=== PATIENT | female | born 1940 | race African-American/Black ===

== ENCOUNTER 2017-07-12 14:25 | Inpatient (IN) | payer OTHER ==
--- NOTE | 2017-07-12 15:59 | PDOC ---
History of Present Illness - General Chief Complaint: Wound Stated Complaint: Wound Infection Time Seen by Provider: 07/12/17 15:48 History Source: Patient Exam Limitations: No Limitations - History of Present Illness Initial Comments: CHIEF COMPLAINT: 76 y/o afebrile female with PMH HTN, PAD sent in by Dennis Gold for admission for gangrenous toe. HISTORY OF PRESENT ILLNESS: The patient states 2 months ago the toes on her right foot got run over by a wheelchair. She has been having pain ever since. She has been seeing Dr. Gold who noticed gangrene today and sent her here for amputation. Vital signs on arrival are within normal limits. REVIEW OF SYSTEMS: GENERAL/CONSTITUTIONAL: Subjective fever/chills. No weakness. No weight change. MUSCULOSKELETAL: No joint or muscle swelling or pain. No neck or back pain. SKIN: No rash or easy bruising. NEUROLOGIC: No headache, vertigo, loss of consciousness, or loss of sensation. PHYSICAL EXAM: VITAL_SIGNS: within normal limits GENERAL_APPEARANCE: alert, cooperative, no obvious discomfort. MENTAL_STATUS: speech clear, oriented X 3, responds appropriately to questions. NEURO: motor intact and sensory intact in injured extremity. EXTREMITIES: decreased dorsalis pedis pulse right foot. Distal half of right foot is cool. 3rd toe with open wound with active purulent, foul smelling discharge that is TTP. SKIN: warm, dry, good color. Past History - Past Medical History Allergies/Adverse Reactions: Allergies Allergy/AdvReac Type Severity Reaction Status Date / Time No Known Allergies Allergy Verified 07/12/17 15:03 Home Medications: Ambulatory Orders Furosemide 20 mg PO DAILY 07/12/17 Losartan/Hydrochlorothiazide [Losartan-Hctz 100-12.5 mg Tab] 1 tab PO DAILY Meloxicam 15 mg PO DAILY PRN 07/12/17 Metoprolol Succinate 50 mg PO DAILY 07/12/17 Terbinafine HCl 250 mg PO DAILY 07/12/17 Tramadol HCl 50 mg PO DAILY PRN 07/12/17 COPD: No DVT: No HTN: Yes Other medical history: PVD - Immunization History Immunization Up to Date: Yes - Suicide/Smoking/Psychosocial Hx Smoking History: Never smoked Have you smoked in the past 12 months: No Information on smoking cessation initiated: No Hx Alcohol Use: No Drug/Substance Use Hx: No Substance Use Type: None *Physical Exam - Vital Signs Last Vital Signs Temp Pulse Resp BP Pulse Ox 98.3 F 87 16 159/85 99 07/12/17 15:04 07/12/17 15:04 07/12/17 15:04 07/12/17 15:04 07/12/17 15:04 ED Treatment Course - LABORATORY CBC & Chemistry Diagram: 07/12/17 16:20 07/12/17 16:20 Medical Decision Making - Medical Decision Making A/P: 76 y/o female sent by Dr. Gold for admission for gangrenous toe. Plan is to draw labs and admit to hospitalist. *DC/Admit/Observation/Transfer Diagnosis at time of Disposition: Gangrenous toe - Discharge Dispostion Condition at time of disposition: Stable Admit: Yes - Referrals Referrals: Hal Gold [Primary Care Provider] - - Patient Instructions - Post Discharge Activity
[2017-07-12 16:50] LABS: BASO % 0.6 % (0-2.0); EOS % 6.1 % (0-4.5); HEMATOCRIT 32.1 % (32.4-45.2); HEMOGLOBIN 10.6 GM/dL (10.7-15.3); MEAN CELL VOLUME 87.7 fl (80-96); MEAN PLT VOLUME 8.5 fl (7.5-11.1); MONO % 9.5 % (3.8-10.2); NEUT % 63.8 % (42.8-82.8); PLATELET COUNT 325 K/MM3 (134-434); RBC 3.66 M/mm3 (3.60-5.2); RDW 12.8 % (11.6-15.6); WHITE BLOOD COUNT 6.8 K/mm3 (4.0-10.0)
[2017-07-12 17:05] LABS: INR 1.12 (0.82-1.09); PROTHROMBIN TIME (PATIENT) 12.7 SEC (9.98-11.88)
[2017-07-12] MEDS ORDERED: morphine CARPU-JECT 2 MG/1 ML DISP.SYRIN IVPUSH ONE (17:25)
[2017-07-12] MEDS ORDERED: MORPHINE SULFATE 10 MG/1 ML *VIAL ONE (17:28)
[2017-07-12 18:53] LABS: ALBUMIN 4.1 g/dl (3.4-5.0); ALK PHOS 95 U/L (45-117); ANION GAP 7 (8-16); BILIRUBIN,TOTAL 0.3 mg/dL (0.2-1.0); BLOOD UREA NITROGEN 46 mg/dL (7-18); CALCIUM 9.9 mg/dL (8.5-10.1); CHLORIDE 103 mmol/L (98-107); CO2 30 mmol/L (21-32); CREATININE 1.8 mg/dL (0.55-1.02); GLUCOSE,RANDOM 101 mg/dL (74-106); POTASSIUM 4.2 mmol/L (3.5-5.1); SGOT/AST 12 U/L (15-37); SGPT/ALT 16 U/L (12-78); SODIUM 140 mmol/L (136-145); TOT PROT 8.1 g/dl (6.4-8.2)
--- NOTE | 2017-07-12 18:55 | PN ---
Progress Note (short form) - Note Progress Note: [facility] Pt seen in wound care clinic today. Pt has right toe gangrene after trauma from wheelchair two months ago. Now here for workup. Pt will need CTA if Cr is normal. Pt will need angiogram to open circulation. Outpt US showed sfa disease. Will make pt npo past midnight. Dennis Gold DO
[2017-07-12] MEDS ORDERED: MORPHINE SULFATE 10 MG/1 ML *VIAL IVPUSH PRN (20:35)
--- NOTE | 2017-07-12 21:30 | HP ---
CHIEF COMPLAINT: right toe gangrene PCP: In [facility], vascular surgeon: Asif HISTORY OF PRESENT ILLNESS: This is a 76 year old female with a past medical history significant for PAD who presented to the ED from wound clinic for possible gangrene of right toe. Pt states that her toe was run over by a wheelchair a couple months ago and her doctor has been giving her pain medication without relief. She was also treated with a course of antibiotics and was started on terbinafine a couple weeks ago. ER course was notable for: (1) WBC 6.8 (2) BUN 46, Cr 1.8 Recent Travel: pt denies PAST MEDICAL HISTORY: HTN, PAD, OA knees PAST SURGICAL HISTORY: pt denies Social History: Smoking: pt denies Alcohol: pt denies Drugs: pt denies Family History: mother and father both in their 80s, h/o CVA 5 brothers all with HTN Allergies No Known Allergies Allergy (Verified 07/12/17 15:03) HOME MEDICATIONS: 3 Medication Instructions Recorded Furosemide 20 mg PO DAILY 07/12/17 Losartan/Hydrochlorothiazide 1 tab PO DAILY 07/12/17 [Losartan-Hctz 100-12.5 mg Tab] Meloxicam 15 mg PO DAILY PRN 07/12/17 Metoprolol Succinate 50 mg PO DAILY 07/12/17 Terbinafine HCl 250 mg PO DAILY 07/12/17 Tramadol HCl 50 mg PO DAILY PRN 07/12/17 REVIEW OF SYSTEMS CONSTITUTIONAL: Absent: fever, chills, diaphoresis, generalized weakness, malaise, loss of appetite, weight change HEENT: Absent: rhinorrhea, nasal congestion, throat pain, throat swelling, difficulty swallowing, mouth swelling, ear pain, eye pain, visual changes CARDIOVASCULAR: Absent: chest pain, syncope, palpitations, irregular heart rate, lightheadedness , peripheral edema RESPIRATORY: Absent: cough, shortness of breath, dyspnea with exertion, orthopnea, wheezing, stridor, hemoptysis GASTROINTESTINAL: Absent: abdominal pain, abdominal distension, nausea, vomiting, diarrhea, constipation, melena, hematochezia GENITOURINARY: Absent: dysuria, frequency, urgency, hesitancy, hematuria, flank pain, genital pain MUSCULOSKELETAL: Present: right 3 toe pain and swelling Absent: myalgia, arthralgia, joint swelling, back pain, neck pain SKIN: Absent: rash, itching, pallor HEMATOLOGIC/IMMUNOLOGIC: Absent: easy bleeding, easy bruising, lymphadenopathy, frequent infections ENDOCRINE: Absent: unexplained weight gain, unexplained weight loss, heat intolerance, cold intolerance NEUROLOGIC: Absent: headache, focal weakness or paresthesias, dizziness, unsteady gait, seizure, mental status changes, bladder or bowel incontinence PSYCHIATRIC: Absent: anxiety, depression, suicidal or homicidal ideation, hallucinations. PHYSICAL EXAMINATION Vital Signs - 24 hr 3 07/12/17 07/12/17 15:04 20:54 Temperature 98.3 F 98.8 F Pulse Rate 87 Pulse Rate [ 70 Apical] Respiratory 16 18 Rate Blood Pressure 159/85 Blood Pressure 159/69 [Right Arm] O2 Sat by Pulse 99 100 Oximetry (%) GENERAL: Awake, alert, and fully oriented, in no acute distress. HEAD: Normal with no signs of trauma. EYES: Pupils equal, round and reactive to light, extraocular movements intact, sclera anicteric, conjunctiva clear. No lid lag. EARS, NOSE, THROAT: Ears normal, nares patent, oropharynx clear without exudates. Moist mucous membranes. NECK: Normal range of motion, supple without lymphadenopathy, JVD, or masses. LUNGS: Breath sounds equal, clear to auscultation bilaterally. No wheezes, and no crackles. No accessory muscle use. HEART: Regular rate and rhythm, normal S1 and S2 without murmur, rub or gallop. ABDOMEN: Soft, nontender, not distended, normoactive bowel sounds, no guarding, no rebound, no masses. No hepatomegaly or splenomegaly. MUSCULOSKELETAL: Normal range of motion at all joints. No bony deformities or tenderness. No CVA tenderness. UPPER EXTREMITIES: 2+ pulses, warm, well-perfused. No cyanosis. No clubbing. No peripheral edema. LOWER EXTREMITIES: 2+ pulses, warm, well-perfused. No calf tenderness. 1+ peripheral edema B/L. NEUROLOGICAL: Cranial nerves II-XII intact. Normal speech. Normal gait. PSYCHIATRIC: Cooperative. Good eye contact. Appropriate mood and affect. SKIN: Warm, dry, normal turgor, no rashes or lesions noted, normal capillary refill. erythema to right foot with soft tissue swelling, 3rd toe with darkened discoloration, moist wound with slough, macerated skin, no active discharge, dried serosanguinous dc noted between toes Laboratory Results - last 24 hr 3 07/12/17 07/12/17 07/12/17 16:20 16:20 16:20 WBC 6.8 RBC 3.66 Hgb 10.6 L Hct 32.1 L MCV 87.7 MCH 29.0 MCHC 33.0 RDW 12.8 Plt Count 325 MPV 8.5 Neutrophils % 63.8 Lymphocytes % 20.0 Monocytes % 9.5 Eosinophils % 6.1 H Basophils % 0.6 PT with INR 12.70 H INR 1.12 Sodium Cancelled Potassium Cancelled Chloride Cancelled Carbon Dioxide Cancelled Anion Gap Cancelled BUN Cancelled Creatinine Cancelled Creat Clearance w eGFR Cancelled Random Glucose Cancelled Calcium Cancelled Total Bilirubin Cancelled AST Cancelled ALT Cancelled Alkaline Phosphatase Cancelled Total Protein Cancelled Albumin Cancelled Anti-A Titer Blood Type Antibody Screen 3 07/12/17 07/12/17 07/12/17 16:20 18:17 18:17 WBC RBC Hgb Hct MCV MCH MCHC RDW Plt Count MPV Neutrophils % Lymphocytes % Monocytes % Eosinophils % Basophils % PT with INR INR Sodium 140 Potassium 4.2 Chloride 103 Carbon Dioxide 30 Anion Gap 7 L BUN 46 H Creatinine 1.8 H Creat Clearance w eGFR 27.28 Random Glucose 101 Calcium 9.9 Total Bilirubin 0.3 AST 12 L ALT 16 Alkaline Phosphatase 95 Total Protein 8.1 Albumin 4.1 Anti-A Titer Cancelled Blood Type Cancelled O POSITIVE Antibody Screen Cancelled Negative ECG NSR vent rate94, QTC [address]/T wave changes ASSESSMENT/PLAN: 76yF with PMH HTN, PAD, R knee OA presented with R 3rd toe gangrene from wound clinic. Toe wound with gangrene - xray toe ordered - start unasyn 3g q6h - vascular consult appreciated, podiatry consult ordered by same - lasix IV for edema - ultram for pain MYA - hold meloxicam, losartan and HCTZ - repeat labs in am, renal consult if not improving HTN - cont metoprolol DVT PPX - heparin 5000 units SC ordered, start at 2pm in case of procedure tomorrow. FEN - hold IVF - bmp in am - NPO after midnight Dispo: Pt currently requires inpatient management of her emergent condition. Visit type - Emergency Visit Emergency Visit: Yes ED Registration Date: 07/12/17 Care time: The patient presented to the Emergency Department on the above date and was hospitalized for further evaluation of their emergent condition. - New Patient This patient is new to me today: Yes Date on this admission: 07/12/17 - Critical Care Critical Care patient: No
[2017-07-12] MEDS ORDERED: FUROSEMIDE 40 MG/4 ML INJECTABLE VIAL IVPUSH ONE (21:45)
[2017-07-12] MEDS: traMADol HCL 50 MG TABLET PO PRN (22:48)
[2017-07-12 23:08] VITALS: BMI 25.5
[2017-07-12] MEDS: AMPICILLIN NA/SULBACTAM NA 3 GM in SODIUM CHLORIDE 100 ML IVPB SCH (23:50)
[2017-07-13] MEDS ORDERED: MORPHINE SULFATE 10 MG/1 ML *VIAL IVPUSH ONE (02:02)
[2017-07-13] MEDS: AMPICILLIN NA/SULBACTAM NA 3 GM in SODIUM CHLORIDE 100 ML IVPB SCH ×2 (04:15→09:37)
[2017-07-13] MEDS ORDERED: HEPARIN NA (PORCINE) 5,000 UNITS/ML 1ML VIAL SQ SCH (06:00)
--- NOTE | 2017-07-13 07:59 | CONSULT ---
Consult - text type - Consultation Consultation Note: Patient seen yesterday in wound care clinic and admitted. Patient is a poor historian as to when her problem began. States foot was run over by wheelchair. Somewhere in the last six months. 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 decreased nvs, +gangarene 3rd toe right, xray negative for om, +dry, -drainage, -mal odor, om? gangarene 3rd toe pvd read and appreciated vascular note. MRI today. CRP, ESR, Hgba1c today. Betadine dressing change to 3rd toe right. will follow. Post op shoe to bedside.
--- NOTE | 2017-07-13 08:11 | EKG ---
Test Reason : Blood Pressure : / mmHG Vent. Rate : 094 BPM Atrial Rate : 094 BPM P-R Int : 212 ms QRS Dur : 082 ms QT Int : 352 ms P-R-T Axes : 060 015 029 degrees QTc Int : 440 ms SINUS RHYTHM WITH 1ST DEGREE A-V BLOCK ANTERIOR INFARCT , AGE UNDETERMINED ABNORMAL ECG NO PREVIOUS ECGS AVAILABLE Confirmed by DOMINIC MURILLO MD ([id number]) on 07/13/2017 8:11:10 AM Referred By: Confirmed By:DOMINIC MURILLO MD
[2017-07-13 08:30] LABS: BASO % 0.5 % (0-2.0); EOS % 8.7 % (0-4.5); HEMATOCRIT 32.2 % (32.4-45.2); HEMOGLOBIN 10.4 GM/dL (10.7-15.3); LYMPH % 26.2 % (8-40); MCH 28.2 pg (25.7-33.7); MCHC 32.1 g/dl (32.0-36.0); MEAN CELL VOLUME 87.9 fl (80-96); MEAN PLT VOLUME 7.6 fl (7.5-11.1); MONO % 10.5 % (3.8-10.2); NEUT % 54.1 % (42.8-82.8); PLATELET COUNT 330 K/MM3 (134-434); RBC 3.67 M/mm3 (3.60-5.2); RDW 12.5 % (11.6-15.6); WHITE BLOOD COUNT 6.7 K/mm3 (4.0-10.0)
--- NOTE | 2017-07-13 09:11 | PN ---
Progress Note (short form) - Note Progress Note: Vascular surgery Will hold off angiogram today Pt's Cr is 1.8. Will need hydration. Will rebook once Cr comes down to below 1.3 Podiatry on case for wound care of third toe. Dennis guevara DO
[2017-07-13] MEDS ORDERED: PT OWN MED DRAWER 7, Y5N ONE ×2 (09:21→14:39)
[2017-07-13 09:30] LABS: ANION GAP 8 (8-16); BLOOD UREA NITROGEN 43 mg/dL (7-18); CALCIUM 9.5 mg/dL (8.5-10.1); CHLORIDE 100 mmol/L (98-107); CO2 31 mmol/L (21-32); CREATININE 1.6 mg/dL (0.55-1.02); GLUCOSE,RANDOM 93 mg/dL (74-106); MAGNESIUM 2.3 mg/dL (1.8-2.4); PHOSPHOROUS 4.4 mg/dL (2.5-4.9); POTASSIUM 4.6 mmol/L (3.5-5.1); SODIUM 139 mmol/L (136-145)
[2017-07-13] MEDS: traMADol HCL 50 MG TABLET PO PRN ×3 (09:32→23:16)
[2017-07-13] MEDS ORDERED: FUROSEMIDE 40 MG/4 ML INJECTABLE VIAL IVPUSH SCH (10:00)
[2017-07-13] MEDS ORDERED: FUROSEMIDE 20 MG TABLET (FP) PO SCH (10:00)
--- NOTE | 2017-07-13 11:50 | PN ---
Physical Exam: SUBJECTIVE: Patient seen and examined. She denies fever, chills, denies ever being told she is a diabetic. OBJECTIVE: Vital Signs Period Temp Pulse Resp BP Sys/Mcgill Pulse Ox Last 24 Hr 97.4 F-98.8 F 70-87 16-20 121-159/50-85 99-100 PE Neuro: alert, awake, cn 2-12intact Pulm: CTAB CV: s1 s2 rrr Abd: s nt nd +bs Ext: R foot +1 pedal edema, third toe foul smelling, tender, discolored, moist Laboratory Results - last 24 hr 07/13/17 07/13/17 07:30 07:30 WBC 6.7 RBC 3.67 Hgb 10.4 L Hct 32.2 L MCV 87.9 MCH 28.2 MCHC 32.1 RDW 12.5 Plt Count 330 MPV 7.6 D Neutrophils % 54.1 Lymphocytes % 26.2 D Monocytes % 10.5 H Eosinophils % 8.7 H Basophils % 0.5 PT with INR INR Sodium 139 Potassium 4.6 Chloride 100 Carbon Dioxide 31 Anion Gap 8 BUN 43 H Creatinine 1.6 H Creat Clearance w eGFR Random Glucose 93 Calcium 9.5 Phosphorus 4.4 Magnesium 2.3 Total Bilirubin AST ALT Alkaline Phosphatase Total Protein Albumin Anti-A Titer Blood Type Antibody Screen Active Medications Generic Name Dose Route Start Last Admin Trade Name Freq PRN Reason Stop Dose Admin Collagenase 1 applic 07/13/17 10:00 Santyl - TP DAILY [facility] Furosemide 40 mg 07/13/17 10:00 Lasix Injection - IVPUSH DAILY [facility] Heparin Sodium (Porcine) 5,000 unit 07/13/17 14:00 Heparin - SQ TID [facility] Ampicillin Sodium/Sulbactam 100 mls @ 200 mls/hr 07/12/17 21:45 07/13/17 09: 37 Sodium 3 gm/ Sodium Chloride IVPB 200 mls/hr Q6H-IV [facility] Administration Metoprolol Succinate 50 mg 07/13/17 10:00 07/13/17 09:30 Toprol Xl - PO 50 mg DAILY [facility] Administration Tramadol HCl 50 mg 07/12/17 21:34 07/13/17 09:32 Ultram - PO 50 mg Q6H PRN Administration PAIN Assessments: 76 year old female with a past medical history significant for PAD admitted from wound clinic for possible gangrene of right toe. Plan: 1. Toe wound with gangrene - Angiogram on hold today pending renal function - Plan for 9am tomorrow, goal cr 1.3 - Stop unysan - Start vanco/zosyn per ID - Daily dressing changes - Podiatry input noted - D/w Vascular 2. MYA - Cr improved - Obtain UA - Hold Meloxicam, losartan, HCTZ, lasix - Stop lasix - Start fluids NS 83cc/hr 3. HTN - Cont metoprolol - Hold ARB/diuretics for now, if needed can start norvasc 4. PPX - Heparin held in AM for procedure - NPO after midnight Visit type - Emergency Visit Emergency Visit: Yes ED Registration Date: 07/12/17 Care time: The patient presented to the Emergency Department on the above date and was hospitalized for further evaluation of their emergent condition. - New Patient This patient is new to me today: Yes Date on this admission: 07/13/17 - Critical Care Critical Care patient: No
[2017-07-13] MEDS ORDERED: SODIUM CHLORIDE 1,000 ML IV SCH ×2 (12:45→13:30)
[2017-07-13] MEDS ORDERED: VANCOMYCIN 1,000 MG in DEXTROSE 5%-WATER - 250 ML IVPB ONE (13:05)
--- NOTE | 2017-07-13 13:07 | PN ---
Progress Note (short form) - Note Progress Note: ID Consult dictated Gangrene 3rd toe Await c/s Surgical evaluation Empiric zosyn/ vancomycin
[2017-07-13] MEDS: COLLAGENASE CLOSTRIDIUM HIST. 30 GRAMS TUBE TP SCH (13:41)
--- NOTE | 2017-07-13 14:03 | PN ---
Progress Note (short form) - Note Progress Note: Vascular Surgery Pt booked for angiogram for 9am sanjeev. Provided that Cr is within normal limits. Pt is being hydrated. NPO past midnight. Dennis guevara DO
[2017-07-13] MEDS: HEPARIN NA (PORCINE) 5,000 UNITS/ML 1ML VIAL SQ SCH ×2 (14:35→21:26)
[2017-07-13] MEDS: PIPERACILLIN/TAZOB 3.375 GM 3.375 GM in DEXTROSE 5%-WATER - 100 ML IVPB SCH ×2 (15:12→17:34)
[2017-07-13 18:54] LABS: URINE APPEARANCE CLEAR; URINE BILIRUBIN NEGATIVE (NEGATIVE); URINE BLOOD NEGATIVE (NEGATIVE); URINE COLOR STRAW; URINE GLUCOSE (UA) NEGATIVE (NEGATIVE); URINE KETONE NEGATIVE (NEGATIVE); URINE LEUK ESTERASE TRACE (NEGATIVE); URINE NITRITE NEGATIVE (NEGATIVE); URINE PROTEIN NEGATIVE (NEGATIVE); URINE UROBILINOGEN NEGATIVE mg/dL (0.2-1.0)
[2017-07-13 18:59] LABS: EPI CELLS RARE /HPF (FEW)
--- NOTE | 2017-07-13 19:05 | CONS ---
DATE OF CONSULTATION: DATE OF DICTATION: 07/13/2017 The patient is a 76-year-old female with history of peripheral vascular disease, evaluated for a necrotic foot ulcer. The patient reports that approximately 2 months ago, she had sustained trauma to her right foot after her toe was run over by a wheelchair. She subsequently developed an ulceration, which became necrotic. According to the patient, she had been treated with a course of oral antibiotic, without significant improvement. She was seen in the wound center and was referred admission for possible gangrene of the right 2nd toe. She complains of pain in the toe. She denies any purulent drainage. No associated fever or chills. She denies history of diabetes mellitus or prior history of serious foot infections. According to the note, she has a history of peripheral vascular disease. Past medical history positive for hypertension, peripheral vascular disease, osteoarthritis. No known allergies. Medications include Lasix, losartan, hydrochlorothiazide, metoprolol, tramadol. SOCIAL HISTORY: Lives at home. Nonsmoker. SYSTEMS REVIEW: Neurologic: No loss of consciousness, seizure activity, or focal weakness. Cardiac: Negative chest pain or palpitations. Respiratory: Negative cough or sputum production. Gastrointestinal: Negative vomiting or diarrhea. Genitourinary: Negative for urinary tract infection. LABORATORY DATA: White count 6.7, hematocrit 32.2, platelet count 330. BUN 43, creatinine 1.6. Blood cultures pending. PHYSICAL EXAMINATION: General: She is awake and alert, she is not acutely toxic appearing. Vital Signs: Temperature 97.4. Blood pressure 146/68. Pulse 80, regular. Respirations 20 per minute. Eyes: Sclerae anicteric. Heart Sounds: S1, S2. Lungs: Clear. Abdomen: Soft. No tenderness elicited. No mass, rebound or rigidity. Extremities: On examination of the right foot, there is an ulceration present over the dorsal aspect of the 3rd toe with what appeared to be necrotic tissue. There is erythema involving the toe and the dorsum of the right foot with soft tissue swelling. No purulent drainage or foul odor is noted. IMPRESSION: 1. Necrotic ulcer, possible gangrene, right 3rd toe. 2. Peripheral vascular disease. Surgical evaluation for wound care. Await culture results. Empiric antibiotic coverage with Zosyn and stat dose vancomycin. Will follow. Thank you for the kind referral. JOSE CARLOS DIAS M.D. [place]/[id number]
[2017-07-14] MEDS: PIPERACILLIN/TAZOB 3.375 GM 3.375 GM in DEXTROSE 5%-WATER - 100 ML IVPB SCH ×3 (01:50→17:35)
[2017-07-14] MEDS: traMADol HCL 50 MG TABLET PO PRN ×2 (06:50→17:55)
[2017-07-14] MEDS ORDERED: HEPARIN NA (PORCINE) 5,000 UNITS/ML 1ML VIAL ONE (08:38)
[2017-07-14] MEDS ORDERED: LIDOCAINE HCL 1%, 10 MG/ML (20ML VIAL) ONE (08:38)
[2017-07-14] MEDS ORDERED: POVIDONE-IODINE OINTMENT 10% - 28.4 GM TUBE ONE (08:39)
[2017-07-14 09:36] LABS: ANION GAP 6 (8-16); BLOOD UREA NITROGEN 33 mg/dL (7-18); CALCIUM 8.7 mg/dL (8.5-10.1); CHLORIDE 100 mmol/L (98-107); CO2 30 mmol/L (21-32); CREATININE 1.3 mg/dL (0.55-1.02); GLUCOSE,RANDOM 104 mg/dL (74-106); SGOT/AST 14 U/L (15-37); SGPT/ALT 15 U/L (12-78); SODIUM 136 mmol/L (136-145)
[2017-07-14 09:38] LABS: ALK PHOS 91 U/L (45-117); BILIRUBIN,TOTAL 0.4 mg/dL (0.2-1.0); TOT PROT 7.5 g/dl (6.4-8.2)
[2017-07-14] MEDS: COLLAGENASE CLOSTRIDIUM HIST. 30 GRAMS TUBE TP SCH (10:00)
[2017-07-14 10:43] LABS: BASO % 0.5 % (0-2.0); EOS % 10.4 % (0-4.5); HEMATOCRIT 32.1 % (32.4-45.2); HEMOGLOBIN 10.4 GM/dL (10.7-15.3); LYMPH % 20.5 % (8-40); MCH 28.2 pg (25.7-33.7); MCHC 32.3 g/dl (32.0-36.0); MEAN CELL VOLUME 87.2 fl (80-96); MEAN PLT VOLUME 8.3 fl (7.5-11.1); MONO % 10.2 % (3.8-10.2); NEUT % 58.4 % (42.8-82.8); PLATELET COUNT 331 K/MM3 (134-434); RBC 3.68 M/mm3 (3.60-5.2); RDW 12.6 % (11.6-15.6); WHITE BLOOD COUNT 6.2 K/mm3 (4.0-10.0)
[2017-07-14] MEDS ORDERED: MIDAZOLAM HCL 2 MG/2 ML SINGLE DOSE VIAL ONE (11:20)
[2017-07-14] MEDS ORDERED: ceFAZolin SODIUM 1 GM VIAL IVPB ONE (11:29)
[2017-07-14] MEDS ORDERED: ceFAZolin SODIUM 1 GM VIAL ONE (11:29)
[2017-07-14] MEDS ORDERED: LIDOCAINE HCL 1%, 10 MG/ML (50 mL VIAL) IJ ONE (11:32)
--- NOTE | 2017-07-14 12:36 | OP ---
Operative Note - Note: Operative Date: 07/14/17 Pre-Operative Diagnosis: right toe gangrene Operation: aortogram, RLE angiogram, SFA, atherectomy with DCB angioplasty Findings: 95% stenosis of right sfa in two areas. Pt only has peroneal artery runoff. collateral circulation in foot. Pt should get HBO, local wound care. Will not heal a amputation. Post-Operative Diagnosis: Same as Pre-op Surgeon: Dennis Gold Anesthesia: Fractional Estimated Blood Loss (mls): 50 Operative Report Dictated: Yes
--- NOTE | 2017-07-14 12:41 | PN ---
Progress Note (short form) - Note Progress Note: Vascular Surgery S/P atherectomy of sfa with drug coated balloon angioplasty . Pt has good dopplerable dp and pt pulses. Main runoff into foot is peroneal artery with collaterals. Started pt on plavix. Due to pt not having direct inline flow to the forefoot, pt would probably not do well with toe amputation. Recc local wound care and HBO to help heal the toe. If toe gets infected then pt will have no choice but to have toe amputation. start bacitracin to toe daily. Dennis Gold DO
[2017-07-14] MEDS ORDERED: ONDANSETRON 4 MG/2 ML VIAL IVPUSH PRN (12:54)
[2017-07-14] MEDS ORDERED: LACTATED RINGERS SOLUTION 1,000 ML IV SCH (13:00)
[2017-07-14] MEDS ORDERED: CLOPIDOGREL BISULFATE 75 MG TABLET (FP) ONE (13:26)
[2017-07-14] MEDS: CLOPIDOGREL BISULFATE 75 MG TABLET (FP) PO SCH (13:29)
--- NOTE | 2017-07-14 14:40 | PN ---
Progress Note, Physician History of Present Illness: Reports less R foot pain No fever/ chills Tolerating antibiotics WBC WNL Wound c/s pending - Current Medication List Current Medications: Active Medications Bacitracin (Bacitracin -) 1 applic TP DAILY [facility] Clopidogrel Bisulfate (Plavix -) 75 mg PO DAILY [facility] Last Admin: 07/14/17 13:29 Dose: 75 mg Collagenase (Santyl -) 1 applic TP DAILY [facility] Fentanyl (Sublimaze Injection -) 50 mcg IVPUSH [id number] PRN PRN Reason: PAIN-PACU ORDER X 4 DOSES ONLY Heparin Sodium (Porcine) (Heparin -) 5,000 unit SQ TID [facility] Lactated Ringer's (Lactated Ringers Solution) 1,000 mls @ 75 mls/hr IV ASDIR [facility] Piperacillin Sod/Tazobactam (Sod 3.375 gm/ Dextrose) 100 mls @ 200 mls/hr IVPB Q8H-IV [facility] PRN Reason: Protocol Metoprolol Succinate (Toprol Xl -) 50 mg PO DAILY [facility] Ondansetron HCl (Zofran Injection) 4 mg IVPUSH Q6H PRN PRN Reason: NAUSEA AND/OR VOMITING Stop: 07/15/17 02:00 Tramadol HCl (Ultram -) 50 mg PO Q6H PRN PRN Reason: PAIN - Objective Vital Signs: Vital Signs Temperature 98.2 F 07/14/17 13:30 Pulse Rate 83 07/14/17 13:30 Respiratory Rate 16 07/14/17 13:30 Blood Pressure 144/60 07/14/17 13:30 O2 Sat by Pulse Oximetry (%) 97 07/14/17 13:15 Constitutional: Yes: No Distress Eyes: Yes: Conjunctiva Clear Cardiovascular: Yes: Regular Rate and Rhythm, S1, S2 Respiratory: Yes: CTA Bilaterally Gastrointestinal: Yes: Normal Bowel Sounds, Soft. No: Tenderness Extremities: Yes: Other (R 3rd toe with necrotic ulcer, dorsal aspect. Malodorous drainage) Labs: CBC, BMP 07/14/17 07:20 07/14/17 08:50 INR, PTT INR 1.12 (0.82-1.09) 07/12/17 16:20 Assessment/Plan Infected necrotic R 3rd toe ulcer PVD Continue empiric zosyn Local wound care
--- NOTE | 2017-07-14 15:56 | PN ---
Progress Note (short form) - Note Progress Note: Subjective: The patient was seen and examined at the bedside, she is s/p aortogram, RLE angiogram, SFA, atherectomy with DCB angioplasty today Current Medications Generic Name Dose Route Start Last Admin Trade Name Freq PRN Reason Stop Dose Admin Bacitracin 1 applic 07/14/17 12:45 Bacitracin - TP DAILY [facility] Clopidogrel Bisulfate 75 mg 07/14/17 12:45 07/14/17 13:29 Plavix - PO 75 mg DAILY [facility] Administration Collagenase 1 applic 07/15/17 10:00 Santyl - TP DAILY [facility] Fentanyl 50 mcg 07/14/17 12:54 Sublimaze Injection - IVPUSH [id number] PRN PAIN-PACU ORDER X 4 DOSES ONLY Heparin Sodium (Porcine) 5,000 unit 07/14/17 14:00 Heparin - SQ TID [facility] Lactated Ringer's 1,000 mls @ 75 mls/hr 07/14/17 13:00 Lactated Ringers Solution IV ASDIR [facility] Piperacillin Sod/Tazobactam 100 mls @ 200 mls/hr 07/14/17 18:00 Sod 3.375 gm/ Dextrose IVPB Q8H-IV [facility] Protocol Metoprolol Succinate 50 mg 07/15/17 10:00 Toprol Xl - PO DAILY [facility] Ondansetron HCl 4 mg 07/14/17 12:54 Zofran Injection IVPUSH 07/15/17 02:00 Q6H PRN NAUSEA AND/OR VOMITING Tramadol HCl 50 mg 07/14/17 13:09 Ultram - PO Q6H PRN PAIN Objective: Vital Signs Period Temp Pulse Resp BP Sys/Mcgill Pulse Ox Last 24 Hr 97.5 F-98.4 F 73-89 12-20 119-183/54-90 95-100 Physical Exam: General: NAD, A&Ox3 Refused remainder of exam CBCD WBC 6.2 K/mm3 (4.0-10.0) 07/14/17 07:20 RBC 3.68 M/mm3 (3.60-5.2) 07/14/17 07:20 Hgb 10.4 GM/dL (10.7-15.3) L 07/14/17 07:20 Hct 32.1 % (32.4-45.2) L 07/14/17 07:20 MCV 87.2 fl (80-96) 07/14/17 07:20 MCHC 32.3 g/dl (32.0-36.0) 07/14/17 07:20 RDW 12.6 % (11.6-15.6) 07/14/17 07:20 Plt Count 331 K/MM3 (134-434) 07/14/17 07:20 MPV 8.3 fl (7.5-11.1) 07/14/17 07:20 CMP Sodium 136 mmol/L (136-145) 07/14/17 08:50 Potassium 4.0 mmol/L (3.5-5.1) 07/14/17 08:50 Chloride 100 mmol/L (98-107) 07/14/17 08:50 Carbon Dioxide 30 mmol/L (21-32) 07/14/17 08:50 Anion Gap 6 (8-16) L 07/14/17 08:50 BUN 33 mg/dL (7-18) H 07/14/17 08:50 Creatinine 1.3 mg/dL (0.55-1.02) H 07/14/17 08:50 Creat Clearance w eGFR 39.72 (>60) 07/14/17 08:50 Random Glucose 104 mg/dL (74-106) 07/14/17 08:50 Calcium 8.7 mg/dL (8.5-10.1) 07/14/17 08:50 Total Bilirubin 0.4 mg/dL (0.2-1.0) D 07/14/17 08:50 AST 14 U/L (15-37) L 07/14/17 08:50 ALT 15 U/L (12-78) 07/14/17 08:50 Alkaline Phosphatase 91 U/L (45-117) 07/14/17 08:50 Total Protein 7.5 g/dl (6.4-8.2) 07/14/17 08:50 Albumin 4.0 g/dl (3.4-5.0) 07/14/17 08:50 Microbiology 07/12/17 16:05 Blood - Peripheral Venous Blood Culture - Preliminary NO GROWTH OBTAINED AFTER 24 HOURS, INCUBATION TO CONTINUE FOR 4 DAYS. 07/12/17 16:20 Blood - Peripheral Venous Blood Culture - Preliminary NO GROWTH OBTAINED AFTER 24 HOURS, INCUBATION TO CONTINUE FOR 4 DAYS. Assessment: This is a 76 year old female with PMHx of PAD who presented to the ED with possible gangrene of the right toe Plan: 1) Infected necrotic right 3rd toe ulcer - Continue Zosyn - S/p right angiogram 07/14 - Start Plavix - Will need hyperbaric oxygen - Bacitracin to toe daily - Appreciate ID consult - Appreciate vascular surgery consult 2) MYA - Improving - Continue to hold Maloxicam, losartan, Hctz, lasix - Continue lactated ringers 3) HTN - Continue Toprol XL 4) F/E/N: - Diabetic/sodium controlled diet - Monitor electrolytes 5) Prophylaxis: - Heparin 5,000u sq tid 6) Dispo: - Requires continued inpatient care CODE STATUS: FULL CODE Visit type - Emergency Visit Emergency Visit: Yes ED Registration Date: 07/12/17 Care time: The patient presented to the Emergency Department on the above date and was hospitalized for further evaluation of their emergent condition. - New Patient This patient is new to me today: Yes Date on this admission: 07/14/17 - Critical Care Critical Care patient: No
[2017-07-14] MEDS: BACITRACIN 15 GM TUBE TOPICAL OINTMENT TP SCH (16:08)
[2017-07-14] MEDS: HEPARIN NA (PORCINE) 5,000 UNITS/ML 1ML VIAL SQ SCH ×2 (16:09→21:49)
[2017-07-14] MEDS ORDERED: PT OWN MED DRAWER 7, Y5N ONE (16:18)
[2017-07-14] MEDS ORDERED: VANCOMYCIN 1,000 MG in DEXTROSE 5%-WATER - 250 ML IVPB ONE (17:00)
[2017-07-15] MEDS: traMADol HCL 50 MG TABLET PO PRN ×3 (00:41→18:30)
[2017-07-15] MEDS ORDERED: MORPHINE SULFATE 10 MG/1 ML *VIAL IVPUSH ONE (02:30)
[2017-07-15] MEDS: PIPERACILLIN/TAZOB 3.375 GM 3.375 GM in DEXTROSE 5%-WATER - 100 ML IVPB SCH ×3 (02:38→18:18)
[2017-07-15] MEDS: HEPARIN NA (PORCINE) 5,000 UNITS/ML 1ML VIAL SQ SCH ×3 (06:28→21:33)
[2017-07-15 07:19] LABS: MCH 28.3 pg (25.7-33.7); MCHC 32.2 g/dl (32.0-36.0); MEAN CELL VOLUME 87.8 fl (80-96); MEAN PLT VOLUME 7.8 fl (7.5-11.1); PLATELET COUNT 245 K/MM3 (134-434); RBC 3.19 M/mm3 (3.60-5.2); RDW 12.6 % (11.6-15.6)
[2017-07-15 08:14] LABS: ALBUMIN 3.3 g/dl (3.4-5.0); ANION GAP 6 (8-16); BLOOD UREA NITROGEN 21 mg/dL (7-18); CALCIUM 8.4 mg/dL (8.5-10.1); CHLORIDE 103 mmol/L (98-107); CO2 29 mmol/L (21-32); GLUCOSE,RANDOM 97 mg/dL (74-106); POTASSIUM 4.4 mmol/L (3.5-5.1); SODIUM 138 mmol/L (136-145)
[2017-07-15 08:18] LABS: ALK PHOS 77 U/L (45-117); BILIRUBIN,TOTAL 0.6 mg/dL (0.2-1.0); CREATININE 1.2 mg/dL (0.55-1.02); SGOT/AST 14 U/L (15-37); SGPT/ALT 14 U/L (12-78); TOT PROT 6.5 g/dl (6.4-8.2)
--- NOTE | 2017-07-15 08:59 | PN ---
Progress Note (short form) - Note Progress Note: Anesthesia postop note 76 y/o F s/p MAC for angiogram, angioplasty POD#1, vss, no complaints, aaox3 No anesthesia complications.
[2017-07-15] MEDS ORDERED: PT OWN MED DRAWER 7, Y5N ONE ×3 (09:03→18:29)
[2017-07-15] MEDS: CLOPIDOGREL BISULFATE 75 MG TABLET (FP) PO SCH (09:12)
[2017-07-15] MEDS ORDERED: COLLAGENASE CLOSTRIDIUM HIST. 30 GRAMS TUBE TP SCH (10:00)
[2017-07-15] MEDS: MORPHINE SULFATE 10 MG/1 ML *VIAL IVPUSH PRN (11:30)
--- NOTE | 2017-07-15 14:34 | PN ---
Progress Note, Physician History of Present Illness: Reports less R foot pain No fever/ chills Tolerating antibiotics WBC WNL Wound c/s pending BC + ? micrococcus probable contaminant - Current Medication List Current Medications: Active Medications Bacitracin (Bacitracin -) 1 applic TP DAILY [facility] Last Admin: 07/14/17 16:08 Dose: 1 applic Clopidogrel Bisulfate (Plavix -) 75 mg PO DAILY [facility] Last Admin: 07/15/17 09:12 Dose: 75 mg Fentanyl (Sublimaze Injection -) 50 mcg IVPUSH [id number] PRN PRN Reason: PAIN-PACU ORDER X 4 DOSES ONLY Heparin Sodium (Porcine) (Heparin -) 5,000 unit SQ TID [facility] Last Admin: 07/15/17 06:28 Dose: 5,000 unit Piperacillin Sod/Tazobactam (Sod 3.375 gm/ Dextrose) 100 mls @ 200 mls/hr IVPB Q8H-IV [facility] PRN Reason: Protocol Last Admin: 07/15/17 09:15 Dose: 200 mls/hr Metoprolol Succinate (Toprol Xl -) 50 mg PO DAILY [facility] Last Admin: 07/15/17 09:12 Dose: 50 mg Morphine Sulfate (Morphine Injection -) 2 mg IVPUSH Q6H PRN PRN Reason: PAIN LEVEL 6-10 Last Admin: 07/15/17 11:30 Dose: 2 mg Tramadol HCl (Ultram -) 50 mg PO Q6H PRN PRN Reason: PAIN Last Admin: 07/15/17 09:12 Dose: 50 mg - Objective Vital Signs: Vital Signs Temperature 97.5 F L 07/15/17 09:10 Pulse Rate 94 H 07/15/17 09:10 Respiratory Rate 20 07/15/17 09:10 Blood Pressure 143/79 07/15/17 09:10 O2 Sat by Pulse Oximetry (%) 100 07/15/17 10:05 Constitutional: Yes: No Distress Eyes: Yes: Conjunctiva Clear Cardiovascular: Yes: Regular Rate and Rhythm, S1, S2 Respiratory: Yes: CTA Bilaterally Gastrointestinal: Yes: Normal Bowel Sounds, Soft. No: Tenderness Extremities: Yes: Other (R 3rd toe with necrotic ulcer, + malodorous drainage) Labs: CBC, BMP 07/15/17 06:50 07/15/17 06:50 INR, PTT INR 1.12 (0.82-1.09) 07/12/17 16:20 Assessment/Plan Infected necrotic R 3rd toe ulcer PVD + BC, likely contaminant Continue empiric zosyn Await final c/s Local wound care
--- NOTE | 2017-07-15 14:40 | PN ---
Progress Note (short form) - Note Progress Note: Vascular Surgery S/P angiogram. Spoke to family about [facility]. Bacitracin to toe daily. Please follow up in office on tuesday. make appt -- [phone]
[2017-07-15] MEDS: BACITRACIN 15 GM TUBE TOPICAL OINTMENT TP SCH (14:54)
--- NOTE | 2017-07-15 17:38 | PN ---
Progress Note (short form) - Note Progress Note: Subjective: The patient was seen and examined at the bedside, she has complaints of mild rash to abdomen, itching Current Medications Generic Name Dose Route Start Last Admin Trade Name Jerq PRN Reason Stop Dose Admin Bacitracin 1 applic 07/14/17 12:45 07/15/17 14:54 Bacitracin - TP 1 applic DAILY [facility] Administration Clopidogrel Bisulfate 75 mg 07/14/17 12:45 07/15/17 09:12 Plavix - PO 75 mg DAILY [facility] Administration Fentanyl 50 mcg 07/14/17 12:54 Sublimaze Injection - IVPUSH [id number] PRN PAIN-PACU ORDER X 4 DOSES ONLY Heparin Sodium (Porcine) 5,000 unit 07/14/17 14:00 07/15/17 14:53 Heparin - SQ 5,000 unit TID [facility] Administration Piperacillin Sod/Tazobactam 100 mls @ 200 mls/hr 07/14/17 18:00 07/15/17 09: 15 Sod 3.375 gm/ Dextrose IVPB 200 mls/hr Q8H-IV [facility] Administration Protocol Metoprolol Succinate 50 mg 07/15/17 10:00 07/15/17 09:12 Toprol Xl - PO 50 mg DAILY [facility] Administration Morphine Sulfate 2 mg 07/15/17 10:57 07/15/17 11:30 Morphine Injection - IVPUSH 2 mg Q6H PRN Administration PAIN LEVEL 6-10 Tramadol HCl 50 mg 07/14/17 13:09 07/15/17 09:12 Ultram - PO 50 mg Q6H PRN Administration PAIN Zinc Acetate/Diphenhydramine 1 applic 07/15/17 17:45 Benadryl 2% Cream TP DAILY [facility] Objective: Vital Signs Period Temp Pulse Resp BP Sys/Mcgill Pulse Ox Last 24 Hr 97.5 F-98.7 F 78-94 18-20 123-143/50-82 99-100 Physical Exam: General: NAD, A&Ox3 CBCD WBC 6.0 K/mm3 (4.0-10.0) 07/15/17 06:50 RBC 3.19 M/mm3 (3.60-5.2) L 07/15/17 06:50 Hgb 9.0 GM/dL (10.7-15.3) L D 07/15/17 06:50 Hct 28.0 % (32.4-45.2) L 07/15/17 06:50 MCV 87.8 fl (80-96) 07/15/17 06:50 MCHC 32.2 g/dl (32.0-36.0) 07/15/17 06:50 RDW 12.6 % (11.6-15.6) 07/15/17 06:50 Plt Count 245 K/MM3 (134-434) D 07/15/17 06:50 MPV 7.8 fl (7.5-11.1) 07/15/17 06:50 CMP Sodium 138 mmol/L (136-145) 07/15/17 06:50 Potassium 4.4 mmol/L (3.5-5.1) 07/15/17 06:50 Chloride 103 mmol/L (98-107) 07/15/17 06:50 Carbon Dioxide 29 mmol/L (21-32) 07/15/17 06:50 Anion Gap 6 (8-16) L 07/15/17 06:50 BUN 21 mg/dL (7-18) H 07/15/17 06:50 Creatinine 1.2 mg/dL (0.55-1.02) H 07/15/17 06:50 Creat Clearance w eGFR 43.56 (>60) 07/15/17 06:50 Random Glucose 97 mg/dL (74-106) 07/15/17 06:50 Calcium 8.4 mg/dL (8.5-10.1) L 07/15/17 06:50 Total Bilirubin 0.6 mg/dL (0.2-1.0) D 07/15/17 06:50 AST 14 U/L (15-37) L 07/15/17 06:50 ALT 14 U/L (12-78) 07/15/17 06:50 Alkaline Phosphatase 77 U/L (45-117) 07/15/17 06:50 Total Protein 6.5 g/dl (6.4-8.2) 07/15/17 06:50 Albumin 3.3 g/dl (3.4-5.0) L 07/15/17 06:50 Microbiology 07/12/17 16:20 Blood - Peripheral Venous Blood Culture - Preliminary NO GROWTH OBTAINED AFTER 72 HOURS, INCUBATION TO CONTINUE FOR 2 DAYS. 07/13/17 10:40 Toe - Right Third Gram Stain - Final 07/13/17 10:40 Toe - Right Third Wound Culture - Preliminary Lactose Fermenting Neg Bacilli Non Lactose Fermenting Gnb Group D Strep Or Entero Coccus Pending Organism Pending Organism#2 07/12/17 16:05 Blood - Peripheral Venous Blood Culture - Preliminary Gram Positive Cocci Assessment: This is a 76 year old female with PMHx of PAD who presented to the ED with possible gangrene of the right toe Plan: 1) Infected necrotic right 3rd toe ulcer - Continue Zosyn, awaiting final c/s - S/p right angiogram 07/14 - Continue Plavix - Will need hyperbaric oxygen - Bacitracin to toe daily - Appreciate ID consult, per ID + blood culture likely contaminant. - Appreciate vascular surgery consult 2) MYA - Improving - Continue to hold Maloxicam, losartan, Hctz, lasix - Continue lactated ringers 3) HTN - Continue Toprol XL 4) F/E/N: - Diabetic/sodium controlled diet - Monitor electrolytes 5) Prophylaxis: - Heparin 5,000u sq tid 6) Dispo: - Requires continued inpatient care CODE STATUS: FULL CODE Visit type - Emergency Visit Emergency Visit: Yes ED Registration Date: 07/12/17 Care time: The patient presented to the Emergency Department on the above date and was hospitalized for further evaluation of their emergent condition. - New Patient This patient is new to me today: No - Critical Care Critical Care patient: No
[2017-07-16] MEDS: PIPERACILLIN/TAZOB 3.375 GM 3.375 GM in DEXTROSE 5%-WATER - 100 ML IVPB SCH ×3 (01:18→17:57)
[2017-07-16] MEDS: traMADol HCL 50 MG TABLET PO PRN ×3 (04:05→21:43)
[2017-07-16] MEDS: HEPARIN NA (PORCINE) 5,000 UNITS/ML 1ML VIAL SQ SCH ×3 (06:35→21:43)
--- NOTE | 2017-07-16 08:13 | CONSULT ---
Consult - text type - Consultation Consultation Note: Patient seen in bed. vss tmax 98.8. No complaints. Eager to go home. wbc=6.0 yesterday, +necrotic changes 3rd toe dorsum, -om on mri, +fould odor, + dusky 3rd toe, -fluctuance, zwdw8l=9.3, multiple bacteria noted on wound culture 3rd toe right, +moist wound gangarene? necrotic changes Betadine dressing change done. Will watch demarcation of necrosis/ganagrene 3rd toe. If does not revascularize will consider debridement of toe. Ivabx as per ID. HBO eval. Recommend daily betadine dressing change as wound is now moist. ESR today. Nutrition consult once outpatient. Will follow till dc.
[2017-07-16 08:29] LABS: HEMATOCRIT 30.6 % (32.4-45.2); HEMOGLOBIN 9.9 GM/dL (10.7-15.3); MCH 28.2 pg (25.7-33.7); MCHC 32.3 g/dl (32.0-36.0); MEAN CELL VOLUME 87.4 fl (80-96); PLATELET COUNT 302 K/MM3 (134-434); RDW 12.6 % (11.6-15.6); WHITE BLOOD COUNT 7.8 K/mm3 (4.0-10.0)
[2017-07-16 08:45] LABS: ANION GAP 5 (8-16); BLOOD UREA NITROGEN 15 mg/dL (7-18); CALCIUM 8.5 mg/dL (8.5-10.1); CHLORIDE 101 mmol/L (98-107); CO2 29 mmol/L (21-32); CREATININE 1.2 mg/dL (0.55-1.02); GLUCOSE,RANDOM 93 mg/dL (74-106); POTASSIUM 4.3 mmol/L (3.5-5.1); SODIUM 135 mmol/L (136-145)
[2017-07-16] MEDS: BACITRACIN 15 GM TUBE TOPICAL OINTMENT TP SCH (09:12)
[2017-07-16] MEDS: CLOPIDOGREL BISULFATE 75 MG TABLET (FP) PO SCH (09:12)
[2017-07-16] MEDS: MORPHINE SULFATE 10 MG/1 ML *VIAL IVPUSH PRN ×2 (09:19→18:02)
--- NOTE | 2017-07-16 10:35 | PN ---
Progress Note, Physician History of Present Illness: Reports less R foot pain No fever/ chills Tolerating antibiotics WBC WNL Wound c/s mixed organisms; final c/s pending BC + ? micrococcus probable contaminant - Current Medication List Current Medications: Active Medications Bacitracin (Bacitracin -) 1 applic TP DAILY [facility] Last Admin: 07/16/17 09:12 Dose: 1 applic Clopidogrel Bisulfate (Plavix -) 75 mg PO DAILY [facility] Last Admin: 07/16/17 09:12 Dose: 75 mg Fentanyl (Sublimaze Injection -) 50 mcg IVPUSH [id number] PRN PRN Reason: PAIN-PACU ORDER X 4 DOSES ONLY Heparin Sodium (Porcine) (Heparin -) 5,000 unit SQ TID [facility] Last Admin: 07/16/17 06:35 Dose: 5,000 unit Piperacillin Sod/Tazobactam (Sod 3.375 gm/ Dextrose) 100 mls @ 200 mls/hr IVPB Q8H-IV [facility] PRN Reason: Protocol Last Admin: 07/16/17 09:10 Dose: 200 mls/hr Metoprolol Succinate (Toprol Xl -) 50 mg PO DAILY [facility] Last Admin: 07/16/17 09:11 Dose: 50 mg Morphine Sulfate (Morphine Injection -) 2 mg IVPUSH Q6H PRN PRN Reason: PAIN LEVEL 6-10 Last Admin: 07/16/17 09:19 Dose: 2 mg Tramadol HCl (Ultram -) 50 mg PO Q6H PRN PRN Reason: PAIN Last Admin: 07/16/17 04:05 Dose: 50 mg Zinc Acetate/Diphenhydramine (Benadryl 2% Cream) 1 applic TP DAILY [facility] Last Admin: 07/16/17 09:12 Dose: 1 applic - Objective Vital Signs: Vital Signs Temperature 98.7 F 07/16/17 06:00 Pulse Rate 93 H 07/16/17 06:00 Respiratory Rate 20 07/16/17 06:00 Blood Pressure 109/59 07/16/17 06:00 O2 Sat by Pulse Oximetry (%) 98 07/15/17 21:00 Constitutional: Yes: No Distress Eyes: Yes: Conjunctiva Clear Cardiovascular: Yes: Regular Rate and Rhythm, S1, S2 Respiratory: Yes: CTA Bilaterally Gastrointestinal: Yes: Normal Bowel Sounds, Soft, Tenderness Extremities: Yes: Other (R 3rd toe ulcer with drainage) Labs: CBC, BMP 07/16/17 07:00 07/16/17 07:00 INR, PTT INR 1.12 (0.82-1.09) 07/12/17 16:20 Assessment/Plan Infected necrotic R 3rd toe ulcer PVD + BC, likely contaminant Continue empiric zosyn Await final c/s Local wound care
--- NOTE | 2017-07-16 14:41 | PN ---
Progress Note (short form) - Note Progress Note: Subjective: The patient was seen and examined at the bedside, she has no complaints at this time Current Medications Generic Name Dose Route Start Last Admin Trade Name Jeannine PRN Reason Stop Dose Admin Bacitracin 1 applic 07/14/17 12:45 07/16/17 09:12 Bacitracin - TP 1 applic DAILY [facility] Administration Clopidogrel Bisulfate 75 mg 07/14/17 12:45 07/16/17 09:12 Plavix - PO 75 mg DAILY [facility] Administration Fentanyl 50 mcg 07/14/17 12:54 Sublimaze Injection - IVPUSH [id number] PRN PAIN-PACU ORDER X 4 DOSES ONLY Heparin Sodium (Porcine) 5,000 unit 07/14/17 14:00 07/16/17 14:02 Heparin - SQ 5,000 unit TID [facility] Administration Piperacillin Sod/Tazobactam 100 mls @ 200 mls/hr 07/14/17 18:00 07/16/17 09: 10 Sod 3.375 gm/ Dextrose IVPB 200 mls/hr Q8H-IV [facility] Administration Protocol Metoprolol Succinate 50 mg 07/15/17 10:00 07/16/17 09:11 Toprol Xl - PO 50 mg DAILY [facility] Administration Morphine Sulfate 2 mg 07/15/17 10:57 07/16/17 09:19 Morphine Injection - IVPUSH 2 mg Q6H PRN Administration PAIN LEVEL 6-10 Tramadol HCl 50 mg 07/14/17 13:09 07/16/17 04:05 Ultram - PO 50 mg Q6H PRN Administration PAIN Zinc Acetate/Diphenhydramine 1 applic 07/15/17 17:45 07/16/17 09:12 Benadryl 2% Cream TP 1 applic DAILY [facility] Administration Objective: Vital Signs Period Temp Pulse Resp BP Sys/Mcgill Pulse Ox Last 24 Hr 97.8 F-98.8 F 79-93 18-20 109-136/50-59 98 Physical Exam: General: NAD, A&Ox3 Patient refused exam today Right foot with dressing, refused removal CBCD WBC 7.8 K/mm3 (4.0-10.0) 07/16/17 07:00 RBC 3.50 M/mm3 (3.60-5.2) L 07/16/17 07:00 Hgb 9.9 GM/dL (10.7-15.3) L 07/16/17 07:00 Hct 30.6 % (32.4-45.2) L 07/16/17 07:00 MCV 87.4 fl (80-96) 07/16/17 07:00 MCHC 32.3 g/dl (32.0-36.0) 07/16/17 07:00 RDW 12.6 % (11.6-15.6) 07/16/17 07:00 Plt Count 302 K/MM3 (134-434) D 07/16/17 07:00 MPV 8.0 fl (7.5-11.1) 07/16/17 07:00 CMP Sodium 135 mmol/L (136-145) L 07/16/17 07:00 Potassium 4.3 mmol/L (3.5-5.1) 07/16/17 07:00 Chloride 101 mmol/L (98-107) 07/16/17 07:00 Carbon Dioxide 29 mmol/L (21-32) 07/16/17 07:00 Anion Gap 5 (8-16) L 07/16/17 07:00 BUN 15 mg/dL (7-18) 07/16/17 07:00 Creatinine 1.2 mg/dL (0.55-1.02) H 07/16/17 07:00 Creat Clearance w eGFR 43.56 (>60) 07/15/17 06:50 Random Glucose 93 mg/dL (74-106) 07/16/17 07:00 Calcium 8.5 mg/dL (8.5-10.1) 07/16/17 07:00 Total Bilirubin 0.6 mg/dL (0.2-1.0) D 07/15/17 06:50 AST 14 U/L (15-37) L 07/15/17 06:50 ALT 14 U/L (12-78) 07/15/17 06:50 Alkaline Phosphatase 77 U/L (45-117) 07/15/17 06:50 Total Protein 6.5 g/dl (6.4-8.2) 07/15/17 06:50 Albumin 3.3 g/dl (3.4-5.0) L 07/15/17 06:50 Microbiology 07/13/17 10:40 Toe - Right Third Gram Stain - Final 07/13/17 10:40 Toe - Right Third Wound Culture - Preliminary Escherichia Coli Morganella Morganii Enterococcus Faecalis Pending Organism Staphylococcus Coagulase Neg 07/15/17 12:30 Blood - Peripheral Venous Blood Culture - Preliminary NO GROWTH OBTAINED AFTER 24 HOURS, INCUBATION TO CONTINUE FOR 4 DAYS. 07/15/17 12:20 Blood - Peripheral Venous Blood Culture - Preliminary NO GROWTH OBTAINED AFTER 24 HOURS, INCUBATION TO CONTINUE FOR 4 DAYS. 07/12/17 16:20 Blood - Peripheral Venous Blood Culture - Preliminary NO GROWTH OBTAINED AFTER 72 HOURS, INCUBATION TO CONTINUE FOR 2 DAYS. 07/12/17 16:05 Blood - Peripheral Venous Blood Culture - Preliminary Gram Positive Cocci Assessment: This is a 76 year old female with PMHx of PAD who presented to the ED with possible gangrene of the right toe Plan: 1) Infected necrotic right 3rd toe ulcer - Continue Zosyn, awaiting final c/s - S/p right angiogram 07/14 - Continue Plavix - Will need hyperbaric oxygen - Bacitracin to toe daily - Appreciate ID consult, per ID + blood culture likely contaminant. - Appreciate vascular surgery consult 2) MYA - Improving - Continue to hold Maloxicam, losartan, Hctz, lasix 3) HTN - Continue Toprol XL 4) F/E/N: - Diabetic/sodium controlled diet - Monitor electrolytes 5) Prophylaxis: - Heparin 5,000u sq tid 6) Dispo: - Requires continued inpatient care CODE STATUS: FULL CODE Visit type - Emergency Visit Emergency Visit: Yes ED Registration Date: 07/12/17 Care time: The patient presented to the Emergency Department on the above date and was hospitalized for further evaluation of their emergent condition. - New Patient This patient is new to me today: No - Critical Care Critical Care patient: No
[2017-07-16] MEDS ORDERED: PT OWN MED DRAWER 7, Y5N ONE (17:54)
[2017-07-17] MEDS: MORPHINE SULFATE 10 MG/1 ML *VIAL IVPUSH PRN (01:27)
[2017-07-17] MEDS: PIPERACILLIN/TAZOB 3.375 GM 3.375 GM in DEXTROSE 5%-WATER - 100 ML IVPB SCH ×3 (01:30→17:22)
[2017-07-17] MEDS: HEPARIN NA (PORCINE) 5,000 UNITS/ML 1ML VIAL SQ SCH ×3 (06:33→21:57)
[2017-07-17] MEDS ORDERED: PT OWN MED DRAWER 7, Y5N ONE ×2 (09:06→17:02)
[2017-07-17] MEDS: CLOPIDOGREL BISULFATE 75 MG TABLET (FP) PO SCH (09:47)
[2017-07-17] MEDS: BACITRACIN 15 GM TUBE TOPICAL OINTMENT TP SCH (09:47)
--- NOTE | 2017-07-17 12:33 | PN ---
Progress Note (short form) - Note Progress Note: Subjective: The patient was seen and examined at the bedside, she has no complaints at this time Current Medications Generic Name Dose Route Start Last Admin Trade Name Jeannine PRN Reason Stop Dose Admin Bacitracin 1 applic 07/14/17 12:45 07/17/17 09:47 Bacitracin - TP 1 applic DAILY [facility] Administration Clopidogrel Bisulfate 75 mg 07/14/17 12:45 07/17/17 09:47 Plavix - PO 75 mg DAILY [facility] Administration Fentanyl 50 mcg 07/14/17 12:54 Sublimaze Injection - IVPUSH [id number] PRN PAIN-PACU ORDER X 4 DOSES ONLY Heparin Sodium (Porcine) 5,000 unit 07/14/17 14:00 07/17/17 06:33 Heparin - SQ 5,000 unit TID [facility] Administration Piperacillin Sod/Tazobactam 100 mls @ 200 mls/hr 07/14/17 18:00 07/17/17 09: 46 Sod 3.375 gm/ Dextrose IVPB 200 mls/hr Q8H-IV [facility] Administration Protocol Metoprolol Succinate 50 mg 07/15/17 10:00 07/17/17 09:47 Toprol Xl - PO 50 mg DAILY [facility] Administration Morphine Sulfate 2 mg 07/15/17 10:57 07/17/17 01:27 Morphine Injection - IVPUSH 2 mg Q6H PRN Administration PAIN LEVEL 6-10 Tramadol HCl 50 mg 07/14/17 13:09 07/16/17 21:43 Ultram - PO 50 mg Q6H PRN Administration PAIN Zinc Acetate/Diphenhydramine 1 applic 07/15/17 17:45 07/17/17 09:46 Benadryl 2% Cream TP 1 applic DAILY [facility] Administration Objective: Vital Signs Period Temp Pulse Resp BP Sys/Mcgill Pulse Ox Last 24 Hr 98.6 F-99.6 F 72-94 18-20 101-132/46-84 100 Physical Exam: General: NAD, A&Ox3 Lungs: CTA bilaterally Heart: RRR, S1S2 Abd: Soft, non-tender, non-distended. Normoactive bowel sounds Right foot with dressing, refused removal CBCD WBC 7.8 K/mm3 (4.0-10.0) 07/16/17 07:00 RBC 3.50 M/mm3 (3.60-5.2) L 07/16/17 07:00 Hgb 9.9 GM/dL (10.7-15.3) L 07/16/17 07:00 Hct 30.6 % (32.4-45.2) L 07/16/17 07:00 MCV 87.4 fl (80-96) 07/16/17 07:00 MCHC 32.3 g/dl (32.0-36.0) 07/16/17 07:00 RDW 12.6 % (11.6-15.6) 07/16/17 07:00 Plt Count 302 K/MM3 (134-434) D 07/16/17 07:00 MPV 8.0 fl (7.5-11.1) 07/16/17 07:00 CMP Sodium 135 mmol/L (136-145) L 07/16/17 07:00 Potassium 4.3 mmol/L (3.5-5.1) 07/16/17 07:00 Chloride 101 mmol/L (98-107) 07/16/17 07:00 Carbon Dioxide 29 mmol/L (21-32) 07/16/17 07:00 Anion Gap 5 (8-16) L 07/16/17 07:00 BUN 15 mg/dL (7-18) 07/16/17 07:00 Creatinine 1.2 mg/dL (0.55-1.02) H 07/16/17 07:00 Creat Clearance w eGFR 43.56 (>60) 07/15/17 06:50 Random Glucose 93 mg/dL (74-106) 07/16/17 07:00 Calcium 8.5 mg/dL (8.5-10.1) 07/16/17 07:00 Total Bilirubin 0.6 mg/dL (0.2-1.0) D 07/15/17 06:50 AST 14 U/L (15-37) L 07/15/17 06:50 ALT 14 U/L (12-78) 07/15/17 06:50 Alkaline Phosphatase 77 U/L (45-117) 07/15/17 06:50 Total Protein 6.5 g/dl (6.4-8.2) 07/15/17 06:50 Albumin 3.3 g/dl (3.4-5.0) L 07/15/17 06:50 Microbiology 07/15/17 12:20 Blood - Peripheral Venous Blood Culture - Preliminary NO GROWTH OBTAINED AFTER 48 HOURS, INCUBATION TO CONTINUE FOR 3 DAYS. 07/12/17 16:05 Blood - Peripheral Venous Blood Culture - Final Micrococcus & Related Species 07/13/17 10:40 Toe - Right Third Gram Stain - Final 07/13/17 10:40 Toe - Right Third Wound Culture - Final Escherichia Coli Morganella Morganii Enterococcus Faecalis Viridans Streptococcus Group Staphylococcus Coagulase Neg 07/12/17 16:20 Blood - Peripheral Venous Blood Culture - Preliminary NO GROWTH OBTAINED AFTER 96 HOURS, INCUBATION TO CONTINUE FOR 1 DAYS. 07/15/17 12:30 Blood - Peripheral Venous Blood Culture - Preliminary NO GROWTH OBTAINED AFTER 24 HOURS, INCUBATION TO CONTINUE FOR 4 DAYS. Assessment: This is a 76 year old female with PMHx of PAD who presented to the ED with possible gangrene of the right toe Plan: 1) Infected necrotic right 3rd toe ulcer - Continue Zosyn, awaiting final c/s - S/p right angiogram 07/14 - Continue Plavix - Will need hyperbaric oxygen - Bacitracin to toe daily - Appreciate ID consult, per ID + blood culture likely contaminant. - Appreciate vascular surgery consult 2) MYA - Improving - Continue to hold Maloxicam, losartan, Hctz, lasix 3) HTN - Continue Toprol XL 4) F/E/N: - Diabetic/sodium controlled diet - Monitor electrolytes 5) Prophylaxis: - Heparin 5,000u sq tid 6) Dispo: - Requires continued inpatient care - Discharge once final culture and sensitivities results and outpatient abx can be determined CODE STATUS: FULL CODE Visit type - Emergency Visit Emergency Visit: Yes ED Registration Date: 07/12/17 Care time: The patient presented to the Emergency Department on the above date and was hospitalized for further evaluation of their emergent condition. - New Patient This patient is new to me today: No - Critical Care Critical Care patient: No
[2017-07-17] MEDS: traMADol HCL 50 MG TABLET PO PRN ×2 (15:14→21:56)
[2017-07-17] MEDS ORDERED: INSULIN (NOVOLOG) ASPART 100 UNITS/ML 10ML VIAL ONE (18:50)
[2017-07-18] MEDS: PIPERACILLIN/TAZOB 3.375 GM 3.375 GM in DEXTROSE 5%-WATER - 100 ML IVPB SCH ×3 (03:19→17:53)
[2017-07-18] MEDS: HEPARIN NA (PORCINE) 5,000 UNITS/ML 1ML VIAL SQ SCH ×3 (07:01→21:18)
[2017-07-18] MEDS: traMADol HCL 50 MG TABLET PO PRN ×3 (08:05→20:55)
[2017-07-18 09:04] LABS: ANION GAP 8 (8-16); BLOOD UREA NITROGEN 13 mg/dL (7-18); CALCIUM 8.8 mg/dL (8.5-10.1); CHLORIDE 101 mmol/L (98-107); CO2 28 mmol/L (21-32); GLUCOSE,RANDOM 96 mg/dL (74-106); SODIUM 137 mmol/L (136-145)
[2017-07-18] MEDS: CLOPIDOGREL BISULFATE 75 MG TABLET (FP) PO SCH (10:16)
[2017-07-18] MEDS: BACITRACIN 15 GM TUBE TOPICAL OINTMENT TP SCH (10:17)
--- NOTE | 2017-07-18 13:34 | PN ---
Progress Note (short form) - Note Progress Note: Subjective: The patient was seen and examined at the bedside, she has no complaints at this time Current Medications Generic Name Dose Route Start Last Admin Trade Name Jeannine PRN Reason Stop Dose Admin Bacitracin 1 applic 07/14/17 12:45 07/18/17 10:17 Bacitracin - TP 1 applic DAILY [facility] Administration Clopidogrel Bisulfate 75 mg 07/14/17 12:45 07/18/17 10:16 Plavix - PO 75 mg DAILY [facility] Administration Fentanyl 50 mcg 07/14/17 12:54 Sublimaze Injection - IVPUSH [id number] PRN PAIN-PACU ORDER X 4 DOSES ONLY Heparin Sodium (Porcine) 5,000 unit 07/14/17 14:00 07/18/17 07:01 Heparin - SQ 5,000 unit TID [facility] Administration Piperacillin Sod/Tazobactam 100 mls @ 200 mls/hr 07/14/17 18:00 07/18/17 10: 26 Sod 3.375 gm/ Dextrose IVPB 200 mls/hr Q8H-IV [facility] Administration Protocol Metoprolol Succinate 50 mg 07/15/17 10:00 07/18/17 10:16 Toprol Xl - PO 50 mg DAILY [facility] Administration Tramadol HCl 50 mg 07/14/17 13:09 07/18/17 08:05 Ultram - PO 50 mg Q6H PRN Administration PAIN Zinc Acetate/Diphenhydramine 1 applic 07/15/17 17:45 07/18/17 11:33 Benadryl 2% Cream TP 1 applic DAILY [facility] Administration Objective: Vital Signs Period Temp Pulse Resp BP Sys/Mcgill Pulse Ox Last 24 Hr 98.1 F-98.8 F 87-90 16-20 105-126/54-86 98 Physical Exam: General: NAD, A&Ox3 Lungs: CTA bilaterally Heart: RRR, S1S2 Abd: Soft, non-tender, non-distended. Normoactive bowel sounds Ext: Right foot, 3rd toe with slough, foul smelling, CBCD WBC 7.8 K/mm3 (4.0-10.0) 07/16/17 07:00 RBC 3.50 M/mm3 (3.60-5.2) L 07/16/17 07:00 Hgb 9.9 GM/dL (10.7-15.3) L 07/16/17 07:00 Hct 30.6 % (32.4-45.2) L 07/16/17 07:00 MCV 87.4 fl (80-96) 07/16/17 07:00 MCHC 32.3 g/dl (32.0-36.0) 07/16/17 07:00 RDW 12.6 % (11.6-15.6) 07/16/17 07:00 Plt Count 302 K/MM3 (134-434) D 07/16/17 07:00 MPV 8.0 fl (7.5-11.1) 07/16/17 07:00 CMP Sodium 137 mmol/L (136-145) 07/18/17 07:00 Potassium 4.0 mmol/L (3.5-5.1) 07/18/17 07:00 Chloride 101 mmol/L (98-107) 07/18/17 07:00 Carbon Dioxide 28 mmol/L (21-32) 07/18/17 07:00 Anion Gap 8 (8-16) 07/18/17 07:00 BUN 13 mg/dL (7-18) 07/18/17 07:00 Creatinine 1.0 mg/dL (0.55-1.02) 07/18/17 07:00 Creat Clearance w eGFR 43.56 (>60) 07/15/17 06:50 Random Glucose 96 mg/dL (74-106) 07/18/17 07:00 Calcium 8.8 mg/dL (8.5-10.1) 07/18/17 07:00 Total Bilirubin 0.6 mg/dL (0.2-1.0) D 07/15/17 06:50 AST 14 U/L (15-37) L 07/15/17 06:50 ALT 14 U/L (12-78) 07/15/17 06:50 Alkaline Phosphatase 77 U/L (45-117) 07/15/17 06:50 Total Protein 6.5 g/dl (6.4-8.2) 07/15/17 06:50 Albumin 3.3 g/dl (3.4-5.0) L 07/15/17 06:50 Microbiology 07/15/17 12:30 Blood - Peripheral Venous Blood Culture - Preliminary NO GROWTH OBTAINED AFTER 72 HOURS, INCUBATION TO CONTINUE FOR 2 DAYS. 07/15/17 12:20 Blood - Peripheral Venous Blood Culture - Preliminary NO GROWTH OBTAINED AFTER 72 HOURS, INCUBATION TO CONTINUE FOR 2 DAYS. 07/12/17 16:20 Blood - Peripheral Venous Blood Culture - Final NO GROWTH AFTER 5 DAYS INCUBATION 07/12/17 16:05 Blood - Peripheral Venous Blood Culture - Final Micrococcus & Related Species 07/13/17 10:40 Toe - Right Third Gram Stain - Final 07/13/17 10:40 Toe - Right Third Wound Culture - Final Escherichia Coli Morganella Morganii Enterococcus Faecalis Viridans Streptococcus Group Staphylococcus Coagulase Neg Assessment: This is a 76 year old female with PMHx of PAD who presented to the ED with possible gangrene of the right toe Plan: 1) Infected necrotic right 3rd toe ulcer - Per podiatry note, will take to OR tomorrow for amputation if patient consents (she is waiting to speak to her daughter) - Continue Zosyn, discussed with Dr. Gaitan, if patient does not want amputation , can discharge on po Flagyl and Levaquin - S/p right angiogram 07/14 - Continue Plavix - Will need hyperbaric oxygen - Bacitracin to toe daily - Appreciate ID consult, per ID + blood culture likely contaminant. - Appreciate vascular surgery consult 2) HTN - Continue Toprol XL - BP controlled - Hold losartan/hctz, lasix 3) MYA - Resolved 4) F/E/N: - Diabetic/sodium controlled diet - Monitor electrolytes 5) Prophylaxis: - Heparin 5,000u sq tid 6) Dispo: - Requires continued inpatient care CODE STATUS: FULL CODE Visit type - Emergency Visit Emergency Visit: Yes ED Registration Date: 07/12/17 Care time: The patient presented to the Emergency Department on the above date and was hospitalized for further evaluation of their emergent condition. - New Patient This patient is new to me today: No - Critical Care Critical Care patient: No
--- NOTE | 2017-07-18 15:54 | PN ---
Progress Note (short form) - Note Progress Note: Patient seen at [facility] at 12:45pm. Eager to go home. VSS. Tmax 98.8 3rd toe right foot has demarcated and it is now black distal 3/4, +fluctuant, + gangarene, +mal odor Problem List - Problems (1) Gangrenous toe Assessment/Plan: gangarene/necrosis 3rd toe right Discussed tx options with patient. HBO, IVABX, Wound Care vs Amputation. Patient will think about it and decide tx plan. Discussed also by phone with Elvia from my office her options. They will decide and get back to me. Medical clearnce for debridement. Vascular Clearance for debridement. Order for consent put in. Preop labs ordered. Code(s): I96 - GANGRENE, NOT ELSEWHERE CLASSIFIED
[2017-07-18 17:44] LABS: BASO % 0.2 % (0-2.0); EOS % 11.9 % (0-4.5); HEMOGLOBIN 8.8 GM/dL (10.7-15.3); LYMPH % 13.9 % (8-40); MCH 28.6 pg (25.7-33.7); MCHC 32.6 g/dl (32.0-36.0); MEAN CELL VOLUME 87.7 fl (80-96); MONO % 11.1 % (3.8-10.2); NEUT % 62.9 % (42.8-82.8); PLATELET COUNT 287 K/MM3 (134-434); RBC 3.08 M/mm3 (3.60-5.2); RDW 12.7 % (11.6-15.6); WHITE BLOOD COUNT 8.1 K/mm3 (4.0-10.0)
[2017-07-19] MEDS: PIPERACILLIN/TAZOB 3.375 GM 3.375 GM in DEXTROSE 5%-WATER - 100 ML IVPB SCH ×3 (01:21→18:07)
[2017-07-19] MEDS: HEPARIN NA (PORCINE) 5,000 UNITS/ML 1ML VIAL SQ SCH ×3 (06:33→22:04)
[2017-07-19] MEDS ORDERED: ONDANSETRON 4 MG/2 ML VIAL IVPUSH PRN (08:49)
[2017-07-19] MEDS ORDERED: PROPOFOL 20 ML ONE ×2 (08:59→09:00)
[2017-07-19] MEDS ORDERED: LIDOCAINE HCL/PF 2% SDV 5ML VIAL ONE (08:59)
[2017-07-19] MEDS ORDERED: MIDAZOLAM HCL 2 MG/2 ML SINGLE DOSE VIAL ONE (08:59)
[2017-07-19] MEDS ORDERED: BUPIVACAINE HCL/PF 0.5% (5MG/ML) 10 ML VIAL IJ ONE (09:15)
--- NOTE | 2017-07-19 09:54 | OP ---
Operative Note - Note: Operative Date: 07/19/17 Pre-Operative Diagnosis: Gangarene necrosis 3rd toe right Operation: debridement of bone and soft tissue and biopsy proximal phalanx 3rd toe right Findings: necrotic tissue and bone 3rd toe right Implants: none Post-Operative Diagnosis: Same as Pre-op Surgeon: Naman Sanchez Anesthesia: Local, MAC Specimens Removed: bone and soft tissue 3rd toe right Estimated Blood Loss (mls): 5 Instrument used (Debridements only): knife and double action bone cutter Drains & Tubes with Location: / plain packing proximal wound Drains, Volume Out (mls): 0 Blood Volume Replaced (mls): 0 Fluid Volume Replaced (mls): 0 Operative Report Dictated: No
[2017-07-19] MEDS ORDERED: BUPIVACAINE HCL/PF 0.5% (5MG/ML) 10 ML VIAL ONE (10:51)
[2017-07-19 11:14] LABS: BASO % 0.2 % (0-2.0); EOS % 14.1 % (0-4.5); HEMATOCRIT 28.3 % (32.4-45.2); LYMPH % 15.6 % (8-40); MCH 27.8 pg (25.7-33.7); MCHC 31.7 g/dl (32.0-36.0); MEAN CELL VOLUME 87.9 fl (80-96); MEAN PLT VOLUME 7.8 fl (7.5-11.1); MONO % 10.5 % (3.8-10.2); NEUT % 59.6 % (42.8-82.8); PLATELET COUNT 255 K/MM3 (134-434); RBC 3.22 M/mm3 (3.60-5.2); WHITE BLOOD COUNT 6.3 K/mm3 (4.0-10.0)
[2017-07-19] MEDS ORDERED: PT OWN MED DRAWER 7, Y5N ONE ×2 (11:22→17:17)
[2017-07-19] MEDS: LACTATED RINGERS SOLUTION 1,000 ML IV SCH (11:24)
[2017-07-19] MEDS: BACITRACIN 15 GM TUBE TOPICAL OINTMENT TP SCH (11:24)
[2017-07-19] MEDS: CLOPIDOGREL BISULFATE 75 MG TABLET (FP) PO SCH (11:39)
--- NOTE | 2017-07-19 14:20 | PN ---
Physical Exam: SUBJECTIVE: Patient seen and examined. Back from debridement procedure. Denies pain. OBJECTIVE: Vital Signs Period Temp Pulse Resp BP Sys/Mcgill Pulse Ox Last 24 Hr 98.0 F-99.0 F 62-93 16-20 120-153/51-81 96-100 GENERAL: The patient is awake, alert, and fully oriented, in no acute distress. LUNGS: Breath sounds equal, clear to auscultation bilaterally, no wheezes, no crackles, no accessory muscle use. HEART: Regular rate and rhythm, S1, S2 ABDOMEN: Soft, nontender, nondistended, normoactive bowel sounds, no guarding, no rebound UPPER EXTREMITIES: 2+ pulses, warm, well-perfused, no edema. RIGHT LOWER EXTREMITY: Surgical dressing and wrapping from toes to ankle, c/d/ i. Wound not visualized. Tips of toes pink, warm, + motor +sensory NEUROLOGICAL: Cranial nerves II through XII grossly intact. Normal speech, gait not observed. Laboratory Results - last 24 hr 07/18/17 07/18/17 07/19/17 17:20 17:20 06:45 WBC 8.1 RBC 3.08 L Hgb 8.8 L D Hct 27.0 L MCV 87.7 MCH 28.6 MCHC 32.6 RDW 12.7 Plt Count 287 MPV 8.0 Neutrophils % 62.9 Lymphocytes % 13.9 D Monocytes % 11.1 H Eosinophils % 11.9 H Basophils % 0.2 ESR 44 H C-Reactive Protein 4.4 H 07/19/17 07/19/17 06:45 10:45 WBC 6.3 RBC 3.22 L Hgb 9.0 L Hct 28.3 L MCV 87.9 MCH 27.8 MCHC 31.7 L RDW 13.0 Plt Count 255 MPV 7.8 Neutrophils % 59.6 Lymphocytes % 15.6 Monocytes % 10.5 H Eosinophils % 14.1 H Basophils % 0.2 ESR C-Reactive Protein 3.8 H Active Medications Generic Name Dose Route Start Last Admin Trade Name Freq PRN Reason Stop Dose Admin Bacitracin 1 applic 07/14/17 12:45 07/19/17 11:24 Bacitracin - TP Not Given DAILY [facility] Clopidogrel Bisulfate 75 mg 07/14/17 12:45 07/19/17 11:39 Plavix - PO 75 mg DAILY [facility] Administration Fentanyl 50 mcg 07/14/17 12:54 Sublimaze Injection - IVPUSH [id number] PRN PAIN-PACU ORDER X 4 DOSES ONLY Fentanyl 50 mcg 07/19/17 08:49 Sublimaze Injection - IVPUSH [id number] PRN PAIN-PACU ORDER X 4 DOSES ONLY Heparin Sodium (Porcine) 5,000 unit 07/14/17 14:00 07/19/17 06:33 Heparin - SQ Not Given TID [facility] Piperacillin Sod/Tazobactam 100 mls @ 200 mls/hr 07/14/17 18:00 07/19/17 11: 27 Sod 3.375 gm/ Dextrose IVPB Not Given Q8H-IV [facility] Protocol Lactated Ringer's 1,000 mls @ 125 mls/hr 07/19/17 09:00 07/19/17 11:24 Lactated Ringers Solution IV Not Given ASDIR [facility] Metoprolol Succinate 50 mg 07/15/17 10:00 07/19/17 11:39 Toprol Xl - PO 50 mg DAILY [facility] Administration Ondansetron HCl 4 mg 07/19/17 08:49 Zofran Injection IVPUSH Q6H PRN NAUSEA AND/OR VOMITING Oxycodone HCl 5 mg 07/19/17 08:49 Roxicodone - PO 07/20/17 08:48 Q4H PRN Pain Level > 4 Tramadol HCl 50 mg 07/14/17 13:09 07/18/17 20:55 Ultram - PO 50 mg Q6H PRN Administration PAIN Zinc Acetate/Diphenhydramine 1 applic 07/15/17 17:45 07/19/17 12:35 Benadryl 2% Cream TP Not Given DAILY [facility] Imaging 07/13 MRI right toe: no osteo; no abscess; +cellulitis ASSESSMENT/PLAN 76 year-old female with PMH of HTN and PAD who presented to the ED with possible gangrene of the right toe Cellulitis right third toe --s/p debridement of bone and soft tissue, and biopsy 07/19 --blood cultures negative to date --toe wound culture polymicrobial --continue Zosyn (day 7) Peripheral arterial disease --continue Plavix Hypertension --resume home lisinopril and HCTZ --continue Toprol XL MYA, resolved --Cr 1.8 on admission, today 1.0 FEN Fluids: PO intake adequate Electrolytes: replete as indicted Nutrition: diabetic low sodium DVT prophylaxis: subq heparin Physical therapy evaluation Dispo: continues to require inpatient care. Full code. Visit type - Emergency Visit Emergency Visit: Yes ED Registration Date: 07/12/17 Care time: The patient presented to the Emergency Department on the above date and was hospitalized for further evaluation of their emergent condition. - New Patient This patient is new to me today: Yes Date on this admission: 07/19/17 - Critical Care Critical Care patient: No
[2017-07-19] MEDS: oxyCODONE HCL 5 MG TABLET PO PRN ×2 (14:47→19:46)
[2017-07-19] MEDS: HYDROCHLOROTHIAZIDE 12.5 MG CAPSULE (FP) PO SCH (14:57)
[2017-07-19] MEDS: LOSARTAN POTASSIUM 50 MG TABLET (FP) PO SCH (14:57)
--- NOTE | 2017-07-19 16:26 | PN ---
Progress Note, Physician History of Present Illness: S/P debridement and bone bx R 3rd toe C/O post op foot pain No fever/ chills Tolerating antibiotics WBC WNL Wound c/s mixed organisms; BC + micrococcus contaminant - Current Medication List Current Medications: Active Medications Bacitracin (Bacitracin -) 1 applic TP DAILY [facility] Last Admin: 07/19/17 11:24 Dose: Not Given Clopidogrel Bisulfate (Plavix -) 75 mg PO DAILY [facility] Last Admin: 07/19/17 11:39 Dose: 75 mg Fentanyl (Sublimaze Injection -) 50 mcg IVPUSH [id number] PRN PRN Reason: PAIN-PACU ORDER X 4 DOSES ONLY Fentanyl (Sublimaze Injection -) 50 mcg IVPUSH [id number] PRN PRN Reason: PAIN-PACU ORDER X 4 DOSES ONLY Heparin Sodium (Porcine) (Heparin -) 5,000 unit SQ TID [facility] Last Admin: 07/19/17 14:50 Dose: 5,000 unit Hydrochlorothiazide (Hctz -) 12.5 mg PO DAILY [facility] Last Admin: 07/19/17 14:57 Dose: 12.5 mg Piperacillin Sod/Tazobactam (Sod 3.375 gm/ Dextrose) 100 mls @ 200 mls/hr IVPB Q8H-IV [facility] PRN Reason: Protocol Last Admin: 07/19/17 11:27 Dose: Not Given Lactated Ringer's (Lactated Ringers Solution) 1,000 mls @ 125 mls/hr IV ASDIR [facility] Last Admin: 07/19/17 11:24 Dose: Not Given Losartan Potassium (Cozaar -) 100 mg PO DAILY [facility] Last Admin: 07/19/17 14:57 Dose: 100 mg Metoprolol Succinate (Toprol Xl -) 50 mg PO DAILY [facility] Last Admin: 07/19/17 11:39 Dose: 50 mg Ondansetron HCl (Zofran Injection) 4 mg IVPUSH Q6H PRN PRN Reason: NAUSEA AND/OR VOMITING Oxycodone HCl (Roxicodone -) 5 mg PO Q4H PRN PRN Reason: Pain Level > 4 Stop: 07/20/17 08:48 Last Admin: 07/19/17 14:47 Dose: 5 mg Zinc Acetate/Diphenhydramine (Benadryl 2% Cream) 1 applic TP DAILY [facility] Last Admin: 07/19/17 12:35 Dose: Not Given - Objective Vital Signs: Vital Signs Temperature 98.4 F 07/19/17 14:58 Pulse Rate 85 07/19/17 14:58 Respiratory Rate 20 07/19/17 14:58 Blood Pressure 119/62 07/19/17 14:58 O2 Sat by Pulse Oximetry (%) 97 07/19/17 10:50 Constitutional: Yes: No Distress Eyes: Yes: Conjunctiva Clear Cardiovascular: Yes: Regular Rate and Rhythm, S1, S2 Respiratory: Yes: CTA Bilaterally Gastrointestinal: Yes: Normal Bowel Sounds, Soft. No: Tenderness Extremities: Yes: Other (post op dressing in place) Labs: CBC, BMP 07/19/17 10:45 07/18/17 07:00 INR, PTT INR 1.12 (0.82-1.09) 07/12/17 16:20 Assessment/Plan Infected necrotic R 3rd toe ulcer S/P debridement/ bone bx PVD + BC, contaminant Continue zosyn Local wound care
[2017-07-19] MEDS ORDERED: MORPHINE SULFATE 10 MG/1 ML *VIAL IVPUSH ONE (17:00)
[2017-07-20] MEDS: oxyCODONE HCL 5 MG TABLET PO PRN (01:43)
[2017-07-20] MEDS: PIPERACILLIN/TAZOB 3.375 GM 3.375 GM in DEXTROSE 5%-WATER - 100 ML IVPB SCH ×3 (01:44→17:50)
[2017-07-20 02:31] LABS: BASO % 0.3 % (0-2.0); EOS % 14.8 % (0-4.5); HEMATOCRIT 26.3 % (32.4-45.2); HEMOGLOBIN 8.6 GM/dL (10.7-15.3); LYMPH % 20.6 % (8-40); MCH 28.9 pg (25.7-33.7); MCHC 32.8 g/dl (32.0-36.0); MEAN CELL VOLUME 88.1 fl (80-96); MEAN PLT VOLUME 8.2 fl (7.5-11.1); MONO % 11.2 % (3.8-10.2); NEUT % 53.1 % (42.8-82.8); PLATELET COUNT 264 K/MM3 (134-434); RBC 2.99 M/mm3 (3.60-5.2); RDW 12.7 % (11.6-15.6); WHITE BLOOD COUNT 6.9 K/mm3 (4.0-10.0)
[2017-07-20 02:56] LABS: ALBUMIN 3.2 g/dl (3.4-5.0); ANION GAP 9 (8-16); BILIRUBIN,TOTAL 0.4 mg/dL (0.2-1.0); BLOOD UREA NITROGEN 9 mg/dL (7-18); CALCIUM 8.9 mg/dL (8.5-10.1); CHLORIDE 103 mmol/L (98-107); CO2 28 mmol/L (21-32); GLUCOSE,RANDOM 96 mg/dL (74-106); MAGNESIUM 1.8 mg/dL (1.8-2.4); POTASSIUM 4.4 mmol/L (3.5-5.1); SGOT/AST 29 U/L (15-37); SGPT/ALT 25 U/L (12-78); SODIUM 140 mmol/L (136-145); TOT PROT 6.5 g/dl (6.4-8.2)
[2017-07-20 02:57] LABS: ALK PHOS 66 U/L (45-117)
[2017-07-20] MEDS: HEPARIN NA (PORCINE) 5,000 UNITS/ML 1ML VIAL SQ SCH ×3 (06:28→22:17)
--- NOTE | 2017-07-20 08:49 | PN ---
Physical Exam: SUBJECTIVE: Patient seen and examined OBJECTIVE: Vital Signs Period Temp Pulse Resp BP Sys/Mcgill Pulse Ox Last 24 Hr 97.8 F-98.7 F 62-88 16-20 107-153/51-80 96-100 GENERAL: The patient is awake, alert, and fully oriented, in no acute distress. LUNGS: Breath sounds equal, clear to auscultation bilaterally, no wheezes, no crackles, no accessory muscle use. HEART: Regular rate and rhythm, S1, S2 ABDOMEN: Soft, nontender, nondistended, normoactive bowel sounds, no guarding, no rebound UPPER EXTREMITIES: 2+ pulses, warm, well-perfused, no edema. RIGHT LOWER EXTREMITY: Surgical dressing and wrapping from toes to ankle, c/d/ i. Wound not visualized. Tips of toes pink, warm, + motor +sensory NEUROLOGICAL: Cranial nerves II through XII grossly intact. Normal speech, gait not observed. Laboratory Results - last 24 hr 07/19/17 07/19/17 07/19/17 06:45 06:45 10:45 WBC 6.3 RBC 3.22 L Hgb 9.0 L Hct 28.3 L MCV 87.9 MCH 27.8 MCHC 31.7 L RDW 13.0 Plt Count 255 MPV 7.8 Neutrophils % 59.6 Lymphocytes % 15.6 Monocytes % 10.5 H Eosinophils % 14.1 H Basophils % 0.2 ESR 44 H Sodium Potassium Chloride Carbon Dioxide Anion Gap BUN Creatinine Creat Clearance w eGFR Random Glucose Calcium Magnesium Total Bilirubin AST ALT Alkaline Phosphatase C-Reactive Protein 3.8 H Total Protein Albumin 07/20/17 07/20/17 02:15 02:15 WBC 6.9 RBC 2.99 L Hgb 8.6 L Hct 26.3 L MCV 88.1 MCH 28.9 MCHC 32.8 RDW 12.7 Plt Count 264 MPV 8.2 Neutrophils % 53.1 Lymphocytes % 20.6 D Monocytes % 11.2 H Eosinophils % 14.8 H Basophils % 0.3 ESR Sodium 140 Potassium 4.4 Chloride 103 Carbon Dioxide 28 Anion Gap 9 BUN 9 Creatinine 1.0 Creat Clearance w eGFR 53.76 Random Glucose 96 Calcium 8.9 Magnesium 1.8 Total Bilirubin 0.4 D AST 29 ALT 25 Alkaline Phosphatase 66 C-Reactive Protein Total Protein 6.5 Albumin 3.2 L Active Medications Generic Name Dose Route Start Last Admin Trade Name Freq PRN Reason Stop Dose Admin Bacitracin 1 applic 07/14/17 12:45 07/19/17 11:24 Bacitracin - TP Not Given DAILY [facility] Clopidogrel Bisulfate 75 mg 07/14/17 12:45 07/19/17 11:39 Plavix - PO 75 mg DAILY [facility] Administration Fentanyl 50 mcg 07/14/17 12:54 Sublimaze Injection - IVPUSH [id number] PRN PAIN-PACU ORDER X 4 DOSES ONLY Fentanyl 50 mcg 07/19/17 08:49 Sublimaze Injection - IVPUSH [id number] PRN PAIN-PACU ORDER X 4 DOSES ONLY Heparin Sodium (Porcine) 5,000 unit 07/14/17 14:00 07/20/17 06:28 Heparin - SQ 5,000 unit TID [facility] Administration Hydrochlorothiazide 12.5 mg 07/19/17 14:30 07/19/17 14:57 Hctz - PO 12.5 mg DAILY [facility] Administration Piperacillin Sod/Tazobactam 100 mls @ 200 mls/hr 07/14/17 18:00 07/20/17 01: 44 Sod 3.375 gm/ Dextrose IVPB 200 mls/hr Q8H-IV [facility] Administration Protocol Lactated Ringer's 1,000 mls @ 125 mls/hr 07/19/17 09:00 07/19/17 11:24 Lactated Ringers Solution IV Not Given ASDIR [facility] Losartan Potassium 100 mg 07/19/17 14:30 07/19/17 14:57 Cozaar - PO 100 mg DAILY [facility] Administration Metoprolol Succinate 50 mg 07/15/17 10:00 07/19/17 11:39 Toprol Xl - PO 50 mg DAILY [facility] Administration Ondansetron HCl 4 mg 07/19/17 08:49 Zofran Injection IVPUSH Q6H PRN NAUSEA AND/OR VOMITING Oxycodone HCl 5 mg 07/19/17 08:49 07/20/17 01:43 Roxicodone - PO 07/20/17 08:48 5 mg Q4H PRN Administration Pain Level > 4 Zinc Acetate/Diphenhydramine 1 applic 07/15/17 17:45 07/19/17 12:35 Benadryl 2% Cream TP Not Given DAILY [facility] Imaging 07/13 MRI right toe: no osteo; no abscess; +cellulitis ASSESSMENT/PLAN 76 year-old female with PMH of HTN and PAD who presented to the ED with possible gangrene of the right toe Cellulitis right third toe --s/p debridement of bone and soft tissue, and biopsy 07/19 --blood cultures negative to date --toe wound culture polymicrobial --continue Zosyn (day 8) Peripheral arterial disease --continue Plavix Hypertension --resume home lisinopril and HCTZ --continue Toprol XL MYA, resolved --Cr 1.8 on admission, today 1.0 FEN Fluids: PO intake adequate Electrolytes: replete as indicted Nutrition: diabetic low sodium DVT prophylaxis: subq heparin Physical therapy evaluation Dispo: continues to require inpatient care. Discharge planning depends results of bone biopsy and whether patient will need long-term IV therapy. Discussed with yard warehouse worker Randa Leach. She will contact patient's daughter and research possible facilities. Full code. Visit type - Emergency Visit Emergency Visit: Yes ED Registration Date: 07/12/17 Care time: The patient presented to the Emergency Department on the above date and was hospitalized for further evaluation of their emergent condition. - New Patient This patient is new to me today: No - Critical Care Critical Care patient: No
[2017-07-20] MEDS ORDERED: PT OWN MED DRAWER 7, Y5N ONE ×4 (09:05→17:40)
[2017-07-20] MEDS: HYDROCHLOROTHIAZIDE 12.5 MG CAPSULE (FP) PO SCH (10:33)
[2017-07-20] MEDS: CLOPIDOGREL BISULFATE 75 MG TABLET (FP) PO SCH (10:33)
[2017-07-20] MEDS: LOSARTAN POTASSIUM 50 MG TABLET (FP) PO SCH (10:33)
[2017-07-20] MEDS: BACITRACIN 15 GM TUBE TOPICAL OINTMENT TP SCH (12:39)
--- NOTE | 2017-07-20 15:21 | PATH ---
Surgical Pathology Report Patient Name: TREMAINE SPARKS [facility]. Rec. #: [id number] /Age/Gender: 1940 (Age: 76) / F Account: [id number] Location: [address] [place] [address] MED/[facility] Taken: 07/19/2017 Received: 07/19/2017 Reported: 07/20/2017 Physicians: MICHAEL Muñiz AGACNP Specimen(s) Received A: GANGRENOUS OSTEOMYELITIS 3RD TOE B: PROXIMAL BONE 3RD TOE Clinical History None Provided Final Diagnosis A. 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 B. PROXIMAL BONE, THIRD TOE, EXCISION: BONE WITH FOCAL MARROW FIBROSIS. NO EVIDENCE OF ACUTE OSTEOMYELITIS. FRAGMENT OF CARTILAGE AND SCANT CONNECTIVE TISSUE. Electronically Signed Елена Glasgow M.D. Gross Description A. Received in formalin labeled "gangrene osteomyelitis third toe," is a 2.0 x 1.7 x 1.6 cm toe amputation specimen. The entire epidermal surface displays a jordan-green, gangrenous lesion which appears to involve the skin and soft tissue margin. The lesion also appears to involve the underlying bone. Separately received within the same container is a 1.0 x 0.9 x 0.9 cm undesignated portion of bone. Wheel Fitter sections are submitted in 3 cassettes as follows: 1-lesion with underlying bone, following decalcification; 2-skin, soft tissue and bone margin, following decalcification; 3-entirely submitted, trisected separately received portion of bone, following decalcification. B. Received in formalin labeled "proximal bone third toe," is a 1.7 x 1.1 x 1.1 cm felipe, irregular portion of bone. The specimen displays smooth articular cartilage at one end. The opposing end displays smooth trabecular bone. Wheel Fitter sections are submitted in 2 cassettes as follows: 1-bone margin with articular cartilage, following decalcification; 2-bone margin with trabecular bone, following decalcification. 07/19/201707/19/2017
[2017-07-20] MEDS: LACTATED RINGERS SOLUTION 1,000 ML IV SCH (17:02)
[2017-07-20] MEDS: traMADol HCL 50 MG TABLET PO PRN (17:49)
[2017-07-21] MEDS: traMADol HCL 50 MG TABLET PO PRN ×2 (00:47→06:39)
[2017-07-21] MEDS ORDERED: PT OWN MED DRAWER 7, Y5N ONE ×2 (02:16→08:52)
[2017-07-21] MEDS: PIPERACILLIN/TAZOB 3.375 GM 3.375 GM in DEXTROSE 5%-WATER - 100 ML IVPB SCH ×2 (02:39→10:09)
[2017-07-21] MEDS ORDERED: traMADol HCL 50 MG TABLET PO ONE (05:12)
[2017-07-21] MEDS: HEPARIN NA (PORCINE) 5,000 UNITS/ML 1ML VIAL SQ SCH ×2 (06:40→14:52)
[2017-07-21 09:35] VITALS: TEMP 97.9
--- NOTE | 2017-07-21 10:07 | PN ---
Progress Note (short form) - Note Progress Note: Patient seen in bed. s/p foot sx 2 days. VSS. Tmax 99.1 wbc=6.9, packing pulled, -mal odor, +sutures intact, -cellulitis, -drainage, normal post op packing pulled. betadine dressing applied. can be dc from Podiatry standpoint. No dressing change till sees me in clinic. Antibiotics as per ID. Will follow till dc. CBC with diff, esr before dc. Problem List - Problems (1) Gangrenous toe Code(s): I96 - GANGRENE, NOT ELSEWHERE CLASSIFIED
[2017-07-21] MEDS: BACITRACIN 15 GM TUBE TOPICAL OINTMENT TP SCH (10:08)
[2017-07-21] MEDS: CLOPIDOGREL BISULFATE 75 MG TABLET (FP) PO SCH (10:09)
[2017-07-21] MEDS: LOSARTAN POTASSIUM 50 MG TABLET (FP) PO SCH (10:10)
[2017-07-21] MEDS: HYDROCHLOROTHIAZIDE 12.5 MG CAPSULE (FP) PO SCH (10:10)
[2017-07-21 10:59] LABS: BASO % 0.4 % (0-2.0); HEMATOCRIT 29.6 % (32.4-45.2); HEMOGLOBIN 9.5 GM/dL (10.7-15.3); LYMPH % 14.6 % (8-40); MCH 28.1 pg (25.7-33.7); MEAN CELL VOLUME 87.9 fl (80-96); MEAN PLT VOLUME 7.6 fl (7.5-11.1); PLATELET COUNT 323 K/MM3 (134-434); RBC 3.37 M/mm3 (3.60-5.2); RDW 13.2 % (11.6-15.6); WHITE BLOOD COUNT 9.1 K/mm3 (4.0-10.0)
--- NOTE | 2017-07-21 12:17 | PN ---
Progress Note, Physician History of Present Illness: No c/o post op foot pain No fever/ chills Tolerating antibiotics WBC WNL Wound c/s mixed organisms; BC + micrococcus contaminant - Current Medication List Current Medications: Active Medications Bacitracin (Bacitracin -) 1 applic TP DAILY [facility] Last Admin: 07/21/17 10:08 Dose: Not Given Clopidogrel Bisulfate (Plavix -) 75 mg PO DAILY [facility] Last Admin: 07/21/17 10:09 Dose: 75 mg Heparin Sodium (Porcine) (Heparin -) 5,000 unit SQ TID [facility] Last Admin: 07/21/17 06:40 Dose: 5,000 unit Hydrochlorothiazide (Hctz -) 12.5 mg PO DAILY [facility] Last Admin: 07/21/17 10:10 Dose: 12.5 mg Piperacillin Sod/Tazobactam (Sod 3.375 gm/ Dextrose) 100 mls @ 200 mls/hr IVPB Q8H-IV [facility] PRN Reason: Protocol Last Admin: 07/21/17 10:09 Dose: 200 mls/hr Losartan Potassium (Cozaar -) 100 mg PO DAILY [facility] Last Admin: 07/21/17 10:10 Dose: 100 mg Metoprolol Succinate (Toprol Xl -) 50 mg PO DAILY [facility] Last Admin: 07/21/17 10:10 Dose: 50 mg Ondansetron HCl (Zofran Injection) 4 mg IVPUSH Q6H PRN PRN Reason: NAUSEA AND/OR VOMITING Tramadol HCl (Ultram -) 50 mg PO Q6H PRN PRN Reason: PAIN LEVEL 6-10 Last Admin: 07/21/17 06:39 Dose: 50 mg Zinc Acetate/Diphenhydramine (Benadryl 2% Cream) 1 applic TP DAILY [facility] Last Admin: 07/21/17 10:09 Dose: 1 applic - Objective Vital Signs: Vital Signs Temperature 97.9 F 07/21/17 09:35 Pulse Rate 92 H 07/21/17 09:35 Respiratory Rate 18 07/21/17 09:35 Blood Pressure 149/78 07/21/17 09:35 O2 Sat by Pulse Oximetry (%) 100 07/21/17 10:03 Constitutional: Yes: No Distress Eyes: Yes: Conjunctiva Clear Cardiovascular: Yes: Regular Rate and Rhythm, S1, S2 Respiratory: Yes: CTA Bilaterally Gastrointestinal: Yes: Normal Bowel Sounds, Soft. No: Tenderness Extremities: Yes: Other (R 3rd toe amputation site with sutures in place. No erythema/ drainage.) Labs: CBC, BMP 07/21/17 10:41 07/20/17 02:15 INR, PTT INR 1.12 (0.82-1.09) 07/12/17 16:20 Assessment/Plan Infected necrotic R 3rd toe ulcer S/P amputation PVD + BC, contaminant D/C zosyn Levaquin 250mg po qd x7d
--- NOTE | 2017-07-21 14:09 | DS ---
Physical Exam: SUBJECTIVE: Patient seen and examined OBJECTIVE: Vital Signs Period Temp Pulse Resp BP Sys/Mcgill Pulse Ox Last 24 Hr 97.7 F-99.6 F 89-98 18-20 125-150/62-78 98-100 PHYSICAL EXAM GENERAL: The patient is awake, alert, and fully oriented, in no acute distress. LUNGS: Breath sounds equal, clear to auscultation bilaterally, no wheezes, no crackles, no accessory muscle use. HEART: Regular rate and rhythm, S1, S2 ABDOMEN: Soft, nontender, nondistended, normoactive bowel sounds, no guarding, no rebound UPPER EXTREMITIES: 2+ pulses, warm, well-perfused, no edema. RIGHT LOWER EXTREMITY: Surgical dressing and wrapping from toes to ankle, c/d/ i. Wound not visualized. Tips of toes pink, warm, + motor +sensory NEUROLOGICAL: Cranial nerves II through XII grossly intact. Normal speech, gait not observed. LABS Laboratory Results - last 24 hr 07/21/17 07/21/17 10:41 10:41 WBC 9.1 D RBC 3.37 L Hgb 9.5 L D Hct 29.6 L MCV 87.9 MCH 28.1 MCHC 32.0 RDW 13.2 Plt Count 323 D MPV 7.6 Neutrophils % 64.0 D Lymphocytes % 14.6 D Monocytes % 9.0 Eosinophils % 12.0 H Basophils % 0.4 ESR 61 H HOSPITAL COURSE: Date of Admission:07/12/17 Date of Discharge: 07/21/17 Pre hospital course This is a 76 year old female with a past medical history significant for PAD who presented to the ED from wound clinic for possible gangrene of right toe. Pt states that her toe was run over by a wheelchair a couple months ago and her doctor has been giving her pain medication without relief. She was also treated with a course of antibiotics and was started on terbinafine a couple weeks ago. ER course (1) WBC 6.8 (2) BUN 46, Cr 1.8 Hospital course by problem list Imaging Cellulitis right third toe --s/p debridement of bone and soft tissue, and biopsy 07/19 --blood cultures negative to date --toe wound culture polymicrobial --bone biopsy: acute osteo, clear margins --completed Zosyn x 9 days --discharged with levofloxacin PO 250mg daily x 7 days Peripheral arterial disease --continued Plavix Hypertension --continued lisinopril and HCTZ --continued Toprol XL MYA, resolved --Cr 1.8 on admission, now 1.0 Dispo: Patient is being discharged to home with visiting nurse services. The surgical dressing should NOT be changed until she follows up at the Wound Clinic on Wednesday, July 26, 2017 at 2:00pm. Patient needs home physical therapy services. Minutes to complete discharge: 35 Discharge Summary Reason For Visit: GANGRENE OF TOE Current Active Problems Gangrenous toe (Acute) Condition: Improved - Instructions Diet, Activity, Other Instructions: Do NOT change your dressing until you see the foot doctor in the wound clinic next Tuesday. Your appointment at the wound clinic is for Wednesday, July 26, 2017 at 2: 00pm. A prescription has been sent to your pharmacy for levofloxacin which is an antibiotic. Take this medication as directed and be sure to finish all the medication. Return to the emergency department for any new or worsening symptoms. Referrals: Hal Gold [Primary Care Provider] - Naman Sanchez DPM [Staff Physician] - 07/26/17 9:00 am Disposition: HOME - Home Medications Comprehensive Discharge Medication List: Ambulatory Orders Furosemide 20 mg PO DAILY 07/12/17 Losartan/Hydrochlorothiazide [Losartan-Hctz 100-12.5 mg Tab] 1 tab PO DAILY Metoprolol Succinate 50 mg PO DAILY 07/12/17 Terbinafine HCl 250 mg PO DAILY 07/12/17 Tramadol HCl 50 mg PO DAILY PRN 07/12/17 Levofloxacin [Levaquin] 250 mg PO DAILY #7 tablet 07/21/17 This patient is new to me today: No Emergency Visit: Yes ED Registration Date: 07/12/17 Care time: The patient presented to the Emergency Department on the above date and was hospitalized for further evaluation of their emergent condition. Critical Care patient: No - Discharge Referral Referred to [facility] No
[2017-07-21 14:55] VITALS: BP 120/69; PULSE 85
--- NOTE | 2017-07-27 06:13 | OP ---
DATE OF OPERATION: 07/14/2017 PREOPERATIVE DIAGNOSIS: Right toe gangrene. POSTOPERATIVE DIAGNOSIS: Right toe gangrene. PROCEDURE: Aortogram, right lower extremity angiogram, superficial femoral artery atherectomy with drug-coated balloon angioplasty. FINDINGS: Right SFA with 95% stenosis in 2 areas. Patient only has peroneal artery runoff, collateral circulation in foot. Patient should get local wound care afterwards. SURGEON: Dennis Arcos MD ANESTHESIA: Fractional. BLOOD LOSS: 50 mL. INDICATIONS: The patient is a 76-year-old female who complains of right toe gangrene after she had trauma to that foot when a wheelchair ran over her foot. She is an undiagnosed diabetic recently found to have a hemoglobin A1c of 6.8, which is elevated, and for the last month or 2, her toe has been completely discolored and becoming gangrenous after the trauma. She had a preoperative ultrasound performed showing SFA disease in the mid to distal SFA, 2 areas that were greater than 90%. It was decided that she would need a diagnostic angiogram in order to bring more blood flow down to the foot. Patient was consented for the procedure understanding all risks, benefits, and alternatives and brought to the operating room. PROCEDURE IN DETAIL: Once in the operating room, she was placed on the operating table in the supine manner. The area of the left and right groin was prepped and draped in the sterile surgical manner. We then injected 10 mL of lidocaine 1% in the area of the left common femoral artery. We then went ahead and used our micropuncture needle and punctured the left common femoral artery. A micropuncture wire inserted. Micropuncture sheath was inserted, and a 0.035 floppy guidewire was inserted into the aorta. We then placed a 5-Belarusian sheath. We then brought our wire under fluoroscopy into the aorta followed by a Merit catheter. We then shot an aortogram of the aorta and the iliac arteries showing that the aorta and the iliac arteries were without any disease. We then placed our 0.035 stiff guidewire up to the right common femoral artery followed by our Merit catheter. We then shot an angiogram of the right lower extremity showing that the common femoral artery, the profunda, and proximal SFA were patent. There were 2 areas of severe stenosis of 95% in the mid to distal SFA. Popliteal artery was patent. Patient had 1-vessel runoff, which was peroneal artery going into the foot, which went ahead and fed the DP and the PT. At this point, we placed a 0.035 stiff guidewire into the SFA, removed our Merit catheter, placed a 6 x 45 crossover sheath. Then, 5000 units of IV heparin were administered to the patient. We then went ahead and placed a Quick-Cross catheter, and we were able to selectively cross our 2 areas of SFA stenosis, and the wire was placed in the peroneal artery. We then went ahead and used a Bread Orbital Atherectomy device and performed atherectomy of the 2 areas of severe stenosis. We then went ahead and used a 6 x 8 drug-coated balloon and performed angioplasty using a Lutonix balloon of the SFA. Once completed, we shot an angiogram of the right lower extremity showing that the SFA was now patent. There were no areas of dissection, and there was good brisk flow into the peroneal artery into the foot. At this point, no more intervention was needed. We brought our sheath up and over, and a StarClose device was successfully deployed in the left common femoral artery. Pressure was held for 5 minutes. After there was no bleeding, the area was wet and dried, and Dermabond was placed. The patient tolerated the procedure with no complications. Patient transferred to PACU in stable condition. DENNIS ARCOS DO [id number]
== END 2017-07-21 15:23 | disposition home or self-care (01) | DRG 271 ==
LOC: JER 14:25 → JERBED 17:20 → J5S 21:41
PROVIDERS: ADMIT Internal Medicine; ATTEND Nurse Practitioner Acute Care
PROC: 047K3Z1 Dilation of Right Femoral Artery using Drug-Coated Balloon, Percutaneous Approach (ICD-10-PCS; 2017-07-14)
PROC: B40FYZZ Plain Radiography of Right Lower Extremity Arteries using Other Contrast (ICD-10-PCS; 2017-07-14)
PROC: 04CK3ZZ Extirpation of Matter from Right Femoral Artery, Percutaneous Approach (ICD-10-PCS; principal; 2017-07-14 09:00)
PROC: 0QBQ0ZX Excision of Right Toe Phalanx, Open Approach, Diagnostic (ICD-10-PCS; 2017-07-19)
PROC: 0Y6T0Z1 Detachment at Right 3rd Toe, High, Open Approach (ICD-10-PCS; 2017-07-19)
DX: I70.261 Atherosclerosis of native arteries of extremities with gangrene, right leg (principal); N17.9 Acute kidney failure, unspecified; L97.518 Non-pressure chronic ulcer of other part of right foot with other specified severity; M86.172 Other acute osteomyelitis, left ankle and foot; I10 Essential (primary) hypertension; L03.031 Cellulitis of right toe
CPT/HCPCS: 36415; 73630-TC-RT-FY; 73660-TC-FY; 73721-RT-TC; 76000-TC-FY; 80048; 80053; 81003; 81015; 83036; 83735; 84100; 85025; 85027; 85610; 85651; 86140; 86850; 86900; 86901; 87040; 87070; 87186; 87205; 88304-TC; 88305-TC; 88311-TC; 93005; 93010; 94760; 97116-GP; 97161-GP; 99281-25; G0463-25; J1644

== ENCOUNTER 2017-11-29 16:12 | Inpatient (IN) | payer OTHER ==
--- NOTE | 2017-11-29 16:23 | PDOC ---
Rapid Medical Evaluation Time Seen by Provider: 11/29/17 16:15 Medical Evaluation: Allergies Allergy/AdvReac Type Severity Reaction Status Date / Time No Known Allergies Allergy Verified 07/26/17 15:07 11/29/17 16:15 Patient c/o: preop for angiogram. sent by wound care due to infection to rt foot , procedure to be performed by guevara on the 12/01 Patient on brief exam: vss, bandage not removed Pateint ordered for: preop labs Patient to proceed to the ED Discharge Disposition - Diagnosis Wound infection - Referrals - Patient Instructions - Post Discharge Activity
[2017-11-29 17:30] LABS: BASO % 0.6 % (0-2.0); EOS % 5.4 % (0-4.5); HEMATOCRIT 31.4 % (32.4-45.2); HEMOGLOBIN 10.4 GM/dL (10.7-15.3); LYMPH % 24.4 % (8-40); MCH 28.9 pg (25.7-33.7); MCHC 33.3 g/dl (32.0-36.0); MEAN CELL VOLUME 86.7 fl (80-96); MEAN PLT VOLUME 7.5 fl (7.5-11.1); MONO % 10.4 % (3.8-10.2); NEUT % 59.2 % (42.8-82.8); PLATELET COUNT 311 K/MM3 (134-434); RBC 3.62 M/mm3 (3.60-5.2); RDW 12.8 % (11.6-15.6); WHITE BLOOD COUNT 4.2 K/mm3 (4.0-10.0)
[2017-11-29 17:38] LABS: URINE APPEARANCE CLEAR; URINE BILIRUBIN NEGATIVE (<2.0 mg/dL); URINE COLOR STRAW; URINE GLUCOSE (UA) NEGATIVE (NEGATIVE); URINE KETONE NEGATIVE (NEGATIVE); URINE LEUK ESTERASE NEGATIVE (NEGATIVE); URINE NITRITE NEGATIVE (NEGATIVE); URINE PROTEIN NEGATIVE (NEGATIVE); URINE UROBILINOGEN NEGATIVE mg/dL (0.2-1.0)
[2017-11-29 17:46] LABS: INR 1.07 (0.82-1.09); PROTHROMBIN TIME (PATIENT) 12.1 SEC (9.7-13.0)
[2017-11-29 18:04] LABS: ALBUMIN 3.8 g/dl (3.4-5.0); ALK PHOS 106 U/L (45-117); ANION GAP 11 (8-16); BILIRUBIN,TOTAL 0.3 mg/dL (0.2-1.0); BLOOD UREA NITROGEN 34 mg/dL (7-18); CALCIUM 8.9 mg/dL (8.5-10.1); CHLORIDE 92 mmol/L (98-107); CO2 27 mmol/L (21-32); CREATININE 1.1 mg/dL (0.55-1.02); GLUCOSE,RANDOM 128 mg/dL (74-106); SGOT/AST 17 U/L (15-37); SGPT/ALT 18 U/L (12-78); SODIUM 130 mmol/L (136-145); TOT PROT 7.4 g/dl (6.4-8.2)
--- NOTE | 2017-11-29 18:07 | PDOC ---
History of Present Illness - General Chief Complaint: Revisit,Wound Recheck Stated Complaint: WOUND PAIN Time Seen by Provider: 11/29/17 16:15 - History of Present Illness Initial Comments: 11/29/17 18:33 Ms. Anton is a 77 yo female w/ pmh of PMH, HTN, PAD who presents from wound clinic for suspected inflammation of toe. Patient is scheduled for revascularization with Dr. Gold on however wound clinic was worried she may need IV antibiotics today for acute treatment. The patient denies chest pain, shortness of breath, headache and dizziness. Denies fever, chills, nausea, vomit, diarrhea and constipation. Denies dysuria, frequency, urgency and hematuria. Allergies: NKDA Vascular: Hal Gold Preparer Samples And Repairs: Naman Sanchez Past History - Past Medical History Allergies/Adverse Reactions: Allergies Allergy/AdvReac Type Severity Reaction Status Date / Time No Known Allergies Allergy Verified 11/29/17 16:17 Home Medications: Ambulatory Orders Furosemide 20 mg PO DAILY 07/12/17 Losartan/Hydrochlorothiazide [Losartan-Hctz 100-12.5 mg Tab] 1 tab PO DAILY Metoprolol Succinate 50 mg PO DAILY 07/12/17 Terbinafine HCl 250 mg PO DAILY 07/12/17 Tramadol HCl 50 mg PO DAILY PRN 07/12/17 Aspirin [ASA -] 1 tab PO DAILY 09/20/17 Mupirocin Ointment [Bactroban 2% Ointment -] 1 applic TP DAILY #1 applic COPD: No DVT: No Diabetes: Yes HTN: Yes - Surgical History Orthopedic Surgery: Yes (amputation r 3rd toe) - Immunization History Immunization Up to Date: Yes - Suicide/Smoking/Psychosocial Hx Smoking History: Never smoked Have you smoked in the past 12 months: No Hx Alcohol Use: No Drug/Substance Use Hx: No Substance Use Type: None Review of Systems - Review of Systems Comments:: 11/29/17 18:39 GENERAL/CONSTITUTIONAL: No fever or chills. No weakness. HEAD, EYES, EARS, NOSE AND THROAT: No change in vision. No ear pain or discharge. No sore throat. CARDIOVASCULAR: No chest pain or shortness of breath RESPIRATORY: No cough, wheezing, or hemoptysis. GASTROINTESTINAL: No nausea, vomiting, diarrhea or constipation. GENITOURINARY: No dysuria, frequency, or change in urination. MUSCULOSKELETAL: No joint or muscle swelling or pain. No neck or back pain. SKIN: No rash NEUROLOGIC: No headache, vertigo, loss of consciousness, or change in strength/ sensation. ENDOCRINE: No increased thirst. No abnormal weight change HEMATOLOGIC/LYMPHATIC: No anemia, easy bleeding, or history of blood clots. ALLERGIC/IMMUNOLOGIC: No hives or skin allergy. *Physical Exam - Vital Signs Last Vital Signs Temp Pulse Resp BP Pulse Ox 97.7 F 92 H 18 158/96 100 11/29/17 16:17 11/29/17 16:17 11/29/17 16:17 11/29/17 16:17 11/29/17 16:17 - Physical Exam Comments: 11/29/17 18:39 GENERAL: Awake, alert, and fully oriented, in no acute distress HEAD: No signs of trauma, normocephalic, atraumatic EYES: PERRLA, EOMI, sclera anicteric, conjunctiva clear ENT: Auricles normal inspection, hearing grossly normal, nares patent, oropharynx clear without exudates. Moist mucosa NECK: Normal ROM, supple, no lymphadenopathy, JVD, or masses LUNGS: No distress, speaks full sentences, clear to auscultation bilaterally HEART: Regular rate and rhythm, normal S1 and S2, no murmurs, rubs or gallops, peripheral pulses normal and equal bilaterally. ABDOMEN: Soft, nontender, normoactive bowel sounds. No guarding, no rebound. No masses EXTREMITIES: +Right foot significant for amputation of 3rd toe. Site now raw and erythematous with pus extruding. Otherwise normal inspection, Normal range of motion, no edema. No clubbing or cyanosis. NEUROLOGICAL: Cranial nerves II through XII grossly intact. Normal speech, normal gait, no focal sensorimotor deficits SKIN: Warm, Dry, normal turgor, no rashes or lesions noted. ED Treatment Course - LABORATORY CBC & Chemistry Diagram: 11/29/17 17:02 11/29/17 17:02 - ADDITIONAL ORDERS Additional order review: Laboratory Results 11/29/17 11/29/17 17:16 17:02 PT with INR 12.10 INR 1.07 Urine Color Straw Urine Appearance Clear Urine pH 5.[address] 1.011 Urine Protein Negative Urine Glucose (UA) Negative Urine Ketones Negative Urine Blood Negative Urine Nitrite Negative Urine Bilirubin Negative Urine Urobilinogen Negative Ur Leukocyte Esterase Negative 11/29/17 17:02 RBC 3.62 MCV 86.7 MCHC 33.3 RDW 12.8 MPV 7.5 Neutrophils % 59.2 Lymphocytes % 24.4 D Monocytes % 10.4 H Eosinophils % 5.4 H Basophils % 0.6 Medical Decision Making - Medical Decision Making 11/29/17 19:54 Ms. Anton is a 77 yo female w/ pmh as described who presents for evaluation from wound clinic of foot infection. Patient also scheduled for revascularization of left leg on with Dr. Gold. Blood cultures sent for evaluation. Vanc / Zosyn started for treatment. Admitting patient for further evaluation. *DC/Admit/Observation/Transfer Diagnosis at time of Disposition: Wound infection - Discharge Dispostion Decision to Admit order: Yes - Referrals - Patient Instructions - Post Discharge Activity
--- NOTE | 2017-11-29 18:38 | PDOC ---
Attending Attestation - Resident Resident Name: NakulkayleighmarelyOtisMisael - ED Attending Attestation I have performed the following: I have examined & evaluated the patient, The case was reviewed & discussed with the resident, I agree w/resident's findings & plan, Exceptions are as noted - HPI HPI: 11/29/17 18:36 77 yo female with history of PAD [facility] and was sent here today for eval of infected toe -she is slated for revascularization of her left leg on - Physicial Exam PE: 11/29/17 19:36 77 yo female p/w swollen left foot. 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
[2017-11-29] MEDS ORDERED: PIPERACILLIN/TAZOB 3.375 GM 3.375 GM in DEXTROSE 5%-WATER - 50 ML IVPB ONE (19:50)
[2017-11-29] MEDS ORDERED: VANCOMYCIN 1,000 MG in DEXTROSE 5%-WATER - 250 ML IVPB ONE (19:50)
[2017-11-29] MEDS ORDERED: ACETAMINOPHEN 500 MG TABLET (FP) PO ONE (20:35)
[2017-11-29] MEDS ORDERED: ACETAMINOPHEN 325 MG TABLET (FP) ONE (20:35)
[2017-11-29] MEDS ORDERED: VANCOMYCIN 1 GRAM (PRE-DOCKED) 1,000 MG/250 ML BAG IVPB ONE (20:35)
[2017-11-29] MEDS ORDERED: PIPERACILLIN/TAZOB 3.375 GM 3.375 GM/50 ML BAG IVPB ONE (20:36)
--- NOTE | 2017-11-29 22:06 | HP ---
CHIEF COMPLAINT: Possible R toe infection PCP: Dr. Gold HISTORY OF PRESENT ILLNESS: 77 yo woman with pmh of PAD, HTN, chronic LE edema who presents from podiatry clinic due to purulent drainage and erythema of chronic 3rd digit wound from prior resection. Pt was seen in clinic by Dr. Sanchez, noted to have erythema and purulent drainage from chronic 3rd digit wound site from prior resection of gangrenous toe 5 months ago. Pt sent to ED for IV abx, as will be receiving LE arterial stenting revascularization procedure with Dr. Gold on 12/01. Pt endorses occasional mild pain in R forefoot, but denies numbness/tingling in the area. No recent sick contacts or travel. Ambulates freely with surgical boot on R foot. Pt receives hyperbaric tx of R chronic wound every day at [facility] and follows with Dr. Gold and Dr. Sanchez in clinic every week. Denies f/c/n/v/d, mckinnon, vision changes, chest pain, chest tightness, ab pain, back pain, dysuria, hematuria, melena, hematochezia. Pt endorses chronic LE edema BL. ER course was notable for: (1)Vanc/zosyn x1 (2)Na 130 (3)Vitals normal, CXR normal Recent Travel: None PAST MEDICAL HISTORY: HTN PAD OA PAST SURGICAL HISTORY: None Social History: Smoking: Denies Alcohol: Denies Drugs: Denies Family History: Multiple brothers with HTN Allergies No Known Allergies Allergy (Verified 11/29/17 16:17) HOME MEDICATIONS: Home Medications Medication Instructions Recorded Furosemide 20 mg PO DAILY 07/12/17 Losartan/Hydrochlorothiazide 1 tab PO DAILY 07/12/17 [Losartan-Hctz 100-12.5 mg Tab] Metoprolol Succinate 50 mg PO DAILY 07/12/17 Terbinafine HCl 250 mg PO DAILY 07/12/17 Tramadol HCl 50 mg PO DAILY PRN 07/12/17 Aspirin [ASA -] 1 tab PO DAILY 09/20/17 Mupirocin Ointment [Bactroban 2% 1 applic TP DAILY #1 applic 11/15/17 Ointment -] REVIEW OF SYSTEMS CONSTITUTIONAL: Absent: fever, chills, diaphoresis, generalized weakness, malaise, loss of appetite, weight change HEENT: Absent: rhinorrhea, nasal congestion, throat pain, throat swelling, difficulty swallowing, mouth swelling, ear pain, eye pain, visual changes CARDIOVASCULAR: Absent: chest pain, syncope, palpitations, irregular heart rate, lightheadedness , peripheral edema RESPIRATORY: Absent: cough, shortness of breath, dyspnea with exertion, orthopnea, wheezing, stridor, hemoptysis GASTROINTESTINAL: Absent: abdominal pain, abdominal distension, nausea, vomiting, diarrhea, constipation, melena, hematochezia GENITOURINARY: Absent: dysuria, frequency, urgency, hesitancy, hematuria, flank pain, genital pain MUSCULOSKELETAL: Absent: myalgia, arthralgia, joint swelling, back pain, neck pain SKIN: +R foot erythema, drainage, swelling Absent: rash, itching, pallor HEMATOLOGIC/IMMUNOLOGIC: Absent: easy bleeding, easy bruising, lymphadenopathy, frequent infections ENDOCRINE: Absent: unexplained weight gain, unexplained weight loss, heat intolerance, cold intolerance NEUROLOGIC: Absent: headache, focal weakness or paresthesias, dizziness, unsteady gait, seizure, mental status changes, bladder or bowel incontinence PSYCHIATRIC: Absent: anxiety, depression, suicidal or homicidal ideation, hallucinations. PHYSICAL EXAMINATION Vital Signs - 24 hr 11/29/17 11/29/17 16:17 20:12 Temperature 97.7 F 97.9 F Pulse Rate 92 H Pulse Rate [ 70 Apical] Respiratory 18 19 Rate Blood Pressure 158/96 Blood Pressure 149/75 [Left Arm] O2 Sat by Pulse 100 99 Oximetry (%) GENERAL: Elderly woman, Awake, alert, and fully oriented, in no acute distress. HEAD: Normal with no signs of trauma. EYES: Pupils equal, round and reactive to light, extraocular movements intact, sclera anicteric, conjunctiva clear. No lid lag. EARS, NOSE, THROAT: Ears normal, nares patent, oropharynx clear without exudates. Moist mucous membranes. NECK: Normal range of motion, supple without lymphadenopathy, JVD, or masses. LUNGS: Breath sounds equal, clear to auscultation bilaterally. No wheezes, and no crackles. No accessory muscle use. HEART: Regular rate and rhythm, normal S1 and S2 without murmur, rub or gallop. ABDOMEN: Soft, nontender, not distended, normoactive bowel sounds, no guarding, no rebound, no masses. No hepatomegaly or splenomegaly. MUSCULOSKELETAL: Normal range of motion at all joints. No bony deformities or tenderness. No CVA tenderness. UPPER EXTREMITIES: 2+ pulses, warm, well-perfused. No cyanosis. No clubbing. No peripheral edema. LOWER EXTREMITIES: 1+ DP/PT pulses BL. warm, well-perfused. No calf tenderness. 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 2x1 cm erythematous raw macular wound with minimal purulent drainage at distal 3rd metatarsal. NEUROLOGICAL: Cranial nerves II-XII intact. Normal speech. Gait not evaluated. PSYCHIATRIC: Cooperative. Good eye contact. Appropriate mood and affect. SKIN: Warm, dry, normal turgor, no rashes or lesions noted, normal capillary refill. Laboratory Results - last 24 hr CBC, BMP 11/29/17 17:02 11/29/17 17:02 11/29/17 11/29/17 11/29/17 17:02 17:02 17:02 WBC 4.2 RBC 3.62 Hgb 10.4 L Hct 31.4 L MCV 86.7 MCH 28.9 MCHC 33.3 RDW 12.8 Plt Count 311 MPV 7.5 Absolute Neuts (auto) 2.5 Neutrophils % 59.2 Lymphocytes % 24.4 D Monocytes % 10.4 H Eosinophils % 5.4 H Basophils % 0.6 Nucleated RBC % 0 PT with INR INR Sodium 130 L Potassium 4.0 Chloride 92 L Carbon Dioxide 27 Anion Gap 11 BUN 34 H Creatinine 1.1 H Creat Clearance w eGFR 48.04 Random Glucose 128 H Lactic Acid Calcium 8.9 Total Bilirubin 0.3 AST 17 ALT 18 Alkaline Phosphatase 106 Total Protein 7.4 Albumin 3.8 Urine Color Urine Appearance Urine pH Ur Specific [place] Urine Protein Urine Glucose (UA) Urine Ketones Urine Blood Urine Nitrite Urine Bilirubin Urine Urobilinogen Ur Leukocyte Esterase Blood Type O POSITIVE Antibody Screen Negative 11/29/17 11/29/17 11/29/17 17:02 17:16 20:26 WBC RBC Hgb Hct MCV MCH MCHC RDW Plt Count MPV Absolute Neuts (auto) Neutrophils % Lymphocytes % Monocytes % Eosinophils % Basophils % Nucleated RBC % PT with INR 12.10 INR 1.07 Sodium Potassium Chloride Carbon Dioxide Anion Gap BUN Creatinine Creat Clearance w eGFR Random Glucose Lactic Acid 2.0 Calcium Total Bilirubin AST ALT Alkaline Phosphatase Total Protein Albumin Urine Color Straw Urine Appearance Clear Urine pH 5.0 Ur Specific [place] 1.011 Urine Protein Negative Urine Glucose (UA) Negative Urine Ketones Negative Urine Blood Negative Urine Nitrite Negative Urine Bilirubin Negative Urine Urobilinogen Negative Ur Leukocyte Esterase Negative Blood Type Antibody Screen Blood and wound cultures pending CXR - No acute pathology noted. Emphysematous changes appreciated BL. ASSESSMENT/PLAN: 77 yo woman with pmh of PAD, HTN, chronic LE edema who presents from podiatry clinic due to purulent drainage and erythema of chronic 3rd digit wound from prior resection. Wound cultures, blood cultures sent. Pt received vanc/zosyn in ED, will continue current abx coverage and consult Dr. Gold for pre-op evaluation. #R toe cellulitis - no wbc count; blood and wound cultures pending - Consider XR of R foot - f/u wound, blood cultures - c/w vanc/zosyn for coverage - vascular consult - ESR - Serial neurovascular checks - trend WBC, fever curve - Daily dressing changes #HTN - c/w home meds #PAD - Revascularization of ?R leg on , 12/[address] Gold - vascular consult #Chronic LE edema - leg elevation - c/w home lasix, diovan #Hyponatremia - 130 on admission - PO hydration - trend Na - consider PO salt tabs if persistent - urine lytes PPX Lovenox FEN PO hydration Daily lytes Regular diet Plan discussed with attending, Dr Paty De Paz, PGY1 Visit type - Emergency Visit Emergency Visit: Yes ED Registration Date: 11/29/17 Care time: The patient presented to the Emergency Department on the above date and was hospitalized for further evaluation of their emergent condition. - New Patient This patient is new to me today: Yes Date on this admission: 12/02/17 - Critical Care Critical Care patient: No Hospitalist Screening - Colonoscopy Questionnaire Colonoscopy Questionnaire: Colonoscopy Questionnaire - Patient: 50 - 75 years old and never had a screening colonoscopy: Unknown History of colon or rectal polyps, or CA: Unknown History of IBD, Crohn's disease or UC: Unknown History of abdominal radiation therapy as a child: Unknown - Relative: 1 with colon or rectal CA, or polyps at age 60 or younger: Unknown Colon or rectal CA diagnosed at age 45 or younger: Unknown Multiple relatives with colon or rectal CA: Unknown - Outcome: Screening Result: Negative Screen
--- NOTE | 2017-11-29 22:15 | PN ---
Teaching Attending Note Name of Resident: Isael De Paz ATTENDING PHYSICIAN STATEMENT I saw and evaluated the patient. I reviewed the resident's note and discussed the case with the resident. I agree with the resident's findings and plan as documented. SUBJECTIVE: Patient is a 77 year old woman with pmh of PMH, HTN, PAD who presents from wound clinic for suspected infection of post toe amputation wound. She had ampuation of right 3rd toe in June 2017 but the wound has not healed despite hyperbaric therapy. Patient is scheduled for revascularization with Dr. Gold on however wound clinic was worried she may need IV antibiotics today for acute treatment. OBJECTIVE: Alert and in no acute distress. Vital Signs Period Temp Pulse Resp BP Sys/Mcgill Pulse Ox Last 24 Hr 97.7 F-97.9 F 70-92 18-19 149-158/75-96 99-100 HEENT: No Jaundice, eye redness or discharge, PERRLA, EOMI. Normocephalic, atraumatic. External ears are normal and hearing is diminished. No nasal discharge. Neck: Supple, nontender. No palpable adenopathy or thyromegaly. No JVD Chest: Good effort. Clear to auscultation and percussion. Heart: Regular. No S3, rub or murmur Abdomen: Not distended, soft, nontender and no HSM. No rebound or guarding. Normoactive bowel sounds. Ext: Open wet wound on the amputation stump of 3rd right toe with granulation tissue and surrounding ulcers on the dorsum of the foot - has tenderness around the ulcers. Diminished peripheral pulses. Leg edema. Skin: Warm and dry. No petechiae, rash or ecchymosis. Neuro: Alert. Oriented x3. CN 2-12 grossly intact. Sensation grossly intact in all four extremities and DTR are symmetric. Home Medications Medication Instructions Recorded Furosemide 20 mg PO DAILY 07/12/17 Losartan/Hydrochlorothiazide 1 tab PO DAILY 07/12/17 [Losartan-Hctz 100-12.5 mg Tab] Metoprolol Succinate 50 mg PO DAILY 07/12/17 Terbinafine HCl 250 mg PO DAILY 07/12/17 Tramadol HCl 50 mg PO DAILY PRN 07/12/17 Aspirin [ASA -] 1 tab PO DAILY 09/20/17 Mupirocin Ointment [Bactroban 2% 1 applic TP DAILY #1 applic 11/15/17 Ointment -] Abnormal Lab Results 11/29/17 11/29/17 17:02 17:02 Hgb 10.4 L Hct 31.4 L Monocytes % 10.4 H Eosinophils % 5.4 H Sodium 130 L Chloride 92 L BUN 34 H Creatinine 1.1 H Random Glucose 128 H ASSESSMENT AND PLAN: 1. Nonhealing toe wound - Will do daily wound care, send wound culture and continue Vancomycin and zosyn. Scheduled for revascularization for PAD. 2. Hypertension - restart her regular antihypertensive drugs and stress low salt diet. 3. Anemia - Likely partly due to chronic inflammation, but will check stool guaiac and iron studies. 4. MYA - Has risk factors for CKD. Do basic nephrologic work up and ensure adequate hydration to minimize risk of vancomycin toxicity. 5. Hyponatremia - Etiology unclear and it appears that is chronic. may be due to HCTZ. May consider stopping HCTZ. Check TFT. 6. DVT prophylaxis - Heparin 5000u sq tid. 7. Advance directives - Full code
[2017-11-30] MEDS ORDERED: hydrALAZINE HCL 10 MG TABLET PO ONE (00:06)
[2017-11-30] MEDS: traMADol HCL 50 MG TABLET PO PRN ×2 (00:08→19:37)
[2017-11-30 00:59] VITALS: BMI 24.5
[2017-11-30] MEDS ORDERED: PIPERACILLIN/TAZOB 3.375 GM 3.375 GM in DEXTROSE 5%-WATER - 50 ML IVPB ONE (04:00)
[2017-11-30] MEDS ORDERED: PIPERACILLIN/TAZOBACTAM 3.375 GM VIAL IVPB ONE ×3 (05:30→17:17)
[2017-11-30] MEDS ORDERED: DEXTROSE 5%-WATER - 50 ML IVPB ONE ×3 (05:30→17:18)
[2017-11-30 07:34] LABS: BASO % 0.5 % (0-2.0); EOS % 6.5 % (0-4.5); HEMATOCRIT 31.1 % (32.4-45.2); HEMOGLOBIN 10.6 GM/dL (10.7-15.3); LYMPH % 26.1 % (8-40); MCH 29.6 pg (25.7-33.7); MEAN CELL VOLUME 87.1 fl (80-96); MEAN PLT VOLUME 7.5 fl (7.5-11.1); MONO % 12.8 % (3.8-10.2); NEUT % 54.1 % (42.8-82.8); PLATELET COUNT 295 K/MM3 (134-434); RBC 3.56 M/mm3 (3.60-5.2); RDW 12.6 % (11.6-15.6); WHITE BLOOD COUNT 4.9 K/mm3 (4.0-10.0)
[2017-11-30 07:42] LABS: INR 1.11 (0.82-1.09); PROTHROMBIN TIME (PATIENT) 12.5 SEC (9.7-13.0)
[2017-11-30 07:45] LABS: ACTIVATED PTT 33.5 SECONDS (25.2-36.5)
--- NOTE | 2017-11-30 07:52 | PN ---
Physical Exam: SUBJECTIVE: Patient seen and examined. OBJECTIVE: Vital Signs Period Temp Pulse Resp BP Sys/Mcgill Pulse Ox Last 24 Hr 97.7 F-98.7 F 70-92 18-20 149-162/70-96 99-100 Vital Signs Temp 98.0 F 11/30/17 06:06 Pulse 83 11/30/17 06:06 Resp 20 11/30/17 06:06 BP 153/70 11/30/17 06:06 Pulse Ox 99 11/29/17 20:12 Intake & Output 11/29/17 11/29/17 11/30/17 11:59 23:59 11:59 Weight 71.214 kg Other: Voiding Method Toilet Height 1.7 m Body Mass Index (BMI) 24.5 Weight Measurement Method Stated by Patient Intake & Output 11/27/17 11/28/17 11/29/17 11/30/17 23:59 23:59 23:59 23:59 Weight 71.214 kg GENERAL: The patient is awake, alert, and fully oriented, in no acute distress. HEAD: Normal with no signs of trauma. EYES: PERRL, extraocular movements intact, sclera anicteric, conjunctiva clear. No ptosis. ENT: Ears normal, nares patent, oropharynx clear without exudates, moist mucous membranes. NECK: Trachea midline, full range of motion, supple. LUNGS: Breath sounds equal, clear to auscultation bilaterally, no wheezes, no crackles, no accessory muscle use. HEART: Regular rate and rhythm, S1, S2 without murmur, rub or gallop. ABDOMEN: Soft, nontender, nondistended, normoactive bowel sounds, no guarding, no rebound, no hepatosplenomegaly, no masses. EXTREMITIES: 2+ pulses, warm, well-perfused, no edema. NEUROLOGICAL: Cranial nerves II through XII grossly intact. Normal speech, gait not observed. PSYCH: Normal mood, normal affect. SKIN: Warm, dry, normal turgor, no rashes or lesions noted Laboratory Results - last 24 hr 11/29/17 11/29/17 11/29/17 17:02 17:02 17:02 WBC 4.2 RBC 3.62 Hgb 10.4 L Hct 31.4 L MCV 86.7 MCH 28.9 MCHC 33.3 RDW 12.8 Plt Count 311 MPV 7.5 Absolute Neuts (auto) 2.5 Neutrophils % 59.2 Lymphocytes % 24.4 D Monocytes % 10.4 H Eosinophils % 5.4 H Basophils % 0.6 Nucleated RBC % 0 PT with INR INR PTT (Actin FS) Sodium 130 L Potassium 4.0 Chloride 92 L Carbon Dioxide 27 Anion Gap 11 BUN 34 H Creatinine 1.1 H Creat Clearance w eGFR 48.04 Random Glucose 128 H Lactic Acid Calcium 8.9 Total Bilirubin 0.3 AST 17 ALT 18 Alkaline Phosphatase 106 Total Protein 7.4 Albumin 3.8 Urine Color Urine Appearance Urine pH Ur Specific [place] Urine Protein Urine Glucose (UA) Urine Ketones Urine Blood Urine Nitrite Urine Bilirubin Urine Urobilinogen Ur Leukocyte Esterase Blood Type O POSITIVE Antibody Screen Negative 11/29/17 11/29/17 11/29/17 17:02 17:16 20:26 WBC RBC Hgb Hct MCV MCH MCHC RDW Plt Count MPV Absolute Neuts (auto) Neutrophils % Lymphocytes % Monocytes % Eosinophils % Basophils % Nucleated RBC % PT with INR 12.10 INR 1.07 PTT (Actin FS) Sodium Potassium Chloride Carbon Dioxide Anion Gap BUN Creatinine Creat Clearance w eGFR Random Glucose Lactic Acid 2.0 Calcium Total Bilirubin AST ALT Alkaline Phosphatase Total Protein Albumin Urine Color Straw Urine Appearance Clear Urine pH 5.0 Ur Specific [place] 1.011 Urine Protein Negative Urine Glucose (UA) Negative Urine Ketones Negative Urine Blood Negative Urine Nitrite Negative Urine Bilirubin Negative Urine Urobilinogen Negative Ur Leukocyte Esterase Negative Blood Type Antibody Screen 11/30/17 11/30/17 06:30 06:30 WBC 4.9 RBC 3.56 L Hgb 10.6 L Hct 31.1 L MCV 87.1 MCH 29.6 MCHC 34.0 RDW 12.6 Plt Count 295 MPV 7.5 Absolute Neuts (auto) 2.6 Neutrophils % 54.1 Lymphocytes % 26.1 Monocytes % 12.8 H Eosinophils % 6.5 H Basophils % 0.5 Nucleated RBC % 0 PT with INR 12.50 INR 1.11 PTT (Actin FS) 33.5 Sodium Potassium Chloride Carbon Dioxide Anion Gap BUN Creatinine Creat Clearance w eGFR Random Glucose Lactic Acid Calcium Total Bilirubin AST ALT Alkaline Phosphatase Total Protein Albumin Urine Color Urine Appearance Urine pH Ur Specific [place] Urine Protein Urine Glucose (UA) Urine Ketones Urine Blood Urine Nitrite Urine Bilirubin Urine Urobilinogen Ur Leukocyte Esterase Blood Type Antibody Screen Current Medications Acetaminophen (Tylenol -) 650 mg PO Q4H PRN PRN Reason: PAIN LEVEL 1 - 3 Aspirin (Asa -) 81 mg PO DAILY [place] Enoxaparin Sodium (Lovenox -) 40 mg SQ DAILY [place] Furosemide (Lasix -) 20 mg PO DAILY [place] Hydrochlorothiazide (Hctz -) 12.5 mg PO DAILY [place] Losartan Potassium (Cozaar -) 100 mg PO DAILY [place] Metoprolol Succinate (Toprol Xl -) 50 mg PO DAILY [place] Tramadol HCl (Ultram -) 50 mg PO DAILY PRN PRN Reason: PAIN LEVEL 4 - 6 Last Admin: 11/30/17 00:08 Dose: 50 mg Ambulatory Orders Furosemide 20 mg PO DAILY 07/12/17 Losartan/Hydrochlorothiazide [Losartan-Hctz 100-12.5 mg Tab] 1 tab PO DAILY Metoprolol Succinate 50 mg PO DAILY 07/12/17 Terbinafine HCl 250 mg PO DAILY 07/12/17 Tramadol HCl 50 mg PO DAILY PRN 07/12/17 Aspirin [ASA -] 1 tab PO DAILY 09/20/17 Mupirocin Ointment [Bactroban 2% Ointment -] 1 applic TP DAILY #1 applic ASSESSMENT/PLAN:
[2017-11-30 07:56] LABS: ALBUMIN 3.8 g/dl (3.4-5.0); ANION GAP 8 (8-16); BLOOD UREA NITROGEN 25 mg/dL (7-18); CALCIUM 9.3 mg/dL (8.5-10.1); CHLORIDE 93 mmol/L (98-107); CO2 29 mmol/L (21-32); POTASSIUM 4.3 mmol/L (3.5-5.1); SODIUM 130 mmol/L (136-145)
[2017-11-30 08:00] LABS: ALK PHOS 78 U/L (45-117); BILIRUBIN,TOTAL 0.6 mg/dL (0.2-1.0); GLUCOSE,RANDOM 104 mg/dL (74-106); PHOSPHOROUS 3.7 mg/dL (2.5-4.9); SGOT/AST 18 U/L (15-37); SGPT/ALT 17 U/L (12-78); TOT PROT 7.6 g/dl (6.4-8.2)
[2017-11-30] MEDS ORDERED: PATIENT'S OWN MEDICATION (NON-FORMULARY) (Losartan/Hydrochlorothiazide [Losartan-Hctz 100- PO SCH (10:00)
[2017-11-30] MEDS ORDERED: PATIENT'S OWN MEDICATION (NON-FORMULARY) (Terbinafine Hcl [Terbinafine Hcl] 250 MG) PO SCH (10:00)
--- NOTE | 2017-11-30 10:41 | EKG ---
Test Reason : Blood Pressure : / mmHG Vent. Rate : 095 BPM Atrial Rate : 095 BPM P-R Int : 202 ms QRS Dur : 074 ms QT Int : 338 ms P-R-T Axes : 059 017 030 degrees QTc Int : 424 ms POOR DATA QUALITY, INTERPRETATION MAY BE ADVERSELY AFFECTED NORMAL SINUS RHYTHM NORMAL ECG WHEN COMPARED WITH ECG OF 12-JUL-2017 16:30, CRITERIA FOR ANTERIOR INFARCT ARE NO LONGER PRESENT Confirmed by CHIDI BIRD, DOMINIC ([id number]) on 11/30/2017 10:41:24 AM Referred By: Confirmed By:DOMINIC MURILLO MD
[2017-11-30] MEDS: HYDROCHLOROTHIAZIDE 12.5 MG CAPSULE (FP) PO SCH (11:01)
[2017-11-30] MEDS: LOSARTAN POTASSIUM 50 MG TABLET (FP) PO SCH (11:01)
[2017-11-30] MEDS: ASPIRIN 81 MG CHEWABLE TABLETS PO SCH (11:01)
[2017-11-30] MEDS: ACETAMINOPHEN 325 MG TABLET (FP) PO PRN ×2 (11:02→22:41)
[2017-11-30] MEDS: ENOXAPARIN NA (PORCINE) 40 MG/0.4 ML DISP.SYRIN SQ SCH (11:03)
[2017-11-30] MEDS: FUROSEMIDE 20 MG TABLET (FP) PO SCH (11:04)
--- NOTE | 2017-11-30 11:06 | PN ---
Progress Note (short form) - Note Progress Note: ID consult dictated Infected surgical site PVD Await cultures empiric vancomycin/ zosyn
[2017-11-30] MEDS: COLLAGENASE CLOSTRIDIUM HIST. 30 GRAMS TUBE TP SCH (11:44)
[2017-11-30] MEDS: PIPERACILLIN/TAZOB 3.375 GM 3.375 GM in DEXTROSE 5%-WATER - 50 ML IVPB SCH ×2 (12:00→17:41)
--- NOTE | 2017-11-30 12:15 | CONSULT ---
Consult - text type - Consultation Consultation Note: Patient being followed for right foot ischemia with new wounds. Seen this morning as was sent by me for admission yesterday. +chronic right foot wound, new wounds right foot, +localized cellulitis, + ischemic right foot, chronic wound ischemia pvd Scheduled for surgery tomorrow with vascular. ID on case. Santyl dressing chjanges till then. Will foillow.
[2017-11-30] MEDS ORDERED: PT OWN MED DRAWER 7, Y5N ONE ×2 (12:31→23:07)
--- NOTE | 2017-11-30 12:55 | CONS ---
DATE OF CONSULTATION: DATE OF DICTATION: 11/30/2017 The patient is a 77-year-old female evaluated for infected surgical wound site. The patient has a history of peripheral vascular disease. She underwent amputation of the right 3rd toe approximately 5 months ago. She [facility] being [facility]. She reported satisfactory wound healing up until last week. Last week, a new dressing was applied and she apparently had developed an open wound on the amputation site. She was referred from the [facility] to the emergency room for admission for IV antibiotics after purulent drainage and worsening erythema was noted. She was scheduled for a vascular stent tomorrow. She denies any associated fever or chills. Denies history of a serious soft tissue infection requiring hospitalization. Past medical history positive for hypertension, peripheral vascular disease, chronic lower extremity edema. 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 No known allergies. MEDICATIONS: Lasix, losartan, hydrochlorothiazide, metoprolol, tramadol, aspirin. SOCIAL HISTORY: She resides at home. She is a nonsmoker, nondrinker. SYSTEMS REVIEW: Neurologic: No loss of consciousness, seizure activity, or focal weakness. Cardiac: Negative chest pain or palpitations. Respiratory: Negative cough or sputum production. Gastrointestinal: Negative vomiting or diarrhea. Genitourinary: Negative for urinary tract infection. LABORATORY DATA: White count 4.9, hematocrit 31.1, platelet count 295, differential of 54 neutrophils, 26 lymphocytes, 12 monocytes, 6 eosinophils, sedimentation rate 34. BUN 25, creatinine 1.0. Urine leukocyte esterase negative. Cultures are pending. PHYSICAL EXAMINATION: General: She is awake and alert, she is in no acute distress. Vital Signs: Temperature 98.0. Blood pressure 153/70. Pulse 83, regular. Respirations 20 per minute. Eyes: Sclerae anicteric. Heart Sounds: S1, S2. Lungs: Clear. Abdomen: Soft. No tenderness elicited. No mass, rebound or rigidity. Extremities: Positive bilateral lower extremity edema. The right 3rd toe amputation site is ulcerated, with the ulcer extending from the amputation site to the dorsum of the foot. There is some serous drainage noted. No gross purulence or foul odor. IMPRESSION: 1. Infected surgical site, right 3rd toe. 2. Peripheral vascular disease. Await culture results, surgical followup. Empiric antibiotic coverage with vancomycin and Zosyn. Will follow. Thank you for the kind referral. JOSE CARLOS DIAS M.D. [place]/[id number]
[2017-11-30] MEDS: VANCOMYCIN 1,000 MG in DEXTROSE 5%-WATER - 250 ML IVPB SCH (13:56)
--- NOTE | 2017-11-30 15:20 | PN ---
Progress Note (short form) - Note Progress Note: Surgery 77yo sent from wound care clinic admitted for right 3rd toe infection. Patient had partial 3rd toe amputation with Dr Sanchez in Jul 2017 and had been following in the wound care clinic since. The patient states that the wound was healing fine and was "closed" until they applied a different type of topical and the wound opened up. Of Note: She was scheduled for Angiogram/angioplasty of right LE with Dr Gold as out patient Vital Signs Temp 98.8 F 11/30/17 14:00 Pulse 88 11/30/17 14:00 Resp 18 11/30/17 14:00 BP 128/67 11/30/17 14:00 Pulse Ox 99 11/29/17 20:12 Intake & Output 11/29/17 11/30/17 11/30/17 23:59 11:59 23:59 Intake Total 450 Balance 450 Weight 157 lb Intake: IVPB 250 Oral 200 Other: Voiding Method Toilet Toilet # Unmeasured Voids Void 1 Bowel Movement No # Bowel Movements 0 Height 5 ft 7 in Body Mass Index (BMI) 24.5 Weight Measurement Method Stated by Patient CBC, BMP 11/30/17 06:30 11/30/17 06:30 PE: A&Ox3, NAD unlabored resp on RA Right LE: 3rd toe with partial amp over volar surface with puss and fibrinous exudate extending across the MTP joint onto dorsum. B/L LE compartments soft, supple. feet warm to touch. Problem List - Problems (1) PVD (peripheral vascular disease) Assessment/Plan: Patient with PDV and infection of right 3rd toe, being managed by Dr Sanchez, was scheduled for revascularization as outpatient. 1) NPO after midnight for OR Angiogram/plasty tomorrow with Dr Gold 2) DVT/GI prophylaxis 3) Medical optimization for OR 4) Continue IV ABX per ID Evaluation and plan discussed with Dr Gold Code(s): I73.9 - PERIPHERAL VASCULAR DISEASE, UNSPECIFIED
--- NOTE | 2017-11-30 16:12 | PN ---
Physical Exam: SUBJECTIVE: Patient seen and examined. No fevers, pain controlled with medications OBJECTIVE: Vital Signs Period Temp Pulse Resp BP Sys/Mcgill Pulse Ox Last 24 Hr 97.2 F-98.8 F 70-92 18-20 128-162/58-96 99-100 Vital Signs Temp 98.8 F 11/30/17 14:00 Pulse 88 11/30/17 14:00 Resp 18 11/30/17 14:00 BP 128/67 11/30/17 14:00 Pulse Ox 99 11/29/17 20:12 Intake & Output 11/29/17 11/30/17 11/30/17 23:59 11:59 23:59 Intake Total 450 Balance 450 Weight 71.214 kg Intake: IVPB 250 Oral 200 Other: Voiding Method Toilet Toilet # Unmeasured Voids Void 1 Bowel Movement No # Bowel Movements 0 Height 1.7 m Body Mass Index (BMI) 24.5 Weight Measurement Method Stated by Patient Intake & Output 11/27/17 11/28/17 11/29/17 11/30/17 23:59 23:59 23:59 23:59 Intake Total 450 Balance 450 Weight 71.214 kg GENERAL: The patient is awake, alert, and fully oriented, in no acute distress. ENT: moist mucous membranes. LUNGS: Breath sounds equal, clear to auscultation bilaterally HEART: Regular rate and rhythm, S1, S2 ABDOMEN: Soft, nontender, nondistended, normoactive bowel sounds EXTREMITIES: 2+ pulses, on RLE bilateral pedal edema. Amputated 3rd toe up to metarsal joint with open ulcer on dorsum of the footextending from 3rd toe by about 3cm. Yellowish base with serosanguinous drianage. Tender NEUROLOGICAL: AAOx3. PSYCH: Normal mood, normal affect. SKIN: Warm, dry, normal turgor, no rashes or lesions noted CBC, BMP 11/30/17 17:30 11/30/17 06:30 Laboratory Results - last 24 hr 11/29/17 11/29/17 11/29/17 17:02 17:02 17:02 WBC 4.2 RBC 3.62 Hgb 10.4 L Hct 31.4 L MCV 86.7 MCH 28.9 MCHC 33.3 RDW 12.8 Plt Count 311 MPV 7.5 Absolute Neuts (auto) 2.5 Neutrophils % 59.2 Lymphocytes % 24.4 D Monocytes % 10.4 H Eosinophils % 5.4 H Basophils % 0.6 Nucleated RBC % 0 ESR PT with INR INR PTT (Actin FS) Sodium 130 L Potassium 4.0 Chloride 92 L Carbon Dioxide 27 Anion Gap 11 BUN 34 H Creatinine 1.1 H Creat Clearance w eGFR 48.04 Random Glucose 128 H Lactic Acid Calcium 8.9 Phosphorus Magnesium Total Bilirubin 0.3 AST 17 ALT 18 Alkaline Phosphatase 106 Total Protein 7.4 Albumin 3.8 Urine Color Urine Appearance Urine pH Ur Specific [place] Urine Protein Urine Glucose (UA) Urine Ketones Urine Blood Urine Nitrite Urine Bilirubin Urine Urobilinogen Ur Leukocyte Esterase Blood Type O POSITIVE Antibody Screen Negative 11/29/17 11/29/17 11/29/17 17:02 17:16 20:26 WBC RBC Hgb Hct MCV MCH MCHC RDW Plt Count MPV Absolute Neuts (auto) Neutrophils % Lymphocytes % Monocytes % Eosinophils % Basophils % Nucleated RBC % ESR PT with INR 12.10 INR 1.07 PTT (Actin FS) Sodium Potassium Chloride Carbon Dioxide Anion Gap BUN Creatinine Creat Clearance w eGFR Random Glucose Lactic Acid 2.0 Calcium Phosphorus Magnesium Total Bilirubin AST ALT Alkaline Phosphatase Total Protein Albumin Urine Color Straw Urine Appearance Clear Urine pH 5.0 Ur Specific [place] 1.011 Urine Protein Negative Urine Glucose (UA) Negative Urine Ketones Negative Urine Blood Negative Urine Nitrite Negative Urine Bilirubin Negative Urine Urobilinogen Negative Ur Leukocyte Esterase Negative Blood Type Antibody Screen 11/30/17 11/30/17 11/30/17 06:30 06:30 06:30 WBC 4.9 RBC 3.56 L Hgb 10.6 L Hct 31.1 L MCV 87.1 MCH 29.6 MCHC 34.0 RDW 12.6 Plt Count 295 MPV 7.5 Absolute Neuts (auto) 2.6 Neutrophils % 54.1 Lymphocytes % 26.1 Monocytes % 12.8 H Eosinophils % 6.5 H Basophils % 0.5 Nucleated RBC % 0 ESR 34 H PT with INR 12.50 INR 1.11 PTT (Actin FS) 33.5 Sodium Potassium Chloride Carbon Dioxide Anion Gap BUN Creatinine Creat Clearance w eGFR Random Glucose Lactic Acid Calcium Phosphorus Magnesium Total Bilirubin AST ALT Alkaline Phosphatase Total Protein Albumin Urine Color Urine Appearance Urine pH Ur Specific [place] Urine Protein Urine Glucose (UA) Urine Ketones Urine Blood Urine Nitrite Urine Bilirubin Urine Urobilinogen Ur Leukocyte Esterase Blood Type Antibody Screen 11/30/17 06:30 WBC RBC Hgb Hct MCV MCH MCHC RDW Plt Count MPV Absolute Neuts (auto) Neutrophils % Lymphocytes % Monocytes % Eosinophils % Basophils % Nucleated RBC % ESR PT with INR INR PTT (Actin FS) Sodium 130 L Potassium 4.3 Chloride 93 L Carbon Dioxide 29 Anion Gap 8 BUN 25 H Creatinine 1.0 Creat Clearance w eGFR 53.62 Random Glucose 104 Lactic Acid Calcium 9.3 Phosphorus 3.7 Magnesium 2.0 Total Bilirubin 0.6 D AST 18 ALT 17 Alkaline Phosphatase 78 Total Protein 7.6 Albumin 3.8 Urine Color Urine Appearance Urine pH Ur Specific [place] Urine Protein Urine Glucose (UA) Urine Ketones Urine Blood Urine Nitrite Urine Bilirubin Urine Urobilinogen Ur Leukocyte Esterase Blood Type Antibody Screen Current Medications Acetaminophen (Tylenol -) 650 mg PO Q4H PRN PRN Reason: PAIN LEVEL 1 - 3 Last Admin: 11/30/17 11:02 Dose: 650 mg Aspirin (Asa -) 81 mg PO DAILY [facility] Last Admin: 11/30/17 11:01 Dose: 81 mg Collagenase (Santyl -) 1 applic TP DAILY [facility] Last Admin: 11/30/17 11:44 Dose: Not Given Enoxaparin Sodium (Lovenox -) 40 mg SQ DAILY [facility] Last Admin: 11/30/17 11:03 Dose: 40 mg Furosemide (Lasix -) 20 mg PO DAILY [facility] Last Admin: 11/30/17 11:04 Dose: 20 mg Hydrochlorothiazide (Hctz -) 12.5 mg PO DAILY [facility] Last Admin: 11/30/17 11:01 Dose: 12.5 mg Vancomycin HCl 1,000 mg/ (Dextrose) 250 mls @ 166.667 mls/hr IVPB Q12H [facility]; Protocol Last Admin: 11/30/17 13:56 Dose: 166.667 mls/hr Piperacillin Sod/Tazobactam (Sod 3.375 gm/ Dextrose) 50 mls @ 100 mls/hr IVPB Q8H-IV [facility]; Protocol Last Admin: 11/30/17 17:41 Dose: 100 mls/hr Losartan Potassium (Cozaar -) 100 mg PO DAILY [facility] Last Admin: 11/30/17 11:01 Dose: 100 mg Metoprolol Succinate (Toprol Xl -) 50 mg PO DAILY [place] Last Admin: 11/30/17 11:02 Dose: 50 mg Tramadol HCl (Ultram -) 50 mg PO DAILY PRN PRN Reason: PAIN LEVEL 4 - 6 Last Admin: 11/30/17 19:37 Dose: 50 mg Ambulatory Orders Furosemide 20 mg PO DAILY 07/12/17 Losartan/Hydrochlorothiazide [Losartan-Hctz 100-12.5 mg Tab] 1 tab PO DAILY Metoprolol Succinate 50 mg PO DAILY 07/12/17 Terbinafine HCl 250 mg PO DAILY 07/12/17 Tramadol HCl 50 mg PO DAILY PRN 07/12/17 Aspirin [ASA -] 1 tab PO DAILY 09/20/17 Mupirocin Ointment [Bactroban 2% Ointment -] 1 applic TP DAILY #1 applic Microbiology 11/29/17 20:59 Blood - Peripheral Venous Blood Culture - Preliminary NO GROWTH OBTAINED AFTER 24 HOURS, INCUBATION TO CONTINUE FOR 4 DAYS. 11/29/17 20:26 Blood - Peripheral Venous Blood Culture - Preliminary NO GROWTH OBTAINED AFTER 24 HOURS, INCUBATION TO CONTINUE FOR 4 DAYS. CXR - No acute pathology noted. Emphysematous changes appreciated BL. ASSESSMENT/PLAN: 77 yo woman with pmh of PAD, HTN, chronic LE edema who presents from podiatry clinic due to purulent drainage and erythema of chronic 3rd digit wound from prior resection Jun 2017. Pt on vanc/zosyn and consult Dr. Gold for pre-op evaluation. #R foot cellulitis - no wbc count; blood -prelim -ve, wound cultures pending - XR of R foot - f/u cultures - c/w vanc/zosyn for coverage - vascular consult - ESR - Serial neurovascular checks - trend WBC, fever curve - Daily dressing changes #HTN - c/w home meds-metoprolol 50mg daily #PAD - Revascularization of ?R leg on , 12/[address] Gold - vascular consult #Chronic LE edema - leg elevation - c/w home lasix, #Hyponatremia - 130 on admission - PO hydration - trend Na - consider PO salt tabs if persistent - urine lytes PPX Lovenox FEN PO hydration Daily lytes NPO after midnight Dispo F revascularization in am Visit type - Emergency Visit Emergency Visit: Yes ED Registration Date: 11/29/17 Care time: The patient presented to the Emergency Department on the above date and was hospitalized for further evaluation of their emergent condition. - New Patient This patient is new to me today: Yes Date on this admission: 11/30/17 - Critical Care Critical Care patient: No - Discharge Referral Referred to [facility] Med P.C.: Yes
--- NOTE | 2017-11-30 16:29 | PN ---
Teaching Attending Note Name of Resident: Ida Becker ATTENDING PHYSICIAN STATEMENT I saw and evaluated the patient. I reviewed the resident's note and discussed the case with the resident. I agree with the resident's findings and plan as documented with exceptions below. SUBJECTIVE: Patient seen and examined. right foot pain and discharge, reports over last 24 hours. OBJECTIVE: Vital Signs Period Temp Pulse Resp BP Sys/Mcgill Pulse Ox Last 24 Hr 97.2 F-98.8 F 70-89 18-20 128-162/58-82 99 Intake & Output 11/27/17 11/28/17 11/29/17 11/30/17 23:59 23:59 23:59 23:59 Intake Total 450 Balance 450 Weight 157 lb General: sitting in bed in no acute distress Extremities: Right foot ulcers in between 2nd and 34d toes wth purulent discharge and surrounding swelling with erythema, swellling lower 1/3rd Right leg, Home Medications Medication Instructions Recorded Furosemide 20 mg PO DAILY 07/12/17 Losartan/Hydrochlorothiazide 1 tab PO DAILY 07/12/17 [Losartan-Hctz 100-12.5 mg Tab] Metoprolol Succinate 50 mg PO DAILY 07/12/17 Terbinafine HCl 250 mg PO DAILY 07/12/17 Tramadol HCl 50 mg PO DAILY PRN 07/12/17 Aspirin [ASA -] 1 tab PO DAILY 09/20/17 Mupirocin Ointment [Bactroban 2% 1 applic TP DAILY #1 applic 11/15/17 Ointment -] Active Medications Acetaminophen (Tylenol -) 650 mg PO Q4H PRN PRN Reason: PAIN LEVEL 1 - 3 Last Admin: 11/30/17 11:02 Dose: 650 mg Aspirin (Asa -) 81 mg PO DAILY [facility] Last Admin: 11/30/17 11:01 Dose: 81 mg Collagenase (Santyl -) 1 applic TP DAILY [facility] Last Admin: 11/30/17 11:44 Dose: Not Given Enoxaparin Sodium (Lovenox -) 40 mg SQ DAILY [facility] Last Admin: 11/30/17 11:03 Dose: 40 mg Furosemide (Lasix -) 20 mg PO DAILY [facility] Last Admin: 11/30/17 11:04 Dose: 20 mg Hydrochlorothiazide (Hctz -) 12.5 mg PO DAILY [facility] Last Admin: 11/30/17 11:01 Dose: 12.5 mg Vancomycin HCl 1,000 mg/ (Dextrose) 250 mls @ 166.667 mls/hr IVPB Q12H [facility]; Protocol Last Admin: 11/30/17 13:56 Dose: 166.667 mls/hr Piperacillin Sod/Tazobactam (Sod 3.375 gm/ Dextrose) 50 mls @ 100 mls/hr IVPB Q8H-IV [facility]; Protocol Last Admin: 11/30/17 12:00 Dose: 100 mls/hr Losartan Potassium (Cozaar -) 100 mg PO DAILY [facility] Last Admin: 11/30/17 11:01 Dose: 100 mg Metoprolol Succinate (Toprol Xl -) 50 mg PO DAILY [facility] Last Admin: 11/30/17 11:02 Dose: 50 mg Tramadol HCl (Ultram -) 50 mg PO DAILY PRN PRN Reason: PAIN LEVEL 4 - 6 Last Admin: 11/30/17 00:08 Dose: 50 mg Laboratory Results - last 24 hr 11/29/17 11/29/17 11/29/17 17:02 17:02 17:02 WBC 4.2 RBC 3.62 Hgb 10.4 L Hct 31.4 L MCV 86.7 MCH 28.9 MCHC 33.3 RDW 12.8 Plt Count 311 MPV 7.5 Absolute Neuts (auto) 2.5 Neutrophils % 59.2 Lymphocytes % 24.4 D Monocytes % 10.4 H Eosinophils % 5.4 H Basophils % 0.6 Nucleated RBC % 0 ESR PT with INR INR PTT (Actin FS) Sodium 130 L Potassium 4.0 Chloride 92 L Carbon Dioxide 27 Anion Gap 11 BUN 34 H Creatinine 1.1 H Creat Clearance w eGFR 48.04 Random Glucose 128 H Lactic Acid Calcium 8.9 Phosphorus Magnesium Total Bilirubin 0.3 AST 17 ALT 18 Alkaline Phosphatase 106 Total Protein 7.4 Albumin 3.8 Urine Color Urine Appearance Urine pH Ur Specific Kimberly Urine Protein Urine Glucose (UA) Urine Ketones Urine Blood Urine Nitrite Urine Bilirubin Urine Urobilinogen Ur Leukocyte Esterase Blood Type O POSITIVE Antibody Screen Negative 11/29/17 11/29/17 11/29/17 17:02 17:16 20:26 WBC RBC Hgb Hct MCV MCH MCHC RDW Plt Count MPV Absolute Neuts (auto) Neutrophils % Lymphocytes % Monocytes % Eosinophils % Basophils % Nucleated RBC % ESR PT with INR 12.10 INR 1.07 PTT (Actin FS) Sodium Potassium Chloride Carbon Dioxide Anion Gap BUN Creatinine Creat Clearance w eGFR Random Glucose Lactic Acid 2.0 Calcium Phosphorus Magnesium Total Bilirubin AST ALT Alkaline Phosphatase Total Protein Albumin Urine Color Straw Urine Appearance Clear Urine pH 5.0 Ur Specific Kimberly 1.011 Urine Protein Negative Urine Glucose (UA) Negative Urine Ketones Negative Urine Blood Negative Urine Nitrite Negative Urine Bilirubin Negative Urine Urobilinogen Negative Ur Leukocyte Esterase Negative Blood Type Antibody Screen 11/30/17 11/30/17 11/30/17 06:30 06:30 06:30 WBC 4.9 RBC 3.56 L Hgb 10.6 L Hct 31.1 L MCV 87.1 MCH 29.6 MCHC 34.0 RDW 12.6 Plt Count 295 MPV 7.5 Absolute Neuts (auto) 2.6 Neutrophils % 54.1 Lymphocytes % 26.1 Monocytes % 12.8 H Eosinophils % 6.5 H Basophils % 0.5 Nucleated RBC % 0 ESR 34 H PT with INR 12.50 INR 1.11 PTT (Actin FS) 33.5 Sodium Potassium Chloride Carbon Dioxide Anion Gap BUN Creatinine Creat Clearance w eGFR Random Glucose Lactic Acid Calcium Phosphorus Magnesium Total Bilirubin AST ALT Alkaline Phosphatase Total Protein Albumin Urine Color Urine Appearance Urine pH Ur Specific Kimberly Urine Protein Urine Glucose (UA) Urine Ketones Urine Blood Urine Nitrite Urine Bilirubin Urine Urobilinogen Ur Leukocyte Esterase Blood Type Antibody Screen 11/30/17 06:30 WBC RBC Hgb Hct MCV MCH MCHC RDW Plt Count MPV Absolute Neuts (auto) Neutrophils % Lymphocytes % Monocytes % Eosinophils % Basophils % Nucleated RBC % ESR PT with INR INR PTT (Actin FS) Sodium 130 L Potassium 4.3 Chloride 93 L Carbon Dioxide 29 Anion Gap 8 BUN 25 H Creatinine 1.0 Creat Clearance w eGFR 53.62 Random Glucose 104 Lactic Acid Calcium 9.3 Phosphorus 3.7 Magnesium 2.0 Total Bilirubin 0.6 D AST 18 ALT 17 Alkaline Phosphatase 78 Total Protein 7.6 Albumin 3.8 Urine Color Urine Appearance Urine pH Ur Specific Kimberly Urine Protein Urine Glucose (UA) Urine Ketones Urine Blood Urine Nitrite Urine Bilirubin Urine Urobilinogen Ur Leukocyte Esterase Blood Type Antibody Screen ASSESSMENT AND PLAN: 77 yof with PMhx of PAD, HTN, chronic LE edema, right 3rd toe partial amputation her with righ foot infected ulcer and PAD -Right foot infected ulcer with cellulitis -PAD -HTN Plan: ID input noted, shanteln/vancomycin. Vascular surgery input noted, for [place] in [place] podiatry input noted, follow up for wound debridement and surgical intervention. Continue Losartan/HCTZ, metoprolol, lasix. DVTPPX with lovenox Dispo planning pending above. Plan discussed with patient in detail, all questions answered.
[2017-11-30 18:37] LABS: HEMATOCRIT 29.3 % (32.4-45.2); HEMOGLOBIN 9.9 GM/dL (10.7-15.3); MCH 29.2 pg (25.7-33.7); MCHC 33.7 g/dl (32.0-36.0); MEAN CELL VOLUME 86.6 fl (80-96); MEAN PLT VOLUME 7.7 fl (7.5-11.1); PLATELET COUNT 351 K/MM3 (134-434); RBC 3.38 M/mm3 (3.60-5.2); RDW 12.8 % (11.6-15.6); WHITE BLOOD COUNT 5.2 K/mm3 (4.0-10.0)
[2017-12-01] MEDS: VANCOMYCIN 1,000 MG in DEXTROSE 5%-WATER - 250 ML IVPB SCH ×2 (00:02→14:34)
[2017-12-01] MEDS ORDERED: DEXTROSE 5%-WATER - 50 ML IVPB ONE ×2 (01:57→09:11)
[2017-12-01] MEDS ORDERED: PIPERACILLIN/TAZOBACTAM 3.375 GM VIAL IVPB ONE ×3 (01:57→17:35)
[2017-12-01] MEDS: PIPERACILLIN/TAZOB 3.375 GM 3.375 GM in DEXTROSE 5%-WATER - 50 ML IVPB SCH ×3 (02:01→17:49)
[2017-12-01 07:12] LABS: BASO % 0.7 % (0-2.0); EOS % 11.3 % (0-4.5); HEMATOCRIT 31.4 % (32.4-45.2); HEMOGLOBIN 10.4 GM/dL (10.7-15.3); LYMPH % 28.2 % (8-40); MCH 28.7 pg (25.7-33.7); MCHC 33.1 g/dl (32.0-36.0); MEAN CELL VOLUME 86.6 fl (80-96); MEAN PLT VOLUME 7.2 fl (7.5-11.1); MONO % 12.3 % (3.8-10.2); NEUT % 47.5 % (42.8-82.8); PLATELET COUNT 353 K/MM3 (134-434); RBC 3.63 M/mm3 (3.60-5.2); RDW 12.6 % (11.6-15.6); WHITE BLOOD COUNT 4.9 K/mm3 (4.0-10.0)
[2017-12-01] MEDS ORDERED: MORPHINE SULFATE 2 MG/ML VIAL IVPUSH ONE (08:00)
[2017-12-01 08:41] LABS: CHLORIDE 90 mmol/L (98-107); POTASSIUM 4.4 mmol/L (3.5-5.1); SODIUM 128 mmol/L (136-145)
[2017-12-01 09:05] LABS: ALBUMIN 4.1 g/dl (3.4-5.0); ALK PHOS 83 U/L (45-117); ANION GAP 12 (8-16); BILIRUBIN,TOTAL 0.6 mg/dL (0.2-1.0); BLOOD UREA NITROGEN 27 mg/dL (7-18); CALCIUM 9.5 mg/dL (8.5-10.1); CO2 26 mmol/L (21-32); GLUCOSE,RANDOM 98 mg/dL (74-106); PHOSPHOROUS 3.9 mg/dL (2.5-4.9); SGOT/AST 17 U/L (15-37); SGPT/ALT 19 U/L (12-78)
--- NOTE | 2017-12-01 09:16 | PN ---
Progress Note (short form) - Note Progress Note: Patient being followed for right foot ischemia with new wounds. Scheduled for OR. +chronic right foot wound, new wounds right foot, +localized cellulitis, + ischemic right foot, chronic wound ischemia pvd Discussed with Dr. Gold. Patient agrees to stay overnight for evaluation and treatment. ID on case. Santyl dressing chjanges till then. Will foillow and decide about DC tomorrow after todays procedure.
[2017-12-01] MEDS: ASPIRIN 81 MG CHEWABLE TABLETS PO SCH (09:34)
[2017-12-01] MEDS: LOSARTAN POTASSIUM 50 MG TABLET (FP) PO SCH (09:34)
[2017-12-01] MEDS: ENOXAPARIN NA (PORCINE) 40 MG/0.4 ML DISP.SYRIN SQ SCH (09:35)
[2017-12-01] MEDS: FUROSEMIDE 20 MG TABLET (FP) PO SCH (09:43)
[2017-12-01] MEDS: HYDROCHLOROTHIAZIDE 12.5 MG CAPSULE (FP) PO SCH (09:43)
[2017-12-01] MEDS ORDERED: HEPARIN NA (PORCINE) 5,000 UNITS/ML 1ML VIAL ONE (09:52)
[2017-12-01] MEDS ORDERED: LIDOCAINE HCL 1%, 10 MG/ML (20ML VIAL) ONE (09:52)
[2017-12-01] MEDS: COLLAGENASE CLOSTRIDIUM HIST. 30 GRAMS TUBE TP SCH ×2 (10:10→17:08)
[2017-12-01] MEDS ORDERED: ONDANSETRON 4 MG/2 ML VIAL IVPUSH PRN ×2 (10:19→12:47)
[2017-12-01] MEDS ORDERED: PROMETHAZINE HCL 25 MG/1 ML VIAL IVPUSH PRN (10:19)
[2017-12-01] MEDS ORDERED: MIDAZOLAM HCL 2 MG/2 ML SINGLE DOSE VIAL ONE (10:30)
[2017-12-01] MEDS ORDERED: PROPOFOL 20 ML ONE ×2 (10:30→11:03)
[2017-12-01] MEDS ORDERED: SODIUM CHLORIDE 1,000 ML IV SCH ×2 (10:30→12:47)
[2017-12-01] MEDS ORDERED: LIDOCAINE HCL/PF 2% SDV 5ML VIAL ONE (10:42)
[2017-12-01] MEDS ORDERED: METOPROLOL TARTRATE 5 MG/5 ML VIAL ONE (11:30)
[2017-12-01] MEDS ORDERED: LIDOCAINE HCL 1%, 10 MG/ML (20ML VIAL) PNB ONE (11:30)
--- NOTE | 2017-12-01 11:35 | OP ---
Operative Note - Note: Operative Date: 12/01/17 Pre-Operative Diagnosis: right foot wound Operation: Aortogram, RLE angiogram, SFA angioplasty with stent placement. Findings: Adductor canal 75% stenosis in sfa Post-Operative Diagnosis: Same as Pre-op Surgeon: Dennis Gold Anesthesia: Fractional Estimated Blood Loss (mls): 50 Operative Report Dictated: Yes
[2017-12-01] MEDS ORDERED: IOHEXOL 300 MG/ML INFUS..BTL IV ONE (11:38)
[2017-12-01] MEDS ORDERED: LABETALOL HCL 5 MG/1 ML (100MG/20 ML VIAL) IVPUSH ONE (11:48)
[2017-12-01] MEDS ORDERED: traMADol HCL 50 MG TABLET PO PRN (12:47)
[2017-12-01] MEDS ORDERED: ACETAMINOPHEN 325 MG TABLET (FP) PO PRN (12:47)
[2017-12-01] MEDS ORDERED: PROMETHAZINE HCL 25 MG/1 ML VIAL IVPB PRN (12:47)
[2017-12-01] MEDS: CLOPIDOGREL BISULFATE 75 MG TABLET (FP) PO SCH (15:32)
--- NOTE | 2017-12-01 16:17 | PN ---
Teaching Attending Note Name of Resident: Ida Becker ATTENDING PHYSICIAN STATEMENT I saw and evaluated the patient. I reviewed the resident's note and discussed the case with the resident. I agree with the resident's findings and plan as documented with exceptions below. SUBJECTIVE: patient seen and examined. some bleed from left groin site earlier, now stopped. no other complaints. OBJECTIVE: Vital Signs Period Temp Pulse Resp BP Sys/Mcgill Pulse Ox Last 24 Hr 97.7 F-98.8 F 70-100 16-20 100-191/61-99 98-100 Intake & Output 11/28/17 11/29/17 11/30/17 12/01/17 23:59 23:59 23:59 23:59 Intake Total 850 750 Output Total 2000 Balance 850 -1250 Weight 157 lb General: lying in bed in no acute distress Extremities: RLE dressing. Left groin with no active bleed, scant dried blood Home Medications Medication Instructions Recorded Furosemide 20 mg PO DAILY 07/12/17 Losartan/Hydrochlorothiazide 1 tab PO DAILY 07/12/17 [Losartan-Hctz 100-12.5 mg Tab] Metoprolol Succinate 50 mg PO DAILY 07/12/17 Terbinafine HCl 250 mg PO DAILY 07/12/17 Tramadol HCl 50 mg PO DAILY PRN 07/12/17 Aspirin [ASA -] 1 tab PO DAILY 09/20/17 Mupirocin Ointment [Bactroban 2% 1 applic TP DAILY #1 applic 11/15/17 Ointment -] Active Medications Acetaminophen (Tylenol -) 650 mg PO Q4H PRN PRN Reason: PAIN LEVEL 1 - 3 Aspirin (Asa -) 81 mg PO DAILY [facility] Clopidogrel Bisulfate (Plavix -) 75 mg PO DAILY [facility] Last Admin: 12/01/17 15:32 Dose: Not Given Collagenase (Santyl -) 1 applic TP DAILY [facility] Enoxaparin Sodium (Lovenox -) 40 mg SQ DAILY [facility] Fentanyl (Sublimaze Injection -) 50 mcg IVPUSH [id number] PRN PRN Reason: PAIN-PACU ORDER X 4 DOSES ONLY Last Admin: 12/01/17 13:25 Dose: 50 mcg Sodium Chloride (Normal Saline -) 1,000 mls @ 125 mls/hr IV ASDIR [facility] Last Admin: 12/01/17 14:45 Dose: 0 mls Vancomycin HCl (Vancomycin 1 Gm Premix -) 1 gm in 200 mls @ 166.667 mls/hr IVPB Q12H [facility]; Protocol Piperacillin Sod/Tazobactam (Sod 3.375 gm/ Dextrose) 50 mls @ 100 mls/hr IVPB Q8H-IV [facility]; Protocol Losartan Potassium (Cozaar -) 100 mg PO DAILY [facility] Metoprolol Succinate (Toprol Xl -) 50 mg PO DAILY [facility] Ondansetron HCl (Zofran Injection) 4 mg IVPUSH Q6H PRN PRN Reason: NAUSEA AND/OR VOMITING Promethazine HCl (Phenergan Injection -) 12.5 mg IVPB Q6H PRN PRN Reason: NAUSEA-FOR RESCUE AFTER 15 MIN Tramadol HCl (Ultram -) 50 mg PO Q24H PRN PRN Reason: PAIN LEVEL 4 - 6 Laboratory Results - last 24 hr 11/30/17 12/01/17 12/01/17 17:30 06:00 06:00 WBC 5.2 4.9 RBC 3.38 L 3.63 Hgb 9.9 L 10.4 L Hct 29.3 L 31.4 L MCV 86.6 86.6 MCH 29.2 28.7 MCHC 33.7 33.1 RDW 12.8 12.6 Plt Count 351 353 MPV 7.7 7.2 L Absolute Neuts (auto) 2.3 Neutrophils % 47.5 Lymphocytes % 28.2 Monocytes % 12.3 H Eosinophils % 11.3 H Basophils % 0.7 Nucleated RBC % 0 Sodium 128 L Potassium 4.4 Chloride 90 L Carbon Dioxide 26 Anion Gap 12 BUN 27 H Creatinine 1.0 Creat Clearance w eGFR 53.62 Random Glucose 98 Calcium 9.5 Phosphorus 3.9 Magnesium 2.0 Total Bilirubin 0.6 AST 17 ALT 19 Alkaline Phosphatase 83 Total Protein 8.0 Albumin 4.1 Microbiology 11/29/17 20:26 Foot - Right Gram Stain - Final 11/29/17 20:26 Foot - Right Wound Culture - Preliminary Non Lactose Fermenting Gnb Diphtheroid/Corynebacterium 11/29/17 20:59 Blood - Peripheral Venous Blood Culture - Preliminary NO GROWTH OBTAINED AFTER 24 HOURS, INCUBATION TO CONTINUE FOR 4 DAYS. 11/29/17 20:26 Blood - Peripheral Venous Blood Culture - Preliminary NO GROWTH OBTAINED AFTER 24 HOURS, INCUBATION TO CONTINUE FOR 4 DAYS. ASSESSMENT AND PLAN: 77 yof with PMhx of PAD, HTN, chronic LE edema, right 3rd toe partial amputation her with righ foot infected ulcer and PAD -Right foot infected ulcer with cellulitis -PAD s/p Aortogram, RLE angiogram, SFA angioplasty with stent placement 12/01 -HTN -Hypovolumic hyponatremia Plan: ID input noted, zosyn/vancomycin. Vascular surgery input noted, wound care. podiatry input noted Hold HCTZ/lasix,continue metoprolol/losartan DVTPPX with lovenox Dispo planning pending vascular surgery and podiatry recs and home VNS arrangements. Plan discussed with patient in detail, all questions answered.
[2017-12-02] MEDS: VANCOMYCIN 1 GM PREMIX - 1 GM/200 ML BAG IVPB SCH ×2 (00:41→12:06)
[2017-12-02] MEDS ORDERED: DEXTROSE 5%-WATER - 50 ML IVPB ONE ×2 (01:07→09:09)
[2017-12-02] MEDS ORDERED: PIPERACILLIN/TAZOBACTAM 3.375 GM VIAL IVPB ONE ×2 (01:07→09:09)
[2017-12-02] MEDS: PIPERACILLIN/TAZOB 3.375 GM 3.375 GM in DEXTROSE 5%-WATER - 50 ML IVPB SCH ×2 (01:26→09:12)
[2017-12-02] MEDS ORDERED: MORPHINE SULFATE 2 MG/ML VIAL IM ONE (03:49)
[2017-12-02] MEDS: CLOPIDOGREL BISULFATE 75 MG TABLET (FP) PO SCH (09:11)
[2017-12-02] MEDS: COLLAGENASE CLOSTRIDIUM HIST. 30 GRAMS TUBE TP SCH (09:19)
[2017-12-02] MEDS ORDERED: LOSARTAN POTASSIUM 50 MG TABLET (FP) PO SCH (10:00)
[2017-12-02] MEDS ORDERED: ASPIRIN 81 MG CHEWABLE TABLETS PO SCH (10:00)
[2017-12-02] MEDS ORDERED: ENOXAPARIN NA (PORCINE) 40 MG/0.4 ML DISP.SYRIN SQ SCH (10:00)
--- NOTE | 2017-12-02 13:21 | PN ---
Progress Note, Physician History of Present Illness: S/P LE angiogram, SFA angioplasty/ stent reports less foot / swelling No wound drainage No c/o fever/ chills BC (-) Wound c/s Enterobacter - Current Medication List Current Medications: Active Medications Acetaminophen (Tylenol -) 650 mg PO Q4H PRN PRN Reason: PAIN LEVEL 1 - 3 Aspirin (Asa -) 81 mg PO DAILY [facility] Last Admin: 12/02/17 09:12 Dose: 81 mg Clopidogrel Bisulfate (Plavix -) 75 mg PO DAILY [facility] Last Admin: 12/02/17 09:11 Dose: 75 mg Collagenase (Santyl -) 1 applic TP DAILY [facility] Last Admin: 12/02/17 09:19 Dose: 1 applic Enoxaparin Sodium (Lovenox -) 40 mg SQ DAILY [facility] Last Admin: 12/02/17 09:12 Dose: 40 mg Sodium Chloride (Normal Saline -) 1,000 mls @ 125 mls/hr IV ASDIR [facility] Last Admin: 12/01/17 14:45 Dose: 0 mls Vancomycin HCl (Vancomycin 1 Gm Premix -) 1 gm in 200 mls @ 166.667 mls/hr IVPB Q12H [facility]; Protocol Last Admin: 12/02/17 12:06 Dose: 166.667 mls/hr Piperacillin Sod/Tazobactam (Sod 3.375 gm/ Dextrose) 50 mls @ 100 mls/hr IVPB Q8H-IV [facility]; Protocol Last Admin: 12/02/17 09:12 Dose: 100 mls/hr Losartan Potassium (Cozaar -) 100 mg PO DAILY [facility] Last Admin: 12/02/17 09:11 Dose: 100 mg Metoprolol Succinate (Toprol Xl -) 50 mg PO DAILY [facility] Last Admin: 12/02/17 09:11 Dose: 50 mg Ondansetron HCl (Zofran Injection) 4 mg IVPUSH Q6H PRN PRN Reason: NAUSEA AND/OR VOMITING Promethazine HCl (Phenergan Injection -) 12.5 mg IVPB Q6H PRN PRN Reason: NAUSEA-FOR RESCUE AFTER 15 MIN Tramadol HCl (Ultram -) 50 mg PO Q24H PRN PRN Reason: PAIN LEVEL 4 - 6 Last Admin: 12/01/17 17:53 Dose: 50 mg - Objective Vital Signs: Vital Signs Temperature 97.8 F 12/02/17 09:00 Pulse Rate 93 H 12/02/17 09:00 Respiratory Rate 18 12/02/17 09:00 Blood Pressure 133/69 12/02/17 09:00 O2 Sat by Pulse Oximetry (%) 96 12/01/17 21:00 Constitutional: Yes: No Distress Eyes: Yes: Conjunctiva Clear Cardiovascular: Yes: Regular Rate and Rhythm, S1, S2 Respiratory: Yes: CTA Bilaterally Gastrointestinal: Yes: Normal Bowel Sounds, Soft. No: Tenderness Extremities: Yes: Other (R foot with superficial ulceration at toe amputation site, extending to dorsum) Labs: CBC, BMP 12/01/17 06:00 12/01/17 06:00 INR, PTT INR 1.11 (0.82-1.09) 11/30/17 06:30 Assessment/Plan Infected foot wound S/P amputation of toe Peripheral vascular disease Substitute po levaquin 500mg qd x7d Follow up [facility]
--- NOTE | 2017-12-02 13:55 | PN ---
Progress Note (short form) - Note Progress Note: POD#1 +resolving new wounds chronic wound looking better, +resolving localized cellulitis, warm right foot, chronic wound ischemia pvd Patient can go home if ok with Medicine and ID. Can follow for foot wound on Tuesday in [facility]. Dressing removed. Left open for ID to evaluate. Will follow till dc.
[2017-12-02 14:49] VITALS: BP 143/71; PULSE 90; TEMP 97.4
--- NOTE | 2017-12-02 14:52 | DS ---
Physical Exam: SUBJECTIVE: Patient seen and examined. Had angiography with R SFA stent placement yesterday (12/01/17). No fever, pain controlled with meds. Sitting up eating. OBJECTIVE: Vital Signs Period Temp Pulse Resp BP Sys/Mcgill Pulse Ox Last 24 Hr 97.4 F-98.7 F 73-93 18-20 100-150/55-75 96-98 Vital Signs Temp 97.4 F L 12/02/17 14:48 Pulse 90 12/02/17 14:48 Resp 18 12/02/17 14:48 BP 143/71 12/02/17 14:48 Pulse Ox 96 12/01/17 21:00 Intake & Output 12/01/17 12/02/17 12/02/17 23:59 11:59 23:59 Intake Total 1425 1750 350 Output Total 2000 Balance -575 1750 350 Intake: IV 875 1550 Normal Saline - 1,000 ml 500 300 @ 125 mls/hr IV ASDIR [facility] Rx#:[id number] saline lock 375 1250 IVPB 50 Oral 500 200 350 Output: Urine 1999 Other: Voiding Method Toilet Toilet # Unmeasured Voids Void 1 1 1 Bowel Movement No No Intake & Output 11/29/17 11/30/17 12/01/17 12/02/17 23:59 23:59 23:59 23:59 Intake Total 850 2175 2100 Output Total 1999 Balance 731 269 5541 Weight 71.214 kg PHYSICAL EXAM GENERAL: The patient is awake, alert, and fully oriented, in no acute distress. LUNGS: Breath sounds equal, clear to auscultation bilaterally, no wheezes, no crackles HEART: Regular rate and rhythm, S1, S2 without murmur. ABDOMEN: Soft, nontender, nondistended, normoactive bowel sounds EXTREMITIES: R dorsal foot ulcer, from base of amputated 3rd toe proximally about 3-4cm, yellowish base. DP+, warm feet bilaterally NEUROLOGICAL: Cranial nerves II through XII grossly intact. Normal speech, gait not observed. LABS Laboratory Last Values WBC 4.9 K/mm3 (4.0-10.0) 12/01/17 06:00 RBC 3.63 M/mm3 (3.60-5.2) 12/01/17 06:00 Hgb 10.4 GM/dL (10.7-15.3) L 12/01/17 06:00 Hct 31.4 % (32.4-45.2) L 12/01/17 06:00 MCV 86.6 fl (80-96) 12/01/17 06:00 MCH 28.7 pg (25.7-33.7) 12/01/17 06:00 MCHC 33.1 g/dl (32.0-36.0) 12/01/17 06:00 RDW 12.6 % (11.6-15.6) 12/01/17 06:00 Plt Count 353 K/MM3 (134-434) 12/01/17 06:00 MPV 7.2 fl (7.5-11.1) L 12/01/17 06:00 Absolute Neuts (auto) 2.3 # 12/01/17 06:00 Neutrophils % 47.5 % (42.8-82.8) 12/01/17 06:00 Lymphocytes % 28.2 % (8-40) 12/01/17 06:00 Monocytes % 12.3 % (3.8-10.2) H 12/01/17 06:00 Eosinophils % 11.3 % (0-4.5) H 12/01/17 06:00 Basophils % 0.7 % (0-2.0) 12/01/17 06:00 Nucleated RBC % 0 % (0-0) 12/01/17 06:00 ESR 34 mm/hr (0-30) H 11/30/17 06:30 PT with INR 12.50 SEC (9.7-13.0) 11/30/17 06:30 INR 1.11 (0.82-1.09) 11/30/17 06:30 PTT (Actin FS) 33.5 SECONDS (25.2-36.5) 11/30/17 06:30 Sodium 128 mmol/L (136-145) L 12/01/17 06:00 Potassium 4.4 mmol/L (3.5-5.1) 12/01/17 06:00 Chloride 90 mmol/L (98-107) L 12/01/17 06:00 Carbon Dioxide 26 mmol/L (21-32) 12/01/17 06:00 Anion Gap 12 (8-16) 12/01/17 06:00 BUN 27 mg/dL (7-18) H 12/01/17 06:00 Creatinine 1.0 mg/dL (0.55-1.02) 12/01/17 06:00 Creat Clearance w eGFR 53.62 (>60) 12/01/17 06:00 Random Glucose 98 mg/dL (74-106) 12/01/17 06:00 Lactic Acid 2.0 mmol/L (0.0-2.0) 11/29/17 20:26 Calcium 9.5 mg/dL (8.5-10.1) 12/01/17 06:00 Phosphorus 3.9 mg/dL (2.5-4.9) 12/01/17 06:00 Magnesium 2.0 mg/dL (1.8-2.4) 12/01/17 06:00 Total Bilirubin 0.6 mg/dL (0.2-1.0) 12/01/17 06:00 AST 17 U/L (15-37) 12/01/17 06:00 ALT 19 U/L (12-78) 12/01/17 06:00 Alkaline Phosphatase 83 U/L (45-117) 12/01/17 06:00 Total Protein 8.0 g/dl (6.4-8.2) 12/01/17 06:00 Albumin 4.1 g/dl (3.4-5.0) 12/01/17 06:00 Urine Color Straw 11/29/17 17:16 Urine Appearance Clear 11/29/17 17:16 Urine pH 5.0 (5.0-8.0) 11/29/17 17:16 Ur Specific Speer 1.011 (1.001-1.035) 11/29/17 17:16 Urine Protein Negative (NEGATIVE) 11/29/17 17:16 Urine Glucose (UA) Negative (NEGATIVE) 11/29/17 17:16 Urine Ketones Negative (NEGATIVE) 11/29/17 17:16 Urine Blood Negative (NEGATIVE) 11/29/17 17:16 Urine Nitrite Negative (NEGATIVE) 11/29/17 17:16 Urine Bilirubin Negative (<2.0 mg/dL) 11/29/17 17:16 Urine Urobilinogen Negative mg/dL (0.2-1.0) 11/29/17 17:16 Ur Leukocyte Esterase Negative (NEGATIVE) 11/29/17 17:16 Blood Type O POSITIVE 11/29/17 17:02 Antibody Screen Negative 11/29/17 17:02 Microbiology 11/29/17 20:59 Blood - Peripheral Venous Blood Culture - Preliminary NO GROWTH OBTAINED AFTER 72 HOURS, INCUBATION TO CONTINUE FOR 2 DAYS. 11/29/17 20:26 Blood - Peripheral Venous Blood Culture - Preliminary NO GROWTH OBTAINED AFTER 72 HOURS, INCUBATION TO CONTINUE FOR 2 DAYS. 11/29/17 20:26 Foot - Right Gram Stain - Final 11/29/17 20:26 Foot - Right Wound Culture - Final Enterobacter Cloacae Diphtheroid/Corynebacterium CXR - No acute pathology noted. Emphysematous changes appreciated BL. Ambulatory Orders Furosemide 20 mg PO DAILY 07/12/17 Metoprolol Succinate 50 mg PO DAILY 07/12/17 Terbinafine HCl 250 mg PO DAILY 07/12/17 Tramadol HCl 50 mg PO DAILY PRN 07/12/17 Aspirin [ASA -] 1 tab PO DAILY 09/20/17 Mupirocin Ointment [Bactroban 2% Ointment -] 1 applic TP DAILY #1 applic Clopidogrel Bisulfate [Clopidogrel] 75 mg PO DAILY #30 tablet 12/02/17 Collagenase Clostridium Hist. [Santyl -] 1 applic TP DAILY tube 12/02/17 Hydrochlorothiazide [Hctz -] 12.5 mg PO DAILY cap 12/02/17 Levofloxacin [Levaquin] 500 mg PO DAILY #7 tablet 12/02/17 Losartan Potassium [Cozaar -] 100 mg PO DAILY #30 tablet 12/02/17 Losartan Potassium [Cozaar -] 100 mg PO DAILY #30 tablet 12/02/17 Miscellaneous Medical Supply [Outpatient Order] 1 each ASDIR #1 misc HOSPITAL COURSE: Date of Admission:11/29/17 Date of Discharge: 12/02/17 ASSESSMENT/PLAN: 77 yo woman with pmh of PAD, HTN, chronic LE edema who presents from podiatry clinic due to purulent drainage and erythema of chronic 3rd digit wound from prior resection Jun 2017. Pt on vanc/zosyn and consult Dr. Gold for pre-op evaluation. #R foot cellulitis secondary to PAD, now s/p angiography with R SFA stent placement (12/01/17). Received vanc/zosyn as in pt, discharged on levaquin for 7 days. Now with stronger DP pulses on R. Cont wound dressing with santyl daily. To follow up as an outpatient on Tuesday12/09/[address] clinic with Dr Sanchez and follow Dr Gold. Pt declined VNS or SNF, has help from family. Requested a rollator walker with prescriptions sent. #HTN Pt cont Metoprolol 50mg daily and Losartan 100mg, we discontinued HCTZ. She continued home furosemide. She is to follow her primary doctor in one week. Minutes to complete discharge: 40 Discharge Summary Reason For Visit: LOCAL INFECTION OF WOUND Current Active Problems PVD (peripheral vascular disease) (Acute) Wound infection (Acute) Condition: Improved - Instructions Diet, Activity, Other Instructions: You were seen for non healing diabetic ulcer on your right foot from the point of previous amputation continue to dress the wound daily with santyl Call to make an appointment for Tuesday12/09/17 at the wound center We are giving you a prescription for a rollator walker you got angioplasty and stent placement YOU HAVE BEEN STARTED ON PLAVIX, TAKE ONE DAILY, DO NOT STOP IT IF YOU HAVE ANY BLEEDING OR PROBLEMS, RETURN TO THE NEAREST EMERGENCY ROOM you are going home on oral antibiotics-levaquin take for 7 days We have discontinued your hydrochlorothiazide for high blood pressure Please stop your combination medicine losartan/HCTZ You are provided with a script for losartan 100 mg daily , take as directed recommend home BP monitoring till next visit with your doctor and notify your doctor if SBP (upper BP) persistently > 140 noted. Also advise follow up blood work (CBC, BMP) with your doctor in 1 week. Continue your home medications Follow up with your primary care doctor in one week If you think your symptoms are not getting better, with foul smelling discharge , fever or chills return to the nearest emergency Referrals: Dennis Gold MD [Staff Physician] - Naman Sanchez DPM [Staff Physician] - 12/06/17 Disposition: HOME - Home Medications Comprehensive Discharge Medication List: Ambulatory Orders Furosemide 20 mg PO DAILY 07/12/17 Losartan/Hydrochlorothiazide [Losartan-Hctz 100-12.5 mg Tab] 1 tab PO DAILY Metoprolol Succinate 50 mg PO DAILY 07/12/17 Terbinafine HCl 250 mg PO DAILY 07/12/17 Tramadol HCl 50 mg PO DAILY PRN 07/12/17 Aspirin [ASA -] 1 tab PO DAILY 09/20/17 Mupirocin Ointment [Bactroban 2% Ointment -] 1 applic TP DAILY #1 applic Levofloxacin [Levaquin] 500 mg PO DAILY #7 tablet 12/02/17 Miscellaneous Medical Supply [Outpatient Order] 1 each ASDIR #1 misc This patient is new to me today: No Emergency Visit: Yes ED Registration Date: 11/29/17 Care time: The patient presented to the Emergency Department on the above date and was hospitalized for further evaluation of their emergent condition. Critical Care patient: No - Discharge Referral Referred to [facility] Med P.C.: Yes Physician Referral: Dennis Gold DO ([facility])
--- NOTE | 2017-12-02 15:29 | PN ---
Physical Exam: SUBJECTIVE: Patient seen and examined. NPO for stent so did not receive pain meds. c/o pain R LLE OBJECTIVE: Vital Signs Period Temp Pulse Resp BP Sys/Mcgill Pulse Ox Last 24 Hr 97.4 F-98.7 F 73-93 18-20 100-150/55-75 96 GENERAL: The patient is awake, alert, and fully oriented. ENT: moist mucous membranes LUNGS: Breath sounds equal, clear to auscultation bilaterally, no wheezes, no crackles HEART: Regular rate and rhythm, S1, S2 without murmur. ABDOMEN: Soft, nontender, nondistended, normoactive bowel sounds EXTREMITIES: R LE dorsal foot ulcer with clean dry dressing NEUROLOGICAL: AAO x3, no facial droop, no lateralizing signs. Normal speech Laboratory Last Values WBC 4.9 K/mm3 (4.0-10.0) 12/01/17 06:00 RBC 3.63 M/mm3 (3.60-5.2) 12/01/17 06:00 Hgb 10.4 GM/dL (10.7-15.3) L 12/01/17 06:00 Hct 31.4 % (32.4-45.2) L 12/01/17 06:00 MCV 86.6 fl (80-96) 12/01/17 06:00 MCH 28.7 pg (25.7-33.7) 12/01/17 06:00 MCHC 33.1 g/dl (32.0-36.0) 12/01/17 06:00 RDW 12.6 % (11.6-15.6) 12/01/17 06:00 Plt Count 353 K/MM3 (134-434) 12/01/17 06:00 MPV 7.2 fl (7.5-11.1) L 12/01/17 06:00 Absolute Neuts (auto) 2.3 # 12/01/17 06:00 Neutrophils % 47.5 % (42.8-82.8) 12/01/17 06:00 Lymphocytes % 28.2 % (8-40) 12/01/17 06:00 Monocytes % 12.3 % (3.8-10.2) H 12/01/17 06:00 Eosinophils % 11.3 % (0-4.5) H 12/01/17 06:00 Basophils % 0.7 % (0-2.0) 12/01/17 06:00 Nucleated RBC % 0 % (0-0) 12/01/17 06:00 ESR 34 mm/hr (0-30) H 11/30/17 06:30 PT with INR 12.50 SEC (9.7-13.0) 11/30/17 06:30 INR 1.11 (0.82-1.09) 11/30/17 06:30 PTT (Actin FS) 33.5 SECONDS (25.2-36.5) 11/30/17 06:30 Sodium 128 mmol/L (136-145) L 12/01/17 06:00 Potassium 4.4 mmol/L (3.5-5.1) 12/01/17 06:00 Chloride 90 mmol/L (98-107) L 12/01/17 06:00 Carbon Dioxide 26 mmol/L (21-32) 12/01/17 06:00 Anion Gap 12 (8-16) 12/01/17 06:00 BUN 27 mg/dL (7-18) H 12/01/17 06:00 Creatinine 1.0 mg/dL (0.55-1.02) 12/01/17 06:00 Creat Clearance w eGFR 53.62 (>60) 12/01/17 06:00 Random Glucose 98 mg/dL (74-106) 12/01/17 06:00 Lactic Acid 2.0 mmol/L (0.0-2.0) 11/29/17 20:26 Calcium 9.5 mg/dL (8.5-10.1) 12/01/17 06:00 Phosphorus 3.9 mg/dL (2.5-4.9) 12/01/17 06:00 Magnesium 2.0 mg/dL (1.8-2.4) 12/01/17 06:00 Total Bilirubin 0.6 mg/dL (0.2-1.0) 12/01/17 06:00 AST 17 U/L (15-37) 12/01/17 06:00 ALT 19 U/L (12-78) 12/01/17 06:00 Alkaline Phosphatase 83 U/L (45-117) 12/01/17 06:00 Total Protein 8.0 g/dl (6.4-8.2) 12/01/17 06:00 Albumin 4.1 g/dl (3.4-5.0) 12/01/17 06:00 Urine Color Straw 11/29/17 17:16 Urine Appearance Clear 11/29/17 17:16 Urine pH 5.0 (5.0-8.0) 11/29/17 17:16 Ur Specific [place] 1.011 (1.001-1.035) 11/29/17 17:16 Urine Protein Negative (NEGATIVE) 11/29/17 17:16 Urine Glucose (UA) Negative (NEGATIVE) 11/29/17 17:16 Urine Ketones Negative (NEGATIVE) 11/29/17 17:16 Urine Blood Negative (NEGATIVE) 11/29/17 17:16 Urine Nitrite Negative (NEGATIVE) 11/29/17 17:16 Urine Bilirubin Negative (<2.0 mg/dL) 11/29/17 17:16 Urine Urobilinogen Negative mg/dL (0.2-1.0) 11/29/17 17:16 Ur Leukocyte Esterase Negative (NEGATIVE) 11/29/17 17:16 Blood Type O POSITIVE 11/29/17 17:02 Antibody Screen Negative 11/29/17 17:02 Active Medications Generic Name Dose Route Start Last Admin Trade Name Freq PRN Reason Stop Dose Admin Acetaminophen 650 mg 12/01/17 12:47 12/02/17 14:04 Tylenol - PO 650 mg Q4H PRN Administration PAIN LEVEL 1 - 3 Aspirin 81 mg 12/02/17 10:00 12/02/17 09:12 Asa - PO 81 mg DAILY [facility] Administration Clopidogrel Bisulfate 75 mg 12/01/17 11:45 12/02/17 09:11 Plavix - PO 75 mg DAILY [facility] Administration Collagenase 1 applic 12/02/17 10:00 12/02/17 09:19 Santyl - TP 1 applic DAILY [facility] Administration Enoxaparin Sodium 40 mg 12/02/17 10:00 12/02/17 09:12 Lovenox - SQ 40 mg DAILY [facility] Administration Sodium Chloride 1,000 mls @ 125 mls/hr 12/01/17 12:47 12/01/17 14:45 Normal Saline - IV 0 mls ASDIR [facility] Administration Vancomycin HCl 1 gm in 200 mls @ 166.667 mls/hr 12/02/17 00:00 12/02/17 12:06 Vancomycin 1 Gm Premix - IVPB 166.667 mls/hr Q12H [facility] Administration Protocol Piperacillin Sod/Tazobactam 50 mls @ 100 mls/hr 12/01/17 18:00 12/02/17 09:12 Sod 3.375 gm/ Dextrose IVPB 100 mls/hr Q8H-IV [facility] Administration Protocol Losartan Potassium 100 mg 12/02/17 10:00 12/02/17 09:11 Cozaar - PO 100 mg DAILY [facility] Administration Metoprolol Succinate 50 mg 12/02/17 10:00 12/02/17 09:11 Toprol Xl - PO 50 mg DAILY [facility] Administration Ondansetron HCl 4 mg 12/01/17 12:47 Zofran Injection IVPUSH Q6H PRN NAUSEA AND/OR VOMITING Promethazine HCl 12.5 mg 12/01/17 12:47 Phenergan Injection - IVPB Q6H PRN NAUSEA-FOR RESCUE AFTER 15 MIN Tramadol HCl 50 mg 12/01/17 12:47 12/01/17 17:53 Ultram - PO 50 mg Q24H PRN Administration PAIN LEVEL 4 - 6 Microbiology 11/29/17 20:59 Blood - Peripheral Venous Blood Culture - Preliminary NO GROWTH OBTAINED AFTER 72 HOURS, INCUBATION TO CONTINUE FOR 2 DAYS. 11/29/17 20:26 Blood - Peripheral Venous Blood Culture - Preliminary NO GROWTH OBTAINED AFTER 72 HOURS, INCUBATION TO CONTINUE FOR 2 DAYS. 11/29/17 20:26 Foot - Right Gram Stain - Final 11/29/17 20:26 Foot - Right Wound Culture - Final Enterobacter Cloacae Diphtheroid/Corynebacterium CXR - No acute pathology noted. Emphysematous changes appreciated BL. ASSESSMENT/PLAN: 77 yo woman with pmh of PAD, HTN, chronic LE edema who presents from podiatry clinic due to purulent drainage and erythema of chronic 3rd digit wound from prior resection Jun 2017. Pt on vanc/zosyn and consult Dr. Gold for pre-op evaluation. #R foot cellulitis - no wbc count; blood -prelim -ve, wound cultures -as above - XR of R foot - c/w vanc/zosyn for coverage - vascular consult - ESR-34 - Daily dressing changes #HTN - c/w home meds-metoprolol 50mg daily #PAD - Revascularization of R leg on , 12/[address] Gold - vascular consult #Chronic LE edema - leg elevation - c/w home lasix, #Hyponatremia - 130 on admission - PO hydration - trend Na - consider PO salt tabs if persistent - urine lytes PPX Lovenox FEN PO hydration Daily lytes Dispo For revascularization today Visit type - Emergency Visit Emergency Visit: Yes ED Registration Date: 11/29/17 Care time: The patient presented to the Emergency Department on the above date and was hospitalized for further evaluation of their emergent condition. - New Patient This patient is new to me today: No - Critical Care Critical Care patient: No - Discharge Referral Referred to [facility] Med [facility].: No
== END 2017-12-02 17:13 | disposition home or self-care (01) | DRG 516 ==
LOC: JER 16:12 → J6S 21:05
PROVIDERS: ADMIT Internal Medicine; ATTEND Hospitalist
PROC: 047K34Z Dilation of Right Femoral Artery with Drug-eluting Intraluminal Device, Percutaneous Approach (ICD-10-PCS; principal; 2017-12-01 10:30)
DX: T87.43 Infection of amputation stump, right lower extremity (principal); E87.1 Hypo-osmolality and hyponatremia; N17.9 Acute kidney failure, unspecified; I73.89 Other specified peripheral vascular diseases; B99.8 Other infectious disease; Y83.8 Other surgical procedures as the cause of abnormal reaction of the patient, or of later complication, without mention of misadventure at the time of the procedure; I10 Essential (primary) hypertension; Z89.421 Acquired absence of other right toe(s); E11.9 Type 2 diabetes mellitus without complications; L03.031 Cellulitis of right toe; R60.9 Edema, unspecified; L97.519 Non-pressure chronic ulcer of other part of right foot with unspecified severity
CPT/HCPCS: 11042; 36415; 71045-TC-FY; 76000-TC-FY; 80053; 81003; 82962; 83605; 83735; 84100; 85025; 85027; 85610; 85651; 85730; 86850; 86900; 86901; 87040; 87070; 87077; 87186; 87205; 93005; 93010; 94760; 97116-GP; 97161-GP; 99284-25; G0277; J1644; J7030

== ENCOUNTER 2018-01-26 23:11 | Inpatient (IN) | payer OTHER ==
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
[2018-01-27] MEDS ORDERED: AMPICILLIN NA/SULBACTAM NA 1.5 GM in SODIUM CHLORIDE 100 ML IVPB ONE (00:42)
[2018-01-27 01:09] LABS: BASO % 0.9 % (0-2.0); EOS % 2.1 % (0-4.5); HEMATOCRIT 26.8 % (32.4-45.2); HEMOGLOBIN 8.9 GM/dL (10.7-15.3); LYMPH % 17.4 % (8-40); MCH 28.2 pg (25.7-33.7); MCHC 33.1 g/dl (32.0-36.0); MEAN CELL VOLUME 85.1 fl (80-96); MEAN PLT VOLUME 6.9 fl (7.5-11.1); MONO % 11.2 % (3.8-10.2); NEUT % 68.4 % (42.8-82.8); PLATELET COUNT 530 K/MM3 (134-434); RBC 3.15 M/mm3 (3.60-5.2); RDW 14.1 % (11.6-15.6); WHITE BLOOD COUNT 7.7 K/mm3 (4.0-10.0)
[2018-01-27 01:33] LABS: ALBUMIN 3.3 g/dl (3.4-5.0); ALK PHOS 86 U/L (45-117); ANION GAP 10 (8-16); BILIRUBIN,TOTAL 0.4 mg/dL (0.2-1.0); BLOOD UREA NITROGEN 33 mg/dL (7-18); CALCIUM 9.3 mg/dL (8.5-10.1); CHLORIDE 96 mmol/L (98-107); CO2 27 mmol/L (21-32); CREATININE 1.1 mg/dL (0.55-1.02); GLUCOSE,RANDOM 116 mg/dL (74-106); POTASSIUM 4.4 mmol/L (3.5-5.1); SGOT/AST 14 U/L (15-37); SGPT/ALT 14 U/L (12-78); SODIUM 133 mmol/L (136-145); TOT PROT 7.7 g/dl (6.4-8.2)
[2018-01-27] MEDS ORDERED: ACETAMINOPHEN 325 MG TABLET (FP) PO PRN (03:05)
[2018-01-27] MEDS ORDERED: SODIUM CHLORIDE 1,000 ML IV SCH (03:15)
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
--- NOTE | 2018-01-27 03:40 | HP ---
CHIEF COMPLAINT: bleeding of 4th toe on R PCP: n/s HISTORY OF PRESENT ILLNESS: 77 yo f w/ PMH PAD, HTN, Chronic LE edema, s/p R 3rd toe amputation (june), s /p R SFA stenting presents to the hospital for R foot bleeding that happened earlier today. Patient reports that she was in the shower when she noticed copious amounts of blood coming from the distal right foot from what she believes is near the site of the prior amputation of the 3rd toe. She denies any pain at the site of the toe but reports that it is very dark and says that she is unable to move it. Reports chronic lower extremity edema that may appear slightly worse this evening. States that she was scheduled to have a vascular procedure with Dr. Gold in the morning for the right foot but came to the hospital due to the bleeding. Patient reports getting hyperbaric oxygen treatment every day. Denies any fevers, chills, chest pain, SOB, nausea, vomiting, diarrhea, calf tenderness, foot pain. ER course was notable for: (1) H&H 8.9/26.8 (2) DVT study negative (3) Recent Travel: denies PAST MEDICAL HISTORY: PAD, HTN, Chronic LE edema, s/p R 3rd toe amputation ( june), s/p R SFA stenting PAST SURGICAL HISTORY: R 3rd toe amputation (June) and R SFA stent Social History: Smoking: denies ever Alcohol: denies Drugs: denies Family History: diabetes in parents Allergies No Known Allergies Allergy (Verified 01/26/18 23:15) HOME MEDICATIONS: Home Medications Medication Instructions Recorded Furosemide 20 mg PO DAILY 07/12/17 Metoprolol Succinate 50 mg PO DAILY 07/12/17 Tramadol HCl 50 mg PO DAILY PRN 07/12/17 Aspirin [ASA -] 1 tab PO DAILY 09/20/17 Collagenase Clostridium Hist. 1 applic TP DAILY tube 12/02/17 [Santyl -] Losartan-Hctz 100-25 mg Tab 1 tab PO AM 01/07/18 Clopidogrel Bisulfate [Clopidogrel] 75 mg PO DAILY #30 tablet 01/17/18 REVIEW OF SYSTEMS CONSTITUTIONAL: Absent: fever, chills, diaphoresis, generalized weakness, malaise, loss of appetite, weight change HEENT: Absent: rhinorrhea, nasal congestion, throat pain, throat swelling, difficulty swallowing, mouth swelling, ear pain, eye pain, visual changes CARDIOVASCULAR: Absent: chest pain, syncope, palpitations, irregular heart rate, lightheadedness , peripheral edema RESPIRATORY: Absent: cough, shortness of breath, dyspnea with exertion, orthopnea, wheezing, stridor, hemoptysis GASTROINTESTINAL: Absent: abdominal pain, abdominal distension, nausea, vomiting, diarrhea, constipation, melena, hematochezia GENITOURINARY: Absent: dysuria, frequency, urgency, hesitancy, hematuria, flank pain, genital pain MUSCULOSKELETAL: Wound on R Foot Absent: myalgia, arthralgia, joint swelling, back pain, neck pain SKIN: Absent: rash, itching, pallor HEMATOLOGIC/IMMUNOLOGIC: Absent: easy bleeding, easy bruising, lymphadenopathy, frequent infections ENDOCRINE: Absent: unexplained weight gain, unexplained weight loss, heat intolerance, cold intolerance NEUROLOGIC: Absent: headache, focal weakness or paresthesias, dizziness, unsteady gait, seizure, mental status changes, bladder or bowel incontinence PSYCHIATRIC: Absent: anxiety, depression, suicidal or homicidal ideation, hallucinations. PHYSICAL EXAMINATION Vital Signs - 24 hr 01/26/18 23:13 Temperature 98.1 F Pulse Rate 110 H Respiratory 18 Rate Blood Pressure 149/91 O2 Sat by Pulse 100 Oximetry (%) GENERAL: A&Ox3, no acute distress EYES: PERRLA, EOMI ENT: Moist mucus membranes NECK: No JVD LUNGS: CTA, no wheezes HEART: RRR, systolic murmur 2nd R intercostal space ABDOMEN: Soft, nontender, BS present EXTREMITIES: 1+ pulse appreciated b/l, R foot 3rd toe amputated. R foot large, healing ulcer noted on dorsal surface measuring around 4x4cm, R 4th toe gangrenous in appearance with an open wound on the inferiomedial surface of the toe, no drainage noted. NEUROLOGICAL: Cranial nerves II-XII intact. Laboratory Results - last 24 hr 01/27/18 01/27/18 01/27/18 01:00 01:00 01:00 WBC 7.7 RBC 3.15 L Hgb 8.9 L Hct 26.8 L MCV 85.1 MCH 28.2 MCHC 33.1 RDW 14.1 Plt Count 530 H D MPV 6.9 L Absolute Neuts (auto) 5.3 Neutrophils % 68.4 Lymphocytes % 17.4 Monocytes % 11.2 H Eosinophils % 2.1 Basophils % 0.9 Nucleated RBC % 0 ESR 108 H Sodium Potassium Chloride Carbon Dioxide Anion Gap BUN Creatinine Creat Clearance w eGFR Random Glucose Calcium Total Bilirubin AST ALT Alkaline Phosphatase C-Reactive Protein 6.2 H Total Protein Albumin 01/27/18 01:00 WBC RBC Hgb Hct MCV MCH MCHC RDW Plt Count MPV Absolute Neuts (auto) Neutrophils % Lymphocytes % Monocytes % Eosinophils % Basophils % Nucleated RBC % ESR Sodium 133 L Potassium 4.4 Chloride 96 L Carbon Dioxide 27 Anion Gap 10 BUN 33 H Creatinine 1.1 H Creat Clearance w eGFR 48.04 Random Glucose 116 H Calcium 9.3 Total Bilirubin 0.4 AST 14 L ALT 14 Alkaline Phosphatase 86 C-Reactive Protein Total Protein 7.7 Albumin 3.3 L ASSESSMENT/PLAN: 77 yo f w/ PMH PAD, HTN, Chronic LE edema, s/p R 3rd toe amputation (june), s /p R SFA stenting presents for right foot bleeding and admitted for treatment of gangrenous R 4th toe #Gangrenous Right 4th Toe: toe is not painful and she is unable to move it - -Dr. Gold consultation -ID consult -Podiatry consult -continue ASA and plavix pending vascular consult -IVF w/ NS @ 83cc/hr -tylenol for pain -vancomycin given in ED -will give vancomycin and zosyn #Peripheral Arterial Disease: had procedure planned today -consult vascular -continue ASA/Plavix #Lower Extremity Edema: chronic -DVT study negative -continue lasix #Anemia: chronic -iron studies -retic count #Hypertension: -continue HCTZ 25mg PO daily -continue metoprolol 50 PO daily -continue losartan 100mg PO daily #FEN -IV NS @ 83cc/hr -lytes wnl -low sodium diet #Prophylaxis -heparin subq #Disposition -admit med surg Visit type - Emergency Visit Emergency Visit: Yes ED Registration Date: 01/27/18 Care time: The patient presented to the Emergency Department on the above date and was hospitalized for further evaluation of their emergent condition. - New Patient This patient is new to me today: Yes Date on this admission: 01/27/18 - Critical Care Critical Care patient: No Hospitalist Screening - Colonoscopy Questionnaire Colonoscopy Questionnaire: Colonoscopy Questionnaire - Patient: 50 - 75 years old and never had a screening colonoscopy: Unknown History of colon or rectal polyps, or CA: Unknown History of IBD, Crohn's disease or UC: Unknown History of abdominal radiation therapy as a child: Unknown - Relative: 1 with colon or rectal CA, or polyps at age 60 or younger: Unknown Colon or rectal CA diagnosed at age 45 or younger: Unknown Multiple relatives with colon or rectal CA: Unknown - Outcome: Screening Result: Negative Screen
[2018-01-27] MEDS ORDERED: ACETAMINOPHEN 325 MG TABLET (FP) ONE (04:10)
[2018-01-27] MEDS ORDERED: VANCOMYCIN 1,000 MG in DEXTROSE 5%-WATER - 250 ML IVPB ONE (04:30)
[2018-01-27] MEDS ORDERED: VANCOMYCIN 1 GRAM (PRE-DOCKED) 1,000 MG/250 ML BAG IVPB ONE (04:52)
[2018-01-27] MEDS ORDERED: LOSARTAN HCTZ PO SCH (07:00)
[2018-01-27 08:14] LABS: HEMATOCRIT 24.6 % (32.4-45.2); HEMOGLOBIN 8.2 GM/dL (10.7-15.3); MCH 28.5 pg (25.7-33.7); MCHC 33.6 g/dl (32.0-36.0); MEAN PLT VOLUME 7.1 fl (7.5-11.1); PLATELET COUNT 452 K/MM3 (134-434); RBC 2.89 M/mm3 (3.60-5.2); RDW 14.1 % (11.6-15.6); WHITE BLOOD COUNT 6.9 K/mm3 (4.0-10.0)
[2018-01-27 08:24] LABS: ANION GAP 10 (8-16); BLOOD UREA NITROGEN 30 mg/dL (7-18); CALCIUM 9.3 mg/dL (8.5-10.1); CHLORIDE 98 mmol/L (98-107); CO2 28 mmol/L (21-32); GLUCOSE,RANDOM 101 mg/dL (74-106); MAGNESIUM 2.1 mg/dL (1.8-2.4); POTASSIUM 4.1 mmol/L (3.5-5.1); SODIUM 136 mmol/L (136-145)
[2018-01-27 08:25] LABS: INR 1.3 (0.83-1.09); PROTHROMBIN TIME (PATIENT) 14.7 SEC (9.7-13.0)
--- NOTE | 2018-01-27 09:32 | PN ---
Progress Note (short form) - Note Progress Note: ID consult dictated imp/reccd 77 year old female with chronic nonhealing foot wound with gangrene, PAD, s/p RLE angiogram and angioplasty 01/12 HBO mri times 2 no osteo, no abscess had bleed from her foot wound and came to ED last night no fevers or chills foot has dry gangrene of the toe and a large superficical wound on the dorsal aspect that is foulsmelling for repat angio today suspect this is progression of her vascular disease vanco/zosyn cultures vascular f/u Problem List - Problems (1) Gangrenous toe Code(s): I96 - GANGRENE, NOT ELSEWHERE CLASSIFIED (2) Cellulitis of foot, right Code(s): L03.115 - CELLULITIS OF RIGHT LOWER LIMB (3) PAD (peripheral artery disease) Code(s): I73.9 - PERIPHERAL VASCULAR DISEASE, UNSPECIFIED
[2018-01-27] MEDS ORDERED: HEPARIN NA (PORCINE) 5,000 UNITS/ML 1ML VIAL SQ SCH (10:00)
[2018-01-27] MEDS ORDERED: COLLAGENASE CLOSTRIDIUM HIST. 30 GRAMS TUBE TP SCH (10:00)
[2018-01-27] MEDS ORDERED: LOSARTAN POTASSIUM 50 MG TABLET (FP) PO SCH (10:00)
[2018-01-27] MEDS ORDERED: CLOPIDOGREL BISULFATE 75 MG TABLET (FP) PO SCH (10:00)
[2018-01-27] MEDS ORDERED: ASPIRIN 81 MG CHEWABLE TABLETS PO SCH (10:00)
[2018-01-27] MEDS ORDERED: FUROSEMIDE 20 MG TABLET (FP) PO SCH (10:00)
[2018-01-27] MEDS ORDERED: HYDROCHLOROTHIAZIDE 25 MG TABLET (FP) PO SCH (10:00)
[2018-01-27] MEDS ORDERED: PIPERACILLIN/TAZOB 3.375 GM 3.375 GM in DEXTROSE 5%-WATER - 50 ML IVPB ONE (10:00)
[2018-01-27] MEDS ORDERED: PIPERACILLIN/TAZOBACTAM 3.375 GM VIAL IVPB ONE ×3 (10:38→23:08)
[2018-01-27] MEDS ORDERED: DEXTROSE 5%-WATER - 50 ML IVPB ONE ×3 (10:39→23:08)
[2018-01-27] MEDS ORDERED: MORPHINE SULFATE 2 MG/ML VIAL IVPUSH PRN (10:44)
--- NOTE | 2018-01-27 11:05 | EKG ---
Test Reason : Blood Pressure : / mmHG Vent. Rate : 102 BPM Atrial Rate : 102 BPM P-R Int : 164 ms QRS Dur : 068 ms QT Int : 346 ms P-R-T Axes : 058 030 040 degrees QTc Int : 450 ms POOR DATA QUALITY, INTERPRETATION MAY BE ADVERSELY AFFECTED SINUS TACHYCARDIA Confirmed by JOSE CARLOS JACOBS MD ([id number]) on 01/27/2018 11:05:16 AM Referred By: Confirmed By:JOSE CARLOS JACOBS MD
[2018-01-27] MEDS ORDERED: PT OWN MED DRAWER 7, Y5N ONE (11:21)
[2018-01-27] MEDS ORDERED: MIDAZOLAM HCL 2 MG/2 ML SINGLE DOSE VIAL ONE ×2 (15:10→15:37)
[2018-01-27] MEDS ORDERED: PROPOFOL 20 ML ONE (15:58)
[2018-01-27] MEDS ORDERED: LIDOCAINE HCL 1%, 10 MG/ML (20ML VIAL) PNB ONE (16:16)
--- NOTE | 2018-01-27 16:26 | OP ---
Operative Note - Note: Operative Date: 01/27/18 Pre-Operative Diagnosis: right foot gangrene Operation: attempted right lower extremity angiogram Post-Operative Diagnosis: Same as Pre-op Surgeon: Dennis Gold Anesthesia: Fractional Estimated Blood Loss (mls): 5 Operative Report Dictated: Yes
--- NOTE | 2018-01-27 16:27 | PN ---
Progress Note (short form) - Note Progress Note: Vascular Surgery Attempted right lower ext angiogram via retrograde stick from right DP. However the artery can be cannulated, but it is closed from above and cannot be crossed. At this point -- best option for pt would be a right BKA. Please initiate cardiology clearance for bka early next week Dennis guevara DO
[2018-01-27] MEDS ORDERED: VANCOMYCIN 1 GM PREMIX - 1 GM/200 ML BAG IVPB SCH (17:00)
[2018-01-27] MEDS ORDERED: PIPERACILLIN/TAZOB 3.375 GM 3.375 GM in DEXTROSE 5%-WATER - 50 ML IVPB SCH (18:00)
[2018-01-27] MEDS: PIPERACILLIN/TAZOB 3.375 GM 3.375 GM in DEXTROSE 5%-WATER - 50 ML IVPB SCH (18:06)
[2018-01-27] MEDS: HEPARIN NA (PORCINE) 5,000 UNITS/ML 1ML VIAL SQ SCH (21:29)
[2018-01-27] MEDS: ACETAMINOPHEN 325 MG TABLET (FP) PO PRN (21:30)
--- NOTE | 2018-01-28 00:04 | CONS ---
INFECTIOUS DISEASE CONSULTATION DATE OF CONSULTATION: 01/27/2018 This is a 77-year-old woman recently hospitalized in December. She went home in early January. She has a past medical history of peripheral vascular disease. She is status post amputation of her right 3rd toe in June. She is status post recent arteriogram and angioplasty of the right foot. She was admitted last admission with a nonhealing ulcer on the dorsum of her foot, and she had an MRI done that was negative for any osteomyelitis. She ultimately underwent an angioplasty of her leg and was discharged home. She was treated with a course first of IV antibiotics, followed by oral Levaquin. She now returns because she developed bleeding she reports spontaneously from her foot. She has also been getting hyperbaric treatment. PAST MEDICAL HISTORY: Notable for PAD, hypertension, status post arteriogram with angioplasty. She has a history of chronic lower extremity edema. SURGICAL HISTORY: Notable for amputation of the 3rd toe. ALLERGIES: She has no known drug allergies. MEDICATIONS AT HOME: Tramadol, metoprolol, losartan, hydrochlorothiazide, furosemide, Santyl to the leg, Plavix, and aspirin. SOCIAL HISTORY: She lives in the community. There is no history of any cigarette or substance use. 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 REVIEW OF SYSTEMS: Notable for the fact that she denies any chest pain or abdominal pain. She is eating poorly, but she has no nausea, vomiting, or diarrhea. Of note, on her last admission, she had an MRI of her foot that was negative for osteomyelitis. PHYSICAL EXAMINATION: General: She is awake and alert. Vital Signs: She is afebrile; temperature is 98.7. Pulse of 93, blood pressure 138/60, respiratory rate is 20. HEENT: She is normocephalic. Her eyes are anicteric. Neck: Supple. Lungs: Clear to auscultation. Heart: Regular rate and rhythm. Abdomen: Soft, nontender. She has a well-healed left groin incision at the site of her prior angiogram. Extremities: Notable for a large superficial ulcer on the dorsal surface of her right foot, roughly 4 x 5 cm. She has dry gangrene of the right 4th toe. There is no drainage. The entire area is foul smelling. LABORATORY DATA: Labs are notable for a white count of 6.9, hemoglobin 8.2, platelets of 452. BUN is 30 and creatinine 1. No cultures have been sent. In summary, this is a 77-year-old woman who has dry gangrene of her foot and a large superficial wound on the dorsal aspect that is foul smelling. She is scheduled for repeat angiogram today. I suspect this is progression of her vascular disease. Would treat her at this time with vancomycin and Zosyn. Obtain cultures with vascular followup. Further recommendations to follow based on her clinical course. AMY THOMAS M.D. [id number]
[2018-01-28] MEDS: PIPERACILLIN/TAZOB 3.375 GM 3.375 GM in DEXTROSE 5%-WATER - 50 ML IVPB SCH ×3 (01:25→17:22)
[2018-01-28 06:06] LABS: SERUM IRON SATURATION 11 % (15-55); TOTAL IRON BINDING CAPACITY 202 ug/dL (250-450); UIBC 180 ug/dL (118-369)
--- NOTE | 2018-01-28 07:34 | CONSULT ---
Consult - text type - Consultation Consultation Note: Podiatry Consultation: 77 year old PVD F presented to ED for admission from bleeding to the right foot. Patient well known to wound healing center, under service of Dr. Guevara and Dr. Sanchez. S/p R SFA stent, has progressive vascular changes to the foot. Denies F/V/N/C/SOB/CP. Afebrile VSS. S/p RLE angiogram yesterday with Dr. guevara. PMHx: PVD, HTN, chronic edema Meds: noted ALL: NKMA DAVE: R foot: gangrenous changes of all digits with fibronecrotic patch along the dorsal forefoot and midfoot, significant tenderness to palpation, mild malodor; no purulence, no fluctuance, no soft tissue crepitus, no signs of acute infection. Imp: 77 year old vasculopath with gangrene R foot 1. IV abx 2. Santyl to R foot 3. Plan for BKA R with Dr. Guevara next week. Will discuss with Dr. Sanchez as I am covering this weekend. Thank you for the courtesy of this consultation. Elicia Bernabe DPM
[2018-01-28] MEDS ORDERED: PT OWN MED DRAWER 7, Y5N ONE (09:13)
[2018-01-28] MEDS ORDERED: PIPERACILLIN/TAZOBACTAM 3.375 GM VIAL IVPB ONE ×2 (09:13→17:17)
[2018-01-28] MEDS ORDERED: DEXTROSE 5%-WATER - 50 ML IVPB ONE ×2 (09:13→17:17)
[2018-01-28] MEDS: LOSARTAN POTASSIUM 50 MG TABLET (FP) PO SCH (09:17)
[2018-01-28] MEDS: ASPIRIN 81 MG CHEWABLE TABLETS PO SCH (09:17)
[2018-01-28] MEDS: FUROSEMIDE 20 MG TABLET (FP) PO SCH (09:18)
[2018-01-28] MEDS: HYDROCHLOROTHIAZIDE 25 MG TABLET (FP) PO SCH (09:18)
[2018-01-28] MEDS: CLOPIDOGREL BISULFATE 75 MG TABLET (FP) PO SCH (09:18)
[2018-01-28] MEDS: HEPARIN NA (PORCINE) 5,000 UNITS/ML 1ML VIAL SQ SCH ×2 (09:21→21:07)
[2018-01-28] MEDS: COLLAGENASE CLOSTRIDIUM HIST. 30 GRAMS TUBE TP SCH (09:24)
[2018-01-28] MEDS: MORPHINE SULFATE 2 MG/ML VIAL IVPUSH PRN ×2 (09:25→21:07)
[2018-01-28] MEDS ORDERED: VANCOMYCIN 1 GM PREMIX - 1 GM/200 ML BAG IVPB SCH (10:00)
[2018-01-28] MEDS: VANCOMYCIN 1 GM PREMIX - 1 GM/200 ML BAG IVPB SCH (10:17)
--- NOTE | 2018-01-28 13:49 | PN ---
Progress Note (short form) - Note Progress Note: POD #1 - s/p attempted right lower extremity angiogram under MAC. VSS. Pt. sitting up comfortably at side of bed. No complaints. No apparent anesthetic complications noted. Continue current care.
--- NOTE | 2018-01-28 14:02 | PN ---
Physical Exam: SUBJECTIVE: Patient seen and examined. She has mild right foot tenderness, no fever, chills, sob. OBJECTIVE: Vital Signs Period Temp Pulse Resp BP Sys/Mcgill Pulse Ox Last 24 Hr 97.9 F-100.2 F 93-112 14-21 112-158/47-84 97-100 PE Neuro: alert, awake, cn 2-12intact Pulm: CTAB CV: s1 s2 rrr no mrg Abd: s nt nd + bs Ext: right foot 4th toe necrosis, dorsal wound slough, odor, draining Laboratory Results - last 24 hr 01/27/18 07:30 Iron 22 L TIBC 202 L Iron Saturation 11 L Active Medications Generic Name Dose Route Start Last Admin Trade Name Freq PRN Reason Stop Dose Admin Acetaminophen 650 mg 01/27/18 16:40 01/27/18 21:30 Tylenol - PO 650 mg Q4H PRN Administration PAIN Aspirin 81 mg 01/28/18 10:00 01/28/18 09:17 Asa - PO 81 mg DAILY [facility] Administration Clopidogrel Bisulfate 75 mg 01/28/18 10:00 01/28/18 09:18 Plavix - PO 75 mg DAILY [facility] Administration Collagenase 1 applic 01/28/18 10:00 01/28/18 09:24 Santyl - TP 1 applic DAILY [facility] Administration Protocol Furosemide 20 mg 01/28/18 10:00 01/28/18 09:18 Lasix - PO 20 mg DAILY [facility] Administration Heparin Sodium (Porcine) 5,000 unit 01/27/18 22:00 01/28/18 09:21 Heparin - SQ 5,000 unit BID [facility] Administration Hydrochlorothiazide 25 mg 01/28/18 10:00 01/28/18 09:18 Hctz - PO 25 mg DAILY [facility] Administration Vancomycin HCl 1 gm in 200 mls @ 133.333 mls/hr 01/28/18 10:00 01/28/18 10:17 Vancomycin 1 Gm Premix - IVPB 133.333 mls/hr Q24H [facility] Administration Protocol Piperacillin Sod/Tazobactam 50 mls @ 100 mls/hr 01/27/18 18:00 01/28/18 09:20 Sod 3.375 gm/ Dextrose IVPB 100 mls/hr Q8H-IV [facility] Administration Protocol Iron Sucrose 200 mg/ Sodium 100 mls @ 100 mls/hr 01/28/18 13:52 Chloride IVPB 01/28/18 14:51 ONCE ONE Losartan Potassium 100 mg 01/28/18 10:00 01/28/18 09:17 Cozaar - PO 100 mg DAILY [facility] Administration Metoprolol Succinate 50 mg 01/28/18 10:00 01/28/18 09:18 Toprol Xl - PO 50 mg DAILY [facility] Administration Morphine Sulfate 1 mg 01/27/18 16:40 01/28/18 09:25 Morphine Sulfate IVPUSH 1 mg Q4H PRN Administration PAIN 6-10 Assessment: 77 year old female with pmxh HTN, right 3rd toe amputation, chronic nonhealing foot wound with gangrene, PAD, s/p RLE angiogram and angioplasty 01/12 admitted with active bleeding and gangrenous right 4th toe. Plan: 1. R foot chronic foot wound with gangrene - Attempted lower ext angio, closed artery - Plan for BKA next week - Daily wound care - Continue Zosyn - Continue Vanco - Cardiology consult placed for clearance 2. HTN, diastolic CHF - Euovolemic - Toprol xl 50mg daily - Losartan 100mg daily - HCTZ 25mg daily - Lasix 20mg daily 3. PAD - ASA daily - Plavix daily 4. Iron deficiency anemia - Dose venofer 200mg x1 - Start ferrous sulfate Visit type - Emergency Visit Emergency Visit: Yes ED Registration Date: 01/27/18 Care time: The patient presented to the Emergency Department on the above date and was hospitalized for further evaluation of their emergent condition. - New Patient This patient is new to me today: Yes Date on this admission: 01/28/18 - Critical Care Critical Care patient: No
[2018-01-28] MEDS ORDERED: IRON SUCROSE INJECTION 200 MG in SODIUM CHLORIDE 90 ML IVPB ONE (15:30)
[2018-01-28] MEDS: ACETAMINOPHEN 325 MG TABLET (FP) PO PRN (15:56)
[2018-01-29] MEDS ORDERED: DEXTROSE 5%-WATER - 50 ML IVPB ONE ×3 (01:52→17:00)
[2018-01-29] MEDS ORDERED: PIPERACILLIN/TAZOBACTAM 3.375 GM VIAL IVPB ONE ×3 (01:52→17:00)
[2018-01-29] MEDS: PIPERACILLIN/TAZOB 3.375 GM 3.375 GM in DEXTROSE 5%-WATER - 50 ML IVPB SCH ×3 (02:04→17:11)
[2018-01-29 08:42] LABS: BASO % 0.5 % (0-2.0); EOS % 3.5 % (0-4.5); HEMATOCRIT 25.4 % (32.4-45.2); HEMOGLOBIN 8.5 GM/dL (10.7-15.3); LYMPH % 16.1 % (8-40); MCH 28.6 pg (25.7-33.7); MCHC 33.6 g/dl (32.0-36.0); MEAN CELL VOLUME 85.2 fl (80-96); MEAN PLT VOLUME 6.9 fl (7.5-11.1); MONO % 12.4 % (3.8-10.2); NEUT % 67.5 % (42.8-82.8); PLATELET COUNT 525 K/MM3 (134-434); RBC 2.99 M/mm3 (3.60-5.2); RDW 14.1 % (11.6-15.6); WHITE BLOOD COUNT 8.1 K/mm3 (4.0-10.0)
[2018-01-29 09:30] LABS: CHLORIDE 98 mmol/L (98-107); POTASSIUM 4.3 mmol/L (3.5-5.1); SODIUM 135 mmol/L (136-145)
[2018-01-29] MEDS: ASPIRIN 81 MG CHEWABLE TABLETS PO SCH (09:31)
[2018-01-29] MEDS: LOSARTAN POTASSIUM 50 MG TABLET (FP) PO SCH (09:31)
[2018-01-29] MEDS: HYDROCHLOROTHIAZIDE 25 MG TABLET (FP) PO SCH (09:31)
[2018-01-29] MEDS: CLOPIDOGREL BISULFATE 75 MG TABLET (FP) PO SCH (09:32)
[2018-01-29] MEDS: FUROSEMIDE 20 MG TABLET (FP) PO SCH (09:32)
[2018-01-29] MEDS: HEPARIN NA (PORCINE) 5,000 UNITS/ML 1ML VIAL SQ SCH ×2 (09:33→22:09)
[2018-01-29 09:34] LABS: ANION GAP 12 (8-16); BLOOD UREA NITROGEN 23 mg/dL (7-18); CALCIUM 9.4 mg/dL (8.5-10.1); CO2 25 mmol/L (21-32); CREATININE 1.2 mg/dL (0.55-1.02); GLUCOSE,RANDOM 85 mg/dL (74-106)
--- NOTE | 2018-01-29 10:29 | PN ---
Physical Exam: SUBJECTIVE: Patient seen and examined. No complaints, pain tolerable with medications OBJECTIVE: Vital Signs Period Temp Pulse Resp BP Sys/Mcgill Pulse Ox Last 24 Hr 98.2 F-99.2 F 93-99 19-20 99-120/48-54 PE Neuro: alert, awake, cn 2-12intact Pulm: CTAB CV: s1 s2 rrr no mrg Abd: s nt nd + bs Ext: right foot 4th toe necrosis, dorsal wound slough, odor, draining Laboratory Results - last 24 hr 01/29/18 01/29/18 08:00 08:00 WBC 8.1 RBC 2.99 L Hgb 8.5 L Hct 25.4 L MCV 85.2 MCH 28.6 MCHC 33.6 RDW 14.1 Plt Count 525 H MPV 6.9 L Absolute Neuts (auto) 5.5 Neutrophils % 67.5 Lymphocytes % 16.1 Monocytes % 12.4 H Eosinophils % 3.5 Basophils % 0.5 Nucleated RBC % 0 Sodium 135 L Potassium 4.3 Chloride 98 Carbon Dioxide 25 Anion Gap 12 BUN 23 H Creatinine 1.2 H Creat Clearance w eGFR 43.45 Random Glucose 85 Calcium 9.4 Active Medications Generic Name Dose Route Start Last Admin Trade Name Freq PRN Reason Stop Dose Admin Acetaminophen 650 mg 01/27/18 16:40 01/28/18 15:56 Tylenol - PO 650 mg Q4H PRN Administration PAIN Aspirin 81 mg 01/28/18 10:00 01/29/18 09:31 Asa - PO 81 mg DAILY [facility] Administration Clopidogrel Bisulfate 75 mg 01/28/18 10:00 01/29/18 09:32 Plavix - PO 75 mg DAILY [facility] Administration Collagenase 1 applic 01/28/18 10:00 01/28/18 09:24 Santyl - TP 1 applic DAILY [facility] Administration Protocol Furosemide 20 mg 01/28/18 10:00 01/29/18 09:32 Lasix - PO 20 mg DAILY [facility] Administration Heparin Sodium (Porcine) 5,000 unit 01/27/18 22:00 01/29/18 09:33 Heparin - SQ 5,000 unit BID [facility] Administration Hydrochlorothiazide 25 mg 01/28/18 10:00 01/29/18 09:31 Hctz - PO 25 mg DAILY [facility] Administration Vancomycin HCl 1 gm in 200 mls @ 133.333 mls/hr 01/28/18 10:00 01/28/18 10:17 Vancomycin 1 Gm Premix - IVPB 133.333 mls/hr Q24H [facility] Administration Protocol Piperacillin Sod/Tazobactam 50 mls @ 100 mls/hr 01/27/18 18:00 01/29/18 09:32 Sod 3.375 gm/ Dextrose IVPB 100 mls/hr Q8H-IV [facility] Administration Protocol Losartan Potassium 100 mg 01/28/18 10:00 01/29/18 09:31 Cozaar - PO 100 mg DAILY [facility] Administration Metoprolol Succinate 50 mg 01/28/18 10:00 01/29/18 09:32 Toprol Xl - PO 50 mg DAILY [facility] Administration Morphine Sulfate 1 mg 01/27/18 16:40 01/28/18 21:07 Morphine Sulfate IVPUSH 1 mg Q4H PRN Administration PAIN 6-10 Assessment: 77 year old female with pmxh HTN, right 3rd toe amputation, chronic nonhealing foot wound with gangrene, PAD, s/p RLE angiogram and angioplasty 01/12 admitted with active bleeding and gangrenous right 4th toe. Plan: 1. R foot chronic foot wound with gangrene - Attempted lower ext angio, closed artery - Plan for BKA next week - Daily wound care - Continue Zosyn - Continue Vanco - Cardiology consult placed for clearance 2. HTN, diastolic CHF - Euovolemic - Toprol xl 50mg daily - Losartan 100mg daily - stop HCTZ 25mg, Lasix 20mg for renal recovery 3. PAD - ASA daily - Plavix daily 4. Iron deficiency anemia - Venofer 200mg x1 01/28 - Start ferrous sulfate 5. MYA - Stop lasix, hctz - Trend Visit type - Emergency Visit Emergency Visit: Yes ED Registration Date: 01/27/18 Care time: The patient presented to the Emergency Department on the above date and was hospitalized for further evaluation of their emergent condition. - New Patient This patient is new to me today: No - Critical Care Critical Care patient: No
[2018-01-29] MEDS: VANCOMYCIN 1 GM PREMIX - 1 GM/200 ML BAG IVPB SCH (11:17)
[2018-01-29] MEDS: COLLAGENASE CLOSTRIDIUM HIST. 30 GRAMS TUBE TP SCH (13:40)
[2018-01-29] MEDS: MORPHINE SULFATE 2 MG/ML VIAL IVPUSH PRN ×2 (13:54→19:37)
--- NOTE | 2018-01-29 15:59 | CON.CARD ---
Consult Consult Specialty:: Cardiology Referred by:: Hospitalist Medicine Reason for Consultation:: Pre-operative cardiovascular evaluation - History of Present Illness Chief Complaint: Rt CLI History of Present Illness: Patient is a 77 year old woman with PMHx of HTN, PAD, diastolic dysfunction, s/ p RLE [employer], amputation to right 3rd toe (poor healing, failed hyperbaric therapy) , who presented with active bleeding and gangrenous 4th toe with purulence, after unsuccessful left [employer] attempt, planned for right BKA. She denies chest pain, dyspnea, near or true syncope, palpitations, orthopnea, PND, LE edema or change in exercise capacity. - History Source History Provided By: Patient Limitations to Obtaining History: No Limitations - Alcohol/Substance Use Hx Alcohol Use: No - Smoking History Smoking history: Never smoked Have you smoked in the past 12 months: No Home Medications - Allergies Allergies/Adverse Reactions: Allergies Allergy/AdvReac Type Severity Reaction Status Date / Time No Known Allergies Allergy Verified 01/26/18 23:15 - Home Medications Home Medications: Ambulatory Orders Furosemide 20 mg PO DAILY 07/12/17 Metoprolol Succinate 50 mg PO DAILY 07/12/17 Tramadol HCl 50 mg PO DAILY PRN 07/12/17 Aspirin [ASA -] 1 tab PO DAILY 09/20/17 Collagenase Clostridium Hist. [Santyl -] 1 applic TP DAILY tube 12/02/17 Losartan-Hctz 100-25 mg Tab 1 tab PO AM 01/07/18 Clopidogrel Bisulfate [Clopidogrel] 75 mg PO DAILY #30 tablet 01/17/18 Review of Systems - Review of Systems Integumentary: reports: Wound Vital Signs: Vital Signs Temperature 98.1 F 01/29/18 14:55 Pulse Rate 93 H 01/29/18 14:55 Respiratory Rate 18 01/29/18 14:55 Blood Pressure 102/53 01/29/18 14:55 O2 Sat by Pulse Oximetry (%) 100 01/27/18 21:00 Constitutional: Yes: No Distress, Calm Neck: Yes: Supple Respiratory: Yes: Regular, CTA Bilaterally Gastrointestinal: Yes: Normal Bowel Sounds, Soft Cardiovascular: Yes: Regular Rate and Rhythm JVD: No Carotid Bruit: No Heart Sounds: Yes: S1, S2 Murmur: Yes: Systolic Murmur, Grade 1 Edema: No - Other Data Labs, Other Data: CBC, BMP 01/29/18 08:00 01/29/18 08:00 INR, PTT INR 1.30 (0.83-1.09) H 01/27/18 07:30 ST @ [address]-T changes Ejection Fraction %: LVEF > or = 40 % Problem List - Problems (1) Diastolic dysfunction Code(s): I51.9 - HEART DISEASE, UNSPECIFIED (2) Hypertensive cardiomyopathy Code(s): I11.9 - HYPERTENSIVE HEART DISEASE WITHOUT HEART FAILURE; I43 - CARDIOMYOPATHY IN DISEASES CLASSIFIED ELSEWHERE Qualifiers: Heart failure presence: without heart failure Qualified Code(s): I11.9 - Hypertensive heart disease without heart failure; I43 - Cardiomyopathy in diseases classified elsewhere (3) MYA (acute kidney injury) Code(s): N17.9 - ACUTE KIDNEY FAILURE, UNSPECIFIED (4) Gangrenous toe Code(s): I96 - GANGRENE, NOT ELSEWHERE CLASSIFIED (5) PAD (peripheral artery disease) Code(s): I73.9 - PERIPHERAL VASCULAR DISEASE, UNSPECIFIED (6) Anemia Code(s): D64.9 - ANEMIA, UNSPECIFIED Qualifiers: Anemia type: unspecified type Qualified Code(s): D64.9 - Anemia, unspecified (7) Status post peripheral artery angioplasty Code(s): Z98.62 - PERIPHERAL VASCULAR ANGIOPLASTY STATUS Assessment/Plan 01/16/2018 Echo: Normal LV and RV size and fxn, LVEF 60-65%, mild MR, TR RVSP 32 mmHg 1. Pre-op CV evaluation right BKA 2. Diastolic dysfunction 3. PAD with right foot gangrene s/p RLE angiogram and peroneal artery angioplasty planned for right BKA 4. HTN 5. Anemia 6. MYA PLAN: 1. Continue Toprol XL 50 qd and titrate dosage 2. Continue Cozaar 100 qd with caution 3. Hold ASA 81 qd and Plavix 75 qd pending surgery 4. Hold Lasix and HCTZ pending renal recovery 5. Continue empiric antibiotic course and wound care 6. Given absence of symptoms of acute coronary syndrome, decompensated CHF or malignant arrhythmia, may proceed with rt BKA from CV-standpoint w/o further testing 7. Thank you for consultative opportunity
[2018-01-29] MEDS: ACETAMINOPHEN 325 MG TABLET (FP) PO PRN ×2 (17:10→22:08)
[2018-01-29] MEDS: FERROUS SO4 325 MG TABLET (FP) PO SCH (17:11)
[2018-01-30] MEDS ORDERED: PIPERACILLIN/TAZOBACTAM 3.375 GM VIAL IVPB ONE ×5 (01:15→22:52)
[2018-01-30] MEDS ORDERED: DEXTROSE 5%-WATER - 50 ML IVPB ONE ×5 (01:15→22:52)
[2018-01-30] MEDS: PIPERACILLIN/TAZOB 3.375 GM 3.375 GM in DEXTROSE 5%-WATER - 50 ML IVPB SCH ×3 (01:29→17:41)
[2018-01-30] MEDS: MORPHINE SULFATE 2 MG/ML VIAL IVPUSH PRN ×3 (02:31→17:40)
--- NOTE | 2018-01-30 09:01 | PN ---
Progress Note (short form) - Note Progress Note: Vascular Surgery Pt for right bka this week. Plavix stopped today. will plan for tue or . Will speak to family to know their thoughts. Spoke to daughter adiel on tuesday. Dennis Gold DO
[2018-01-30 09:03] LABS: ANION GAP 12 (8-16); BLOOD UREA NITROGEN 25 mg/dL (7-18); CALCIUM 9.5 mg/dL (8.5-10.1); CHLORIDE 94 mmol/L (98-107); CO2 27 mmol/L (21-32); CREATININE 1.1 mg/dL (0.55-1.02); GLUCOSE,RANDOM 100 mg/dL (74-106); SODIUM 133 mmol/L (136-145)
--- NOTE | 2018-01-30 09:03 | PN ---
Progress Note (short form) - Note Progress Note: Chief Complaint: Events noted, notes reviewed, sitting in a chair, denies any chest pain or dyspnea History of Present Illness: Seen and examined. Events noted, notes reviewed, sitting in a chair, denies any chest pain or dyspnea Echocardiography dated 01/16/2018 revealed normal LV and RV size and function, LVEF 60-65%, mild MR and mild TR with RVSP 32 mmHg Current Medications: Current Medications Acetaminophen (Tylenol -) 650 mg PO Q4H PRN PRN Reason: PAIN Last Admin: 01/29/18 22:08 Dose: 650 mg Aspirin (Asa -) 81 mg PO DAILY [facility] Last Admin: 01/29/18 09:31 Dose: 81 mg Clopidogrel Bisulfate (Plavix -) 75 mg PO DAILY [facility] Last Admin: 01/29/18 09:32 Dose: 75 mg Collagenase (Santyl -) 1 applic TP DAILY [facility]; Protocol Last Admin: 01/29/18 13:40 Dose: 1 applic Ferrous Sulfate (Feosol -) 325 mg PO BIDWM [facility] Last Admin: 01/29/18 17:11 Dose: 325 mg Heparin Sodium (Porcine) (Heparin -) 5,000 unit SQ BID [facility] Last Admin: 01/29/18 22:09 Dose: 5,000 unit Vancomycin HCl (Vancomycin 1 Gm Premix -) 1 gm in 200 mls @ 133.333 mls/hr IVPB Q24H [facility]; Protocol Last Admin: 01/29/18 11:17 Dose: 133.333 mls/hr Piperacillin Sod/Tazobactam (Sod 3.375 gm/ Dextrose) 50 mls @ 100 mls/hr IVPB Q8H-IV [facility]; Protocol Last Admin: 01/30/18 01:29 Dose: 100 mls/hr Losartan Potassium (Cozaar -) 100 mg PO DAILY [facility] Last Admin: 01/29/18 09:31 Dose: 100 mg Metoprolol Succinate (Toprol Xl -) 50 mg PO DAILY [facility] Last Admin: 01/29/18 09:32 Dose: 50 mg Morphine Sulfate (Morphine Sulfate) 1 mg IVPUSH Q4H PRN PRN Reason: PAIN 6-10 Last Admin: 01/30/18 02:31 Dose: 1 mg Review of Systems Cardiovascular: As noted above Respiratory: denies: denies: Cough or Sputum Production Gastrointestinal: denies: Nausea, Vomiting, Diarrhea, Constipation or Abdominal Discomfort Endocrine: No Symptoms Reported - Objective Vital Signs: Last Vital Signs Temp Pulse Resp BP Pulse Ox 97.4 F L 98 H 20 128/55 100 01/30/18 06:00 01/30/18 06:00 01/30/18 06:00 01/30/18 06:00 01/27/18 21:00 Intake & Output 01/27/18 01/28/18 01/29/18 01/30/18 23:59 23:59 23:59 23:59 Intake Total 600 490 400 Balance 600 490 400 Weight 136 lb 4.8 oz Neck: Supple negative JVD no bruit Cardiovascular: S1 S2 Regular Rate Rhythm Grade 1-2/6 SM Respiratory: Clear to A&P Bilaterally Gastrointestinal: Soft Benign Normal Bowel Sounds Ext: Negative Edema Labs: CBC, BMP 01/29/18 08:00 Hepatic Panel Total Bilirubin 0.4 mg/dL (0.2-1.0) 01/27/18 01:00 AST 14 U/L (15-37) L 01/27/18 01:00 ALT 14 U/L (12-78) 01/27/18 01:00 Alkaline Phosphatase 86 U/L (45-117) 01/27/18 01:00 Albumin 3.3 g/dl (3.4-5.0) L 01/27/18 01:00 Assessment/Plan: ASSESSMENT: 1. Pre-procedure cardiovascular evaluation prior to proceeding with right BKA 2. CAD angina pectoris stable 3. Diastolic LV dysfunction with class 0 NYHA classification LV failure 4. HTN 5. PAD with right foot gangrene post RLE angiogram and peroneal artery angioplasty planned for right BKA as outlined above 6. Anemia 6. CKD PLAN: 1. Continue Toprol XL 2. Continue Cozaar 3. Continue ASA and Plavix 4. Continue to hold diuretics 5. Antibiotics as per the primary team 6. There are no absolute contraindications in proceeding with planned surgical intervention considering that there is no clinical evidence of ACS and/or decompensated CHF and/or malignant ventricular arrhythmia Gabby Christianson MD
[2018-01-30] MEDS ORDERED: PT OWN MED DRAWER 7, Y5N ONE (09:32)
[2018-01-30] MEDS: LOSARTAN POTASSIUM 50 MG TABLET (FP) PO SCH (09:37)
[2018-01-30] MEDS: FERROUS SO4 325 MG TABLET (FP) PO SCH ×2 (09:37→17:41)
[2018-01-30] MEDS: VANCOMYCIN 1 GM PREMIX - 1 GM/200 ML BAG IVPB SCH (09:37)
[2018-01-30] MEDS: COLLAGENASE CLOSTRIDIUM HIST. 30 GRAMS TUBE TP SCH (09:38)
[2018-01-30] MEDS: HEPARIN NA (PORCINE) 5,000 UNITS/ML 1ML VIAL SQ SCH ×2 (10:13→21:26)
--- NOTE | 2018-01-30 14:39 | PN ---
Physical Exam: SUBJECTIVE: Patient seen and examined. She has pain going up and down her R lower leg OBJECTIVE: Vital Signs Period Temp Pulse Resp BP Sys/Mcgill Pulse Ox Last 24 Hr 97.4 F-98.4 F 93-109 18-20 96-128/52-59 PE Neuro: alert, awake, cn 2-12intact Pulm: CTAB CV: s1 s2 rrr no mrg Abd: s nt nd + bs Ext: right foot 4th toe necrosis, dressing draining, post op shoe in place Laboratory Results - last 24 hr 01/30/18 07:30 Sodium 133 L Potassium 4.0 Chloride 94 L Carbon Dioxide 27 Anion Gap 12 BUN 25 H Creatinine 1.1 H Creat Clearance w eGFR 48.04 Random Glucose 100 Calcium 9.5 Active Medications Generic Name Dose Route Start Last Admin Trade Name Freq PRN Reason Stop Dose Admin Acetaminophen 650 mg 01/27/18 16:40 01/29/18 22:08 Tylenol - PO 650 mg Q4H PRN Administration PAIN Collagenase 1 applic 01/28/18 10:00 01/30/18 09:38 Santyl - TP 1 applic DAILY [facility] Administration Protocol Ferrous Sulfate 325 mg 01/29/18 17:30 01/30/18 09:37 Feosol - PO 325 mg BIDWM [facility] Administration Heparin Sodium (Porcine) 5,000 unit 01/27/18 22:00 01/30/18 10:13 Heparin - SQ 5,000 unit BID [facility] Administration Vancomycin HCl 1 gm in 200 mls @ 133.333 mls/hr 01/28/18 10:00 01/30/18 09:37 Vancomycin 1 Gm Premix - IVPB 133.333 mls/hr Q24H [facility] Administration Protocol Piperacillin Sod/Tazobactam 50 mls @ 100 mls/hr 01/27/18 18:00 01/30/18 09:37 Sod 3.375 gm/ Dextrose IVPB 100 mls/hr Q8H-IV [facility] Administration Protocol Losartan Potassium 100 mg 01/28/18 10:00 01/30/18 09:37 Cozaar - PO 100 mg DAILY [facility] Administration Metoprolol Succinate 50 mg 01/28/18 10:00 01/30/18 09:37 Toprol Xl - PO 50 mg DAILY [facility] Administration Morphine Sulfate 1 mg 01/27/18 16:40 01/30/18 12:56 Morphine Sulfate IVPUSH 1 mg Q4H PRN Administration PAIN 6-10 Oxycodone HCl 5 mg 01/30/18 12:25 Roxicodone - PO Q4H PRN PAIN LEVEL 4 - 6 Assessment: 77 year old female with pmxh HTN, right 3rd toe amputation, chronic nonhealing foot wound with gangrene, PAD, s/p RLE angiogram and angioplasty 01/12 admitted with active bleeding and gangrenous right 4th toe. Plan: 1. R foot chronic foot wound with gangrene - Attempted lower ext angio, closed artery - Plan for BKA this - Stopped plavix and ASA today - Daily wound care - Continue Zosyn - Continue Vanco - Cardiology clearance noted 2. HTN, diastolic CHF - Euovolemic - Toprol xl 50mg daily - Losartan 100mg daily - stop HCTZ 25mg, Lasix 20mg for renal recovery 3. PAD - ASA hold - Plavix hold 4. Iron deficiency anemia - Venofer 200mg x1 01/28 - Started ferrous sulfate 5. MYA - Mild improvement - Stop lasix, hctz Visit type - Emergency Visit Emergency Visit: Yes ED Registration Date: 01/27/18 Care time: The patient presented to the Emergency Department on the above date and was hospitalized for further evaluation of their emergent condition. - New Patient This patient is new to me today: No - Critical Care Critical Care patient: No
[2018-01-30] MEDS: oxyCODONE HCL 5 MG TABLET PO PRN (23:27)
[2018-01-31] MEDS: PIPERACILLIN/TAZOB 3.375 GM 3.375 GM in DEXTROSE 5%-WATER - 50 ML IVPB SCH ×3 (01:26→18:15)
[2018-01-31 08:48] LABS: ANION GAP 11 (8-16); BLOOD UREA NITROGEN 20 mg/dL (7-18); CALCIUM 9.7 mg/dL (8.5-10.1); CHLORIDE 95 mmol/L (98-107); CO2 27 mmol/L (21-32); CREATININE 0.9 mg/dL (0.55-1.02); GLUCOSE,RANDOM 101 mg/dL (74-106); POTASSIUM 4.2 mmol/L (3.5-5.1); SODIUM 133 mmol/L (136-145)
[2018-01-31] MEDS ORDERED: PIPERACILLIN/TAZOBACTAM 3.375 GM VIAL IVPB ONE ×2 (09:30→18:10)
[2018-01-31] MEDS ORDERED: DEXTROSE 5%-WATER - 50 ML IVPB ONE ×2 (09:30→18:10)
[2018-01-31] MEDS: VANCOMYCIN 1 GM PREMIX - 1 GM/200 ML BAG IVPB SCH (09:55)
[2018-01-31] MEDS: LOSARTAN POTASSIUM 50 MG TABLET (FP) PO SCH (09:56)
[2018-01-31] MEDS: FERROUS SO4 325 MG TABLET (FP) PO SCH ×2 (09:56→18:15)
[2018-01-31] MEDS: MORPHINE SULFATE 2 MG/ML VIAL IVPUSH PRN ×2 (09:56→15:14)
[2018-01-31] MEDS: HEPARIN NA (PORCINE) 5,000 UNITS/ML 1ML VIAL SQ SCH ×2 (09:57→21:08)
[2018-01-31] MEDS: COLLAGENASE CLOSTRIDIUM HIST. 30 GRAMS TUBE TP SCH (09:57)
--- NOTE | 2018-01-31 11:30 | PN ---
Physical Exam: SUBJECTIVE: Patient seen and examined. No acute issues at this time. OBJECTIVE: Vital Signs Period Temp Pulse Resp BP Sys/Mcgill Pulse Ox Last 24 Hr 98.1 F-98.4 F 90-100 18-20 100-123/47-71 98 PE Neuro: alert, awake, cn 2-12intact Pulm: CTAB CV: s1 s2 rrr no mrg Abd: s nt nd + bs Ext: right foot 4th toe necrosis, dressing draining, post op shoe in place Laboratory Results - last 24 hr 01/31/18 07:25 Sodium 133 L Potassium 4.2 Chloride 95 L Carbon Dioxide 27 Anion Gap 11 BUN 20 H Creatinine 0.9 Creat Clearance w eGFR > 60 Random Glucose 101 Calcium 9.7 Active Medications Generic Name Dose Route Start Last Admin Trade Name Freq PRN Reason Stop Dose Admin Acetaminophen 650 mg 01/27/18 16:40 01/29/18 22:08 Tylenol - PO 650 mg Q4H PRN Administration PAIN Collagenase 1 applic 01/28/18 10:00 01/31/18 09:57 Santyl - TP 1 applic DAILY [facility] Administration Protocol Ferrous Sulfate 325 mg 01/29/18 17:30 01/31/18 09:56 Feosol - PO 325 mg BIDWM [facility] Administration Heparin Sodium (Porcine) 5,000 unit 01/27/18 22:00 01/31/18 09:57 Heparin - SQ 5,000 unit BID [facility] Administration Vancomycin HCl 1 gm in 200 mls @ 133.333 mls/hr 01/28/18 10:00 01/31/18 09:55 Vancomycin 1 Gm Premix - IVPB 133.333 mls/hr Q24H [facility] Administration Protocol Piperacillin Sod/Tazobactam 50 mls @ 100 mls/hr 01/27/18 18:00 01/31/18 09:55 Sod 3.375 gm/ Dextrose IVPB 100 mls/hr Q8H-IV [facility] Administration Protocol Losartan Potassium 100 mg 01/28/18 10:00 01/31/18 09:56 Cozaar - PO 100 mg DAILY [facility] Administration Metoprolol Succinate 50 mg 01/28/18 10:00 01/31/18 09:56 Toprol Xl - PO 50 mg DAILY [facility] Administration Morphine Sulfate 1 mg 01/27/18 16:40 01/31/18 09:56 Morphine Sulfate IVPUSH 1 mg Q4H PRN Administration PAIN 6-10 Oxycodone HCl 5 mg 01/30/18 12:25 01/30/18 23:27 Roxicodone - PO 5 mg Q4H PRN Administration PAIN LEVEL 4 - 6 Assessment: 77 year old female with pmxh HTN, right 3rd toe amputation, chronic nonhealing foot wound with gangrene, PAD, s/p RLE angiogram and angioplasty 01/12 admitted with active bleeding and gangrenous right 4th toe. Plan: 1. R foot chronic foot wound with gangrene - Attempted lower ext angio, closed artery - Plan for BKA this - Stopped plavix and ASA 01/30 - Daily wound care - Continue Zosyn - Continue Vanco - Cardiology clearance noted 2. HTN, diastolic CHF - Toprol xl 50mg daily - Losartan 100mg daily - Holding HCTZ 25mg, Lasix 20mg 3. PAD - ASA hold - Plavix hold 4. Iron deficiency anemia - Venofer 200mg x1 01/28 - Started ferrous sulfate 5. MYA - Resolved - Stop diuretics, can resume on dc, BP stable, appears euovolemic at this time Visit type - Emergency Visit Emergency Visit: Yes ED Registration Date: 01/27/18 Care time: The patient presented to the Emergency Department on the above date and was hospitalized for further evaluation of their emergent condition. - New Patient This patient is new to me today: No - Critical Care Critical Care patient: No
--- NOTE | 2018-01-31 11:40 | PN ---
Progress Note (short form) - Note Progress Note: Chief Complaint: Events noted, notes reviewed, sitting in a chair, denies any chest pain or dyspnea History of Present Illness: Seen and examined. Events noted, notes reviewed, sitting in a chair, denies any chest pain or dyspnea Echocardiography dated 01/16/2018 revealed normal LV and RV size and function, LVEF 60-65%, mild MR and mild TR with RVSP 32 mmHg Current Medications: Current Medications Acetaminophen (Tylenol -) 650 mg PO Q4H PRN PRN Reason: PAIN Last Admin: 01/29/18 22:08 Dose: 650 mg Collagenase (Santyl -) 1 applic TP DAILY [facility]; Protocol Last Admin: 01/31/18 09:57 Dose: 1 applic Ferrous Sulfate (Feosol -) 325 mg PO BIDWM [facility] Last Admin: 01/31/18 09:56 Dose: 325 mg Heparin Sodium (Porcine) (Heparin -) 5,000 unit SQ BID [facility] Last Admin: 01/31/18 09:57 Dose: 5,000 unit Vancomycin HCl (Vancomycin 1 Gm Premix -) 1 gm in 200 mls @ 133.333 mls/hr IVPB Q24H [facility]; Protocol Last Admin: 01/31/18 09:55 Dose: 133.333 mls/hr Piperacillin Sod/Tazobactam (Sod 3.375 gm/ Dextrose) 50 mls @ 100 mls/hr IVPB Q8H-IV [facility]; Protocol Last Admin: 01/31/18 09:55 Dose: 100 mls/hr Losartan Potassium (Cozaar -) 100 mg PO DAILY [facility] Last Admin: 01/31/18 09:56 Dose: 100 mg Metoprolol Succinate (Toprol Xl -) 50 mg PO DAILY [facility] Last Admin: 01/31/18 09:56 Dose: 50 mg Morphine Sulfate (Morphine Sulfate) 1 mg IVPUSH Q4H PRN PRN Reason: PAIN 6-10 Last Admin: 01/31/18 09:56 Dose: 1 mg Oxycodone HCl (Roxicodone -) 5 mg PO Q4H PRN PRN Reason: PAIN LEVEL 4 - 6 Last Admin: 01/30/18 23:27 Dose: 5 mg - Objective Vital Signs: Last Vital Signs Temp Pulse Resp BP Pulse Ox 98.2 F 100 H 20 115/71 98 01/31/18 06:00 01/31/18 06:00 01/31/18 06:00 01/31/18 06:00 01/30/18 21:00 Intake & Output 01/28/18 01/29/18 01/30/18 01/31/18 23:59 23:59 23:59 23:59 Intake Total 490 400 470 200 Balance 490 400 470 200 Neck: Supple Negative JVD no bruit Cardiovascular: S1 S2 Regular Rate Rhythm Grade 1-2/6 SM Respiratory: Clear to A&P Bilaterally Gastrointestinal: Soft Benign Normal Bowel Sounds Ext: Negative Edema Labs: CBC, BMP 01/29/18 08:00 01/31/18 07:25 Assessment/Plan: ASSESSMENT: 1. Pre-procedure cardiovascular evaluation prior to proceeding with right BKA 2. CAD angina pectoris stable 3. Diastolic LV dysfunction with class 0 NYHA classification LV failure 4. HTN 5. PAD with right foot gangrene post RLE angiogram and peroneal artery angioplasty planned for right BKA as outlined above 6. Anemia 6. CKD PLAN: 1. Continue Toprol XL 2. Continue Cozaar 3. Continue ASA and Plavix 4. Continue to hold diuretics 5. Antibiotics as per the primary team 6. As outlined in prior notes there are no absolute contraindications in proceeding with planned surgical intervention considering that there is no clinical evidence of ACS and/or decompensated CHF and/or malignant ventricular arrhythmia Gabby Christianson MD
[2018-01-31] MEDS: ACETAMINOPHEN 325 MG TABLET (FP) PO PRN (21:08)
[2018-01-31] MEDS: oxyCODONE HCL 5 MG TABLET PO PRN (21:09)
--- NOTE | 2018-01-31 22:11 | CONSULT ---
Consult - text type - Consultation Consultation Note: Patient was seen around noon today. Painful right foot. vss, Tmax 99 chronic foot wound with pvd and pain right foot, +necrosis, PVD Gangarene Discussed with patient who was not sure about options. Then discussed with her daughter around 4:30pm in wound care. Discussed options. Agreed that most likely a TMA would not heal properly. Discussed BKA with her and at this point due to the length of time the patient has been dealing with this and her current quality of life, a BKA would most likely be the best option at this point. Vascular on case and daughter states that procedure to be done on .
[2018-02-01] MEDS: PIPERACILLIN/TAZOB 3.375 GM 3.375 GM in DEXTROSE 5%-WATER - 50 ML IVPB SCH ×3 (03:07→17:10)
[2018-02-01] MEDS ORDERED: PIPERACILLIN/TAZOBACTAM 3.375 GM VIAL IVPB ONE ×3 (03:29→17:03)
[2018-02-01] MEDS ORDERED: DEXTROSE 5%-WATER - 50 ML IVPB ONE ×3 (03:29→17:03)
[2018-02-01] MEDS: oxyCODONE HCL 5 MG TABLET PO PRN ×3 (06:08→15:49)
[2018-02-01] MEDS: ACETAMINOPHEN 325 MG TABLET (FP) PO PRN (06:08)
[2018-02-01] MEDS: FERROUS SO4 325 MG TABLET (FP) PO SCH ×2 (08:29→17:07)
[2018-02-01] MEDS: LOSARTAN POTASSIUM 50 MG TABLET (FP) PO SCH (09:58)
[2018-02-01] MEDS: COLLAGENASE CLOSTRIDIUM HIST. 30 GRAMS TUBE TP SCH (09:58)
[2018-02-01] MEDS: HEPARIN NA (PORCINE) 5,000 UNITS/ML 1ML VIAL SQ SCH ×2 (09:58→22:05)
[2018-02-01] MEDS ORDERED: ACETAMINOPHEN 325 MG TABLET (FP) PO PRN (10:31)
--- NOTE | 2018-02-01 11:09 | PN ---
Physical Exam: SUBJECTIVE: Patient seen and examined. She complains of pain in her right foot. OBJECTIVE: Vital Signs Period Temp Pulse Resp BP Sys/Mcgill Pulse Ox Last 24 Hr 98.5 F-99 F 88-96 18-20 111-114/51-64 100 GENERAL: The patient is awake, alert, and fully oriented, in no acute distress. LUNGS: Breath sounds equal, clear to auscultation bilaterally, no wheezes, no crackles, no accessory muscle use. HEART: Regular rate and rhythm, S1, S2 without murmur, rub or gallop. ABDOMEN: Soft, nontender, nondistended, normoactive bowel sounds, no guarding, no rebound, no hepatosplenomegaly, no masses. EXTREMITIES: 2+ pulses, warm, well-perfused, 1+ edema, right foot wrapped. Active Medications Generic Name Dose Route Start Last Admin Trade Name Freq PRN Reason Stop Dose Admin Acetaminophen 650 mg 01/27/18 16:40 02/01/18 06:08 Tylenol - PO 650 mg Q4H PRN Administration PAIN Collagenase 1 applic 01/28/18 10:00 02/01/18 09:58 Santyl - TP 1 applic DAILY [facility] Administration Protocol Ferrous Sulfate 325 mg 01/29/18 17:30 02/01/18 08:29 Feosol - PO 325 mg BIDWM [facility] Administration Heparin Sodium (Porcine) 5,000 unit 01/27/18 22:00 02/01/18 09:58 Heparin - SQ 5,000 unit BID [facility] Administration Vancomycin HCl 1 gm in 200 mls @ 133.333 mls/hr 01/28/18 10:00 01/31/18 09:55 Vancomycin 1 Gm Premix - IVPB 133.333 mls/hr Q24H [facility] Administration Protocol Piperacillin Sod/Tazobactam 50 mls @ 100 mls/hr 01/27/18 18:00 02/01/18 09:59 Sod 3.375 gm/ Dextrose IVPB 100 mls/hr Q8H-IV [facility] Administration Protocol Losartan Potassium 100 mg 01/28/18 10:00 02/01/18 09:58 Cozaar - PO 100 mg DAILY [facility] Administration Metoprolol Succinate 50 mg 01/28/18 10:00 02/01/18 09:58 Toprol Xl - PO 50 mg DAILY [facility] Administration Morphine Sulfate 1 mg 01/27/18 16:40 01/31/18 15:14 Morphine Sulfate IVPUSH 1 mg Q4H PRN Administration PAIN 6-10 Oxycodone HCl 5 mg 01/30/18 12:25 02/01/18 06:08 Roxicodone - PO 5 mg Q4H PRN Administration PAIN LEVEL 4 - 6 ASSESSMENT/PLAN: This is a 77 year old woman with a history of HTN, right 3rd toe amputation, PAD with chronic wound of right foot, recent RLE angioplasty who presented to the ED with bleeding from her right foot. 1. PAD with chronic right foot wound with gangrene - s/p right peroneal artery angioplasty 01/12 - RLE angiogram attempted 01/27 but artery closed - Plan for right BKA tomorrow - Aspirin, Plavix held - Continue Zosyn, Vancomycin - Continue wound care with Santyl 2. Hypertensive heart disease with chronic diastolic heart failure - Stable - Lasix, HCTZ held secondary to MYA - Restart Lasix 3. HTN - Continue Toprol XL, Losartan - Cozaar, Lasix, HCTZ held secondary to MYA - Restart Lasix 4. Anemia secondary to chronic illness - Hemoglobin stable - Continue ferrous sulfate 5. Acute kidney injury - Resolved - Cozaar, Lasix, HCTZ held - restart Lasix Visit type - Emergency Visit Emergency Visit: Yes ED Registration Date: 01/27/18 Care time: The patient presented to the Emergency Department on the above date and was hospitalized for further evaluation of their emergent condition. - New Patient This patient is new to me today: Yes Date on this admission: 02/01/18 - Critical Care Critical Care patient: No - Discharge Referral Referred to [facility] No
--- NOTE | 2018-02-01 11:56 | PN ---
Progress Note (short form) - Note Progress Note: scheduled for BKA tomorrow no complaints Vital Signs Period Temp Pulse Resp BP Sys/Mcgill Pulse Ox Last 24 Hr 98.5 F-99 F 88-96 18-20 111-114/51-64 100 cor-rrr lungs clear abd soft,nt ext dressing just done by nurse CBC, BMP 01/29/18 08:00 01/31/18 07:25 vanco trough 17 imp/reccd for BKA in am hold vancomycin today resume in am suspect antiibotics can be stopped 24-48 hours postop if okay with vascular surgery
--- NOTE | 2018-02-01 12:10 | PN ---
Progress Note, Physician History of Present Illness: Reports right foot ischemic discomfort. - Current Medication List Current Medications: Active Medications Acetaminophen (Tylenol -) 650 mg PO Q4H PRN PRN Reason: PAIN LEVEL 1 - 3 Collagenase (Santyl -) 1 applic TP DAILY [facility]; Protocol Last Admin: 02/01/18 09:58 Dose: 1 applic Ferrous Sulfate (Feosol -) 325 mg PO BIDWM [facility] Last Admin: 02/01/18 08:29 Dose: 325 mg Furosemide (Lasix -) 20 mg PO DAILY [facility] Heparin Sodium (Porcine) (Heparin -) 5,000 unit SQ BID [facility] Last Admin: 02/01/18 09:58 Dose: 5,000 unit Piperacillin Sod/Tazobactam (Sod 3.375 gm/ Dextrose) 50 mls @ 100 mls/hr IVPB Q8H-IV [facility]; Protocol Last Admin: 02/01/18 09:59 Dose: 100 mls/hr Vancomycin HCl (Vancomycin 1 Gm Premix -) 1 gm in 200 mls @ 133.333 mls/hr IVPB Q24H [facility]; Protocol Losartan Potassium (Cozaar -) 100 mg PO DAILY [facility] Last Admin: 02/01/18 09:58 Dose: 100 mg Metoprolol Succinate (Toprol Xl -) 50 mg PO DAILY [facility] Last Admin: 02/01/18 09:58 Dose: 50 mg Morphine Sulfate (Morphine Sulfate) 2 mg IVPUSH Q4H PRN PRN Reason: PAIN LEVEL 7 - 10 Oxycodone HCl (Roxicodone -) 5 mg PO Q4H PRN PRN Reason: PAIN LEVEL 4 - 6 Last Admin: 02/01/18 10:34 Dose: 5 mg - Objective Vital Signs: Vital Signs Temperature 98.6 F 02/01/18 09:55 Pulse Rate 88 02/01/18 09:55 Respiratory Rate 20 02/01/18 09:55 Blood Pressure 111/64 02/01/18 09:55 O2 Sat by Pulse Oximetry (%) 100 01/31/18 21:00 Constitutional: Yes: No Distress, Calm Neck: Yes: Supple Cardiovascular: Yes: Regular Rate and Rhythm Respiratory: Yes: Regular, CTA Bilaterally Gastrointestinal: Yes: Normal Bowel Sounds, Soft Edema: Yes Edema: LLE: 1+, RLE: 1+ Wound/Incision: Yes: Dressing Dry and Intact Labs: CBC, BMP 01/29/18 08:00 01/31/18 07:25 INR, PTT INR 1.30 (0.83-1.09) H 01/27/18 07:30 Problem List - Problems (1) Diastolic dysfunction Code(s): I51.9 - HEART DISEASE, UNSPECIFIED (2) Hypertensive cardiomyopathy Code(s): I11.9 - HYPERTENSIVE HEART DISEASE WITHOUT HEART FAILURE; I43 - CARDIOMYOPATHY IN DISEASES CLASSIFIED ELSEWHERE Qualifiers: Heart failure presence: without heart failure Qualified Code(s): I11.9 - Hypertensive heart disease without heart failure; I43 - Cardiomyopathy in diseases classified elsewhere (3) MYA (acute kidney injury) Code(s): N17.9 - ACUTE KIDNEY FAILURE, UNSPECIFIED (4) Gangrenous toe Code(s): I96 - GANGRENE, NOT ELSEWHERE CLASSIFIED (5) PAD (peripheral artery disease) Code(s): I73.9 - PERIPHERAL VASCULAR DISEASE, UNSPECIFIED (6) Anemia Code(s): D64.9 - ANEMIA, UNSPECIFIED Qualifiers: Anemia type: unspecified type Qualified Code(s): D64.9 - Anemia, unspecified (7) Status post peripheral artery angioplasty Code(s): Z98.62 - PERIPHERAL VASCULAR ANGIOPLASTY STATUS Assessment/Plan 01/16/2018 Echo: Normal LV and RV size and fxn, LVEF 60-65%, mild MR, TR RVSP 32 mmHg 1. Pre-procedure cardiovascular evaluation prior to proceeding with right BKA 2. CAD angina pectoris stable 3. Diastolic LV dysfunction with class 0 NYHA classification LV failure 4. HTN 5. PAD with right foot gangrene post RLE angiogram and peroneal artery angioplasty planned for right BKA as outlined above 6. Anemia 7. MYA resolved PLAN: 1. Continue Toprol XL 50 qd 2. Continue Cozaar 100 qd 3. Hold ASA and Plavix pending OR 4. Resumed Lasix 20 qd with renal recovery 5. Continue empiric antibiotic course and wound care 6. As outlined in prior notes there are no absolute contraindications in proceeding with planned surgical intervention considering that there is no clinical evidence of ACS and/or decompensated CHF and/or malignant ventricular arrhythmia 7. DVT prophylaxis
[2018-02-01] MEDS: VANCOMYCIN 1 GM PREMIX - 1 GM/200 ML BAG IVPB SCH (12:32)
[2018-02-01] MEDS: FUROSEMIDE 20 MG TABLET (FP) PO SCH (12:33)
--- NOTE | 2018-02-01 12:42 | SPA.PREOP ---
- PRE-OP NOTE Dx: RLE dry gangrene Planned Procedure: RLE BKA Surgeon: Dennis Gold Consent: To be obtained by surgeon after risks, benefits and alternatives explained to patient and or health care proxy. Last Vital Signs Temp Pulse Resp BP Pulse Ox 98.6 F 88 20 111/64 100 02/01/18 09:55 02/01/18 09:55 02/01/18 09:55 02/01/18 09:55 01/31/18 21:00 Lab Results WBC 8.1 K/mm3 (4.0-10.0) 01/29/18 08:00 RBC 2.99 M/mm3 (3.60-5.2) L 01/29/18 08:00 Hgb 8.5 GM/dL (10.7-15.3) L 01/29/18 08:00 Hct 25.4 % (32.4-45.2) L 01/29/18 08:00 MCV 85.2 fl (80-96) 01/29/18 08:00 MCHC 33.6 g/dl (32.0-36.0) 01/29/18 08:00 RDW 14.1 % (11.6-15.6) 01/29/18 08:00 Plt Count 525 K/MM3 (134-434) H 01/29/18 08:00 Sodium 133 mmol/L (136-145) L 01/31/18 07:25 Potassium 4.2 mmol/L (3.5-5.1) 01/31/18 07:25 Chloride 95 mmol/L (98-107) L 01/31/18 07:25 Carbon Dioxide 27 mmol/L (21-32) 01/31/18 07:25 Anion Gap 11 (8-16) 01/31/18 07:25 BUN 20 mg/dL (7-18) H 01/31/18 07:25 Creatinine 0.9 mg/dL (0.55-1.02) 01/31/18 07:25 Random Glucose 101 mg/dL (74-106) 01/31/18 07:25 Calcium 9.7 mg/dL (8.5-10.1) 01/31/18 07:25 INR 1.30 (0.83-1.09) H 01/27/18 07:30 - ASSESSMENT/PLAN Problem List - Problems (1) Gangrenous toe Assessment/Plan: 1. NPO after midnight except po meds 2. GI/DVT PPX 3. Medical optimization / clearance Code(s): I96 - GANGRENE, NOT ELSEWHERE CLASSIFIED (2) Wound eschar of foot Code(s): R23.4 - CHANGES IN SKIN TEXTURE (3) PAD (peripheral artery disease) Code(s): I73.9 - PERIPHERAL VASCULAR DISEASE, UNSPECIFIED Visit type - Case Type Case Type: ED Admission
[2018-02-01] MEDS: MORPHINE SULFATE 2 MG/ML VIAL IVPUSH PRN ×2 (18:11→22:04)
[2018-02-02] MEDS ORDERED: PIPERACILLIN/TAZOBACTAM 3.375 GM VIAL IVPB ONE ×3 (02:00→16:57)
[2018-02-02] MEDS ORDERED: DEXTROSE 5%-WATER - 50 ML IVPB ONE ×3 (02:01→16:57)
[2018-02-02] MEDS: PIPERACILLIN/TAZOB 3.375 GM 3.375 GM in DEXTROSE 5%-WATER - 50 ML IVPB SCH ×3 (02:11→18:25)
[2018-02-02 08:06] LABS: HEMATOCRIT 23.4 % (32.4-45.2); HEMOGLOBIN 7.9 GM/dL (10.7-15.3); MCH 28.8 pg (25.7-33.7); MCHC 33.9 g/dl (32.0-36.0); PLATELET COUNT 509 K/MM3 (134-434); RBC 2.75 M/mm3 (3.60-5.2); RDW 14.2 % (11.6-15.6); WHITE BLOOD COUNT 7.7 K/mm3 (4.0-10.0)
[2018-02-02 08:32] LABS: CHLORIDE 93 mmol/L (98-107); SODIUM 132 mmol/L (136-145)
[2018-02-02 08:36] LABS: ANION GAP 12 MMOL/L (8-16); BLOOD UREA NITROGEN 21 mg/dL (7-18); CALCIUM 9.7 mg/dL (8.5-10.1); CO2 27 mmol/L (21-32); GLUCOSE,RANDOM 84 mg/dL (74-106)
[2018-02-02] MEDS: MORPHINE SULFATE 2 MG/ML VIAL IVPUSH PRN (08:50)
[2018-02-02] MEDS: HEPARIN NA (PORCINE) 5,000 UNITS/ML 1ML VIAL SQ SCH ×2 (09:18→21:27)
[2018-02-02] MEDS: FERROUS SO4 325 MG TABLET (FP) PO SCH ×2 (09:18→18:25)
[2018-02-02] MEDS: FUROSEMIDE 20 MG TABLET (FP) PO SCH (09:19)
[2018-02-02] MEDS: COLLAGENASE CLOSTRIDIUM HIST. 30 GRAMS TUBE TP SCH (09:19)
[2018-02-02] MEDS: LOSARTAN POTASSIUM 50 MG TABLET (FP) PO SCH (09:58)
[2018-02-02] MEDS ORDERED: VANCOMYCIN 1 GM PREMIX - 1 GM/200 ML BAG IVPB SCH (10:00)
--- NOTE | 2018-02-02 13:37 | OP ---
Operative Note - Note: Operative Date: 02/02/18 Pre-Operative Diagnosis: Right foot gangrene Operation: Right below knee amputation Post-Operative Diagnosis: Same as Pre-op Surgeon: Dennis Gold Anesthesia: General Estimated Blood Loss (mls): 100 Blood Volume Replaced (mls): 250 Operative Report Dictated: Yes
[2018-02-02] MEDS ORDERED: ONDANSETRON 4 MG/2 ML VIAL IVPUSH PRN (13:50)
[2018-02-02] MEDS ORDERED: SODIUM CHLORIDE 1,000 ML IV SCH (14:00)
[2018-02-02] MEDS ORDERED: ACETAMINOPHEN 325 MG TABLET (FP) PO PRN (14:33)
--- NOTE | 2018-02-02 17:38 | PN ---
Physical Exam: SUBJECTIVE: Patient seen and examined s/p BKA today. Patient is answering questions appropriately. States she is aware that she was hallucinating earlier today. Her daughters are at the bedside. OBJECTIVE: s/p right BKA. Patient awake and alert, in no acute distress Vital Signs Period Temp Pulse Resp BP Sys/Mcgill Pulse Ox Last 24 Hr 98 F-98.8 F 92-137 14-20 107-173/52-68 96-100 GENERAL: The patient is awake, alert, and fully oriented, in no acute distress. HEAD: Normal with no signs of trauma. EYES: PERRL, extraocular movements intact, sclera anicteric, conjunctiva clear. No ptosis. ENT: Ears normal, nares patent, oropharynx clear without exudates, moist mucous membranes. NECK: Trachea midline, full range of motion, supple. ABDOMEN: Soft, nontender, nondistended, normoactive bowel sounds, no guarding, no rebound, no hepatosplenomegaly, no masses. EXTREMITIES: right BKA PSYCH: Normal mood, normal affect Laboratory Results - last 24 hr 02/01/18 02/02/18 02/02/18 13:30 07:00 07:00 WBC 7.7 RBC 2.75 L Hgb 7.9 L Hct 23.4 L MCV 85.0 MCH 28.8 MCHC 33.9 RDW 14.2 Plt Count 509 H MPV 7.0 L Sodium 132 L Potassium 4.0 Chloride 93 L Carbon Dioxide 27 Anion Gap 12 BUN 21 H Creatinine 1.0 Creat Clearance w eGFR 53.62 Random Glucose 84 Calcium 9.7 Blood Type O POSITIVE Antibody Screen Negative Crossmatch See Detail Active Medications Generic Name Dose Route Start Last Admin Trade Name Freq PRN Reason Stop Dose Admin Acetaminophen 650 mg 02/02/18 14:33 Tylenol - PO Q4H PRN PAIN LEVEL 1 - 3 Collagenase 1 applic 02/03/18 10:00 Santyl - TP DAILY [facility] Protocol Fentanyl 50 mcg 02/02/18 13:50 02/02/18 14:30 Sublimaze Injection - IVPUSH 50 mcg [id number] PRN Administration PAIN-PACU ORDER X 4 DOSES ONLY Ferrous Sulfate 325 mg 02/02/18 17:30 Feosol - PO BIDWM [facility] Furosemide 20 mg 02/03/18 10:00 Lasix - PO DAILY [facility] Heparin Sodium (Porcine) 5,000 unit 02/02/18 22:00 Heparin - SQ BID [facility] Sodium Chloride 1,000 mls @ 125 mls/hr 02/02/18 14:00 Normal Saline - IV ASDIR [facility] Vancomycin HCl 1 gm in 200 mls @ 133.333 mls/hr 02/03/18 10:00 Vancomycin 1 Gm Premix - IVPB Q24H [facility] Protocol Piperacillin Sod/Tazobactam 50 mls @ 100 mls/hr 02/02/18 18:00 Sod 3.375 gm/ Dextrose IVPB Q8H-IV [facility] Protocol Losartan Potassium 100 mg 02/03/18 10:00 Cozaar - PO DAILY [facility] Metoprolol Succinate 50 mg 02/03/18 10:00 Toprol Xl - PO DAILY [facility] Morphine Sulfate 4 mg 02/02/18 13:38 Morphine Sulfate IVPUSH Q4H PRN PAIN LEVEL 7 - 10 Ondansetron HCl 4 mg 02/02/18 13:50 Zofran Injection IVPUSH Q6H PRN NAUSEA AND/OR VOMITING Oxycodone HCl 5 mg 02/02/18 14:33 Roxicodone - PO Q4H PRN PAIN LEVEL 4 - 6 ASSESSMENT/PLAN: Patient is a 77 year old female with a significant past medical history of chronic right lower extremity edema s/p right 3rd toe amputation, s/p R SFA stenting presents to the hospital for R foot bleeding gangrenous right 4th toe. Vascular Right foot chronic wounds/gangrene: s/p right BKA today. On Zosyn and Vanco. Pain managed managed with oxycodone with caution secondary to confusion, hallucination side effects. PAD: asa, plavix on hold. Card: Hypertension: BP stable. on Toprol, Losartan. Diastolic CHF: on Lasix. Heme: Anemia: stable, monitor hmg/hct post surgery. On ferrous sulfate. Renal MYA, resolved fen tolerating PO monitor electrolytes low salt diet prophy Heparin bid incentive spirometer Visit type - Emergency Visit Emergency Visit: Yes ED Registration Date: 01/27/18 Care time: The patient presented to the Emergency Department on the above date and was hospitalized for further evaluation of their emergent condition. - New Patient This patient is new to me today: Yes Date on this admission: 02/02/18 - Critical Care Critical Care patient: No - Discharge Referral Referred to [facility] No
--- NOTE | 2018-02-02 17:50 | SURG ---
Surgery Distribution Analyst Note Distribution Analyst: Bhakti Zeng PA-C Date of Service: 02/02/18 Diagnosis: : Right foot gangrene Procedure: Right below knee amputation I was present for the entirety of the operative procedure. For further detail, please refer to operative report. Visit type - Case Type Case Type: ED Admission - Emergency Emergency Visit: Yes ED Registration Date: 01/27/18 Care time: The patient presented to the Emergency Department on the above date and was hospitalized for further evaluation of their emergent condition. - New patient This patient is new to me today: Yes Date on this admission: 02/02/18
[2018-02-02] MEDS: oxyCODONE HCL 5 MG TABLET PO PRN (20:07)
[2018-02-03] MEDS ORDERED: PIPERACILLIN/TAZOBACTAM 3.375 GM VIAL IVPB ONE ×2 (01:11→09:31)
[2018-02-03] MEDS ORDERED: DEXTROSE 5%-WATER - 50 ML IVPB ONE ×2 (01:12→09:32)
[2018-02-03] MEDS: PIPERACILLIN/TAZOB 3.375 GM 3.375 GM in DEXTROSE 5%-WATER - 50 ML IVPB SCH ×2 (01:17→10:01)
[2018-02-03] MEDS: morphine SULFATE 4 MG/ML VIAL IVPUSH PRN (01:47)
[2018-02-03 08:25] LABS: BASO % 0.3 % (0-2.0); EOS % 0.2 % (0-4.5); HEMATOCRIT 21.9 % (32.4-45.2); HEMOGLOBIN 7.4 GM/dL (10.7-15.3); LYMPH % 14.2 % (8-40); MCH 28.4 pg (25.7-33.7); MEAN CELL VOLUME 83.7 fl (80-96); NEUT % 71.3 % (42.8-82.8); PLATELET COUNT 373 K/MM3 (134-434); RBC 2.62 M/mm3 (3.60-5.2); RDW 14.3 % (11.6-15.6); WHITE BLOOD COUNT 9.3 K/mm3 (4.0-10.0)
--- NOTE | 2018-02-03 08:29 | PN ---
Progress Note (short form) - Note Progress Note: Post op day#1.S/p Right BKA under GA uneventful.Patient stable.No any anesthesia related problem.Patient Dc from the anesthesia care.
[2018-02-03 08:51] LABS: CHLORIDE 100 mmol/L (98-107); POTASSIUM 3.9 mmol/L (3.5-5.1); SODIUM 134 mmol/L (136-145)
[2018-02-03 09:00] LABS: ALBUMIN 2.3 g/dl (3.4-5.0); ALK PHOS 53 U/L (45-117); ANION GAP 7 MMOL/L (8-16); BILIRUBIN,TOTAL 0.5 mg/dL (0.2-1.0); BLOOD UREA NITROGEN 14 mg/dL (7-18); CALCIUM 8.6 mg/dL (8.5-10.1); CO2 27 mmol/L (21-32); CREATININE 0.8 mg/dL (0.55-1.02); GLUCOSE,RANDOM 88 mg/dL (74-106); SGOT/AST 14 U/L (15-37); SGPT/ALT 10 U/L (12-78)
--- NOTE | 2018-02-03 09:30 | PN ---
Progress Note (short form) - Note Progress Note: surgery POD#1 right BKA 2/2 gangrene. Patient states she feels well overall and has minimal pain. She is tolerating a regular diet and denies any CP, SOB, N/V, fever or chills. Vital Signs Temp 98.8 F 02/03/18 08:20 Pulse 104 H 02/03/18 08:20 Resp 20 02/03/18 08:20 BP 131/62 02/03/18 08:20 Pulse Ox 100 02/02/18 21:00 Intake & Output 02/02/18 02/02/18 02/03/18 11:59 23:59 11:59 Intake Total 450 440 350 Output Total 1250 500 Balance 450 -810 -150 Intake: IV 150 50 IVPB 100 50 Oral 240 300 Blood Product 300 50 Output: Urine 1150 500 Heck 400 500 Estimated Blood Loss 100 Other: Voiding Method Indwelling Catheter # Unmeasured Voids Void 1 Bowel Movement No No No CBC, BMP 02/03/18 06:00 02/03/18 06:00 PE: A@Ox3, NAD unlabored resp on RA Right LE: Knee ROM from 0-110 degrees AAROM, stump dressing C/D/I with surrounding tissue intact, no tracking erythema or signs of active bleeding. Thigh soft, supple and non-tender to palpation. Leg warm to the touch. Left LE leg warm to touch, all compartments soft, supple and non-tender Problem List - Problems (1) S/P BKA (below knee amputation) Assessment/Plan: POD #1 doing well in the setting of chronic anemia with drop in H&H post op after receiving intraop blood transfusion. 1) Transfuse 2 units PRBC stat 2) post transfusion cbc and continue to trend labs daily 3) maintain dressing keep clean and dry, to be taken down POD #3 4) knee immobilizer to right knee 5) DVT and GI prophlaxis Evaluation and plan discussed with Dr Gold. Code(s): Z89.519 - ACQUIRED ABSENCE OF UNSPECIFIED LEG BELOW KNEE
[2018-02-03] MEDS: LOSARTAN POTASSIUM 50 MG TABLET (FP) PO SCH (10:00)
[2018-02-03] MEDS: FUROSEMIDE 20 MG TABLET (FP) PO SCH (10:00)
[2018-02-03] MEDS ORDERED: VANCOMYCIN 1 GM PREMIX - 1 GM/200 ML BAG IVPB SCH (10:00)
[2018-02-03] MEDS: HEPARIN NA (PORCINE) 5,000 UNITS/ML 1ML VIAL SQ SCH ×2 (10:01→22:24)
[2018-02-03] MEDS: FERROUS SO4 325 MG TABLET (FP) PO SCH ×2 (10:01→17:20)
[2018-02-03] MEDS: COLLAGENASE CLOSTRIDIUM HIST. 30 GRAMS TUBE TP SCH (10:51)
[2018-02-03] MEDS: oxyCODONE HCL 5 MG TABLET PO PRN ×3 (10:52→22:24)
--- NOTE | 2018-02-03 12:47 | PN ---
Progress Note (short form) - Note Progress Note: s/p BKA complains of stump pain Vital Signs Period Temp Pulse Resp BP Sys/Mcgill Pulse Ox Last 24 Hr 98 F-98.8 F 97-137 14-20 107-173/50-81 96-[address] cor-rrr lungs clear abd soft,nt CBC, BMP 02/03/18 06:00 02/03/18 06:00 imp/reccd s/p BKA can d/c antibiotics if okay with vascular please call back if needed thanks
--- NOTE | 2018-02-03 14:21 | PN ---
Progress Note, Physician History of Present Illness: POD#1 right BKA, reports stump pain, denies chest pain or dyspnea. - Current Medication List Current Medications: Active Medications Acetaminophen (Tylenol -) 650 mg PO Q4H PRN PRN Reason: PAIN LEVEL 1 - 3 Collagenase (Santyl -) 1 applic TP DAILY [facility]; Protocol Last Admin: 02/03/18 10:51 Dose: Not Given Fentanyl (Sublimaze Injection -) 50 mcg IVPUSH [id number] PRN PRN Reason: PAIN-PACU ORDER X 4 DOSES ONLY Last Admin: 02/02/18 14:30 Dose: 50 mcg Ferrous Sulfate (Feosol -) 325 mg PO BIDWM [facility] Last Admin: 02/03/18 10:01 Dose: 325 mg Furosemide (Lasix -) 20 mg PO DAILY [facility] Last Admin: 02/03/18 10:00 Dose: 20 mg Heparin Sodium (Porcine) (Heparin -) 5,000 unit SQ BID [facility] Last Admin: 02/03/18 10:01 Dose: 5,000 unit Vancomycin HCl (Vancomycin 1 Gm Premix -) 1 gm in 200 mls @ 133.333 mls/hr IVPB Q24H [facility]; Protocol Last Admin: 02/03/18 10:49 Dose: 133.333 mls/hr Piperacillin Sod/Tazobactam (Sod 3.375 gm/ Dextrose) 50 mls @ 100 mls/hr IVPB Q8H-IV [facility]; Protocol Last Admin: 02/03/18 10:01 Dose: 100 mls/hr Losartan Potassium (Cozaar -) 100 mg PO DAILY [facility] Last Admin: 02/03/18 10:00 Dose: 100 mg Metoprolol Succinate (Toprol Xl -) 50 mg PO DAILY [facility] Last Admin: 02/03/18 10:01 Dose: 50 mg Morphine Sulfate (Morphine Sulfate) 4 mg IVPUSH Q4H PRN PRN Reason: PAIN LEVEL 7 - 10 Last Admin: 02/03/18 01:47 Dose: 4 mg Ondansetron HCl (Zofran Injection) 4 mg IVPUSH Q6H PRN PRN Reason: NAUSEA AND/OR VOMITING Oxycodone HCl (Roxicodone -) 5 mg PO Q4H PRN PRN Reason: PAIN LEVEL 4 - 6 Last Admin: 02/03/18 10:52 Dose: 5 mg - Objective Vital Signs: Vital Signs Temperature 98.8 F 02/03/18 08:20 Pulse Rate 104 H 02/03/18 08:20 Respiratory Rate 20 02/03/18 08:20 Blood Pressure 131/62 02/03/18 08:20 O2 Sat by Pulse Oximetry (%) 100 02/02/18 21:00 Constitutional: Yes: No Distress, Calm Neck: Yes: Supple Cardiovascular: Yes: Regular Rate and Rhythm Respiratory: Yes: Regular, CTA Bilaterally Gastrointestinal: Yes: Normal Bowel Sounds, Soft Extremities: Yes: Amputation (Right BKA) Edema: No Labs: CBC, BMP 02/03/18 06:00 02/03/18 06:00 INR, PTT INR 1.30 (0.83-1.09) H 01/27/18 07:30 Problem List - Problems (1) Diastolic dysfunction Code(s): I51.9 - HEART DISEASE, UNSPECIFIED (2) Hypertensive cardiomyopathy Code(s): I11.9 - HYPERTENSIVE HEART DISEASE WITHOUT HEART FAILURE; I43 - CARDIOMYOPATHY IN DISEASES CLASSIFIED ELSEWHERE Qualifiers: Heart failure presence: without heart failure Qualified Code(s): I11.9 - Hypertensive heart disease without heart failure; I43 - Cardiomyopathy in diseases classified elsewhere (3) MYA (acute kidney injury) Code(s): N17.9 - ACUTE KIDNEY FAILURE, UNSPECIFIED (4) Gangrenous toe Code(s): I96 - GANGRENE, NOT ELSEWHERE CLASSIFIED (5) PAD (peripheral artery disease) Code(s): I73.9 - PERIPHERAL VASCULAR DISEASE, UNSPECIFIED (6) Anemia Code(s): D64.9 - ANEMIA, UNSPECIFIED Qualifiers: Anemia type: unspecified type Qualified Code(s): D64.9 - Anemia, unspecified (7) Status post peripheral artery angioplasty Code(s): Z98.62 - PERIPHERAL VASCULAR ANGIOPLASTY STATUS Assessment/Plan 01/16/2018 Echo: Normal LV and RV size and fxn, LVEF 60-65%, mild MR, TR RVSP 32 mmHg 1. POD#1 right BKA for right foot gangrene 2. CAD angina pectoris stable 3. Diastolic LV dysfunction with class 0 NYHA classification LV failure 4. HTN 5. Anemia 6. MYA resolved PLAN: 1. Continue Toprol XL 50 qd 2. Continue Cozaar 100 qd 3. Monitor Hgb post transfusion and resume ASA/Plavix once hemostasis achieved 4. Resumed Lasix 20 qd with renal recovery 5. Empiric antibiotic course to be d/roopa and wound care 6. DVT prophylaxis
[2018-02-03 15:19] VITALS: BMI 21.2
--- NOTE | 2018-02-03 15:32 | PN ---
Physical Exam: SUBJECTIVE: Patient seen and examined. Denies sob, dizziness, mckinnon, palpitations. Has RLE pain OBJECTIVE: Vital Signs Period Temp Pulse Resp BP Sys/Mcgill Pulse Ox Last 24 Hr 98 F-98.8 F 97-108 18-20 107-143/52-63 100 PE Neuro: alert, awake, cn 2-12intact Pulm: CTAB CV: s1 s2 rrr no mrg Abd: s nt nd + bs Ext: right foot BKA, brace in place Laboratory Results - last 24 hr 02/01/18 02/02/18 02/03/18 13:30 19:56 06:00 WBC 9.3 RBC 2.62 L Hgb 7.4 L Hct 21.9 L MCV 83.7 MCH 28.4 MCHC 34.0 RDW 14.3 Plt Count 373 D MPV 7.0 L Absolute Neuts (auto) 6.6 Neutrophils % 71.3 Lymphocytes % 14.2 Monocytes % 14.0 H Eosinophils % 0.2 D Basophils % 0.3 Nucleated RBC % 0 Sodium Potassium Chloride Carbon Dioxide Anion Gap BUN Creatinine Creat Clearance w eGFR POC Glucometer 197 Random Glucose Calcium Total Bilirubin AST ALT Alkaline Phosphatase Total Protein Albumin Blood Type O POSITIVE Antibody Screen Negative Crossmatch See Detail 02/03/18 06:00 WBC RBC Hgb Hct MCV MCH MCHC RDW Plt Count MPV Absolute Neuts (auto) Neutrophils % Lymphocytes % Monocytes % Eosinophils % Basophils % Nucleated RBC % Sodium 134 L Potassium 3.9 Chloride 100 Carbon Dioxide 27 Anion Gap 7 L BUN 14 Creatinine 0.8 Creat Clearance w eGFR > 60 POC Glucometer Random Glucose 88 Calcium 8.6 Total Bilirubin 0.5 AST 14 L ALT 10 L Alkaline Phosphatase 53 D Total Protein 6.0 L Albumin 2.3 L Blood Type Antibody Screen Crossmatch Active Medications Generic Name Dose Route Start Last Admin Trade Name Freq PRN Reason Stop Dose Admin Acetaminophen 650 mg 02/02/18 14:33 Tylenol - PO Q4H PRN PAIN LEVEL 1 - 3 Collagenase 1 applic 02/03/18 10:00 02/03/18 10:51 Santyl - TP Not Given DAILY [facility] Protocol Fentanyl 50 mcg 02/02/18 13:50 02/02/18 14:30 Sublimaze Injection - IVPUSH 50 mcg [id number] PRN Administration PAIN-PACU ORDER X 4 DOSES ONLY Ferrous Sulfate 325 mg 02/02/18 17:30 02/03/18 10:01 Feosol - PO 325 mg BIDWM [facility] Administration Furosemide 20 mg 02/03/18 10:00 02/03/18 10:00 Lasix - PO 20 mg DAILY [facility] Administration Heparin Sodium (Porcine) 5,000 unit 02/02/18 22:00 02/03/18 10:01 Heparin - SQ 5,000 unit BID [facility] Administration Vancomycin HCl 1 gm in 200 mls @ 133.333 mls/hr 02/03/18 10:00 02/03/18 10:49 Vancomycin 1 Gm Premix - IVPB 133.333 mls/hr Q24H [facility] Administration Protocol Piperacillin Sod/Tazobactam 50 mls @ 100 mls/hr 02/02/18 18:00 02/03/18 10:01 Sod 3.375 gm/ Dextrose IVPB 100 mls/hr Q8H-IV [facility] Administration Protocol Losartan Potassium 100 mg 02/03/18 10:00 02/03/18 10:00 Cozaar - PO 100 mg DAILY [facility] Administration Metoprolol Succinate 50 mg 02/03/18 10:00 02/03/18 10:01 Toprol Xl - PO 50 mg DAILY [facility] Administration Morphine Sulfate 4 mg 02/02/18 13:38 02/03/18 01:47 Morphine Sulfate IVPUSH 4 mg Q4H PRN Administration PAIN LEVEL 7 - 10 Ondansetron HCl 4 mg 02/02/18 13:50 Zofran Injection IVPUSH Q6H PRN NAUSEA AND/OR VOMITING Oxycodone HCl 5 mg 02/02/18 14:33 02/03/18 15:09 Roxicodone - PO 5 mg Q4H PRN Administration PAIN LEVEL 4 - 6 Assessment: 77 year old female with pmxh HTN, right 3rd toe amputation, chronic nonhealing foot wound with gangrene, PAD, s/p RLE angiogram and angioplasty 01/12 admitted with active bleeding and gangrenous right 4th toe. Plan: 1. 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 Acute blood loss anemia - Transfused intra op yesterday - 2 units ordered today, lasix in between - Check cbc 3. HTN, diastolic CHF - Toprol xl 50mg daily - Losartan 100mg daily - Holding HCTZ 25mg, Lasix 20mg 4. PAD - ASA hold - Plavix hold 5. Iron deficiency anemia - Venofer 200mg x1 01/28 - Started ferrous sulfate 6. MYA - Resolved - Resume lasix Visit type - Emergency Visit Emergency Visit: Yes ED Registration Date: 01/27/18 Care time: The patient presented to the Emergency Department on the above date and was hospitalized for further evaluation of their emergent condition. - New Patient This patient is new to me today: No - Critical Care Critical Care patient: No
[2018-02-03] MEDS ORDERED: AMMONIUM LACTATE 12% LOTION 225 GM BOTTLE TP PRN (16:33)
--- NOTE | 2018-02-03 16:33 | PN ---
Progress Note (short form) - Note Progress Note: s/p bka right. Patient alert and oriented. vss, tmax 98.5 left foot no signs of infection, -ulceration, -cellulitis bka right stable left foot Discussed with patient need for proper shoe gear on left foot and continued follow up care every month till stable with prostheses on right. Patient states she understands. Will follow till dc. 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 Ammonium lactate left.
[2018-02-03] MEDS ORDERED: FUROSEMIDE 40 MG/4 ML INJECTABLE VIAL IVPUSH ONE (18:15)
[2018-02-04] MEDS: HEPARIN NA (PORCINE) 5,000 UNITS/ML 1ML VIAL SQ SCH ×3 (05:59→22:11)
[2018-02-04] MEDS: FERROUS SO4 325 MG TABLET (FP) PO SCH ×2 (09:48→17:56)
[2018-02-04] MEDS: FUROSEMIDE 20 MG TABLET (FP) PO SCH (09:48)
[2018-02-04] MEDS: LOSARTAN POTASSIUM 50 MG TABLET (FP) PO SCH (09:48)
[2018-02-04] MEDS: COLLAGENASE CLOSTRIDIUM HIST. 30 GRAMS TUBE TP SCH (09:49)
--- NOTE | 2018-02-04 10:30 | PN ---
Progress Note (short form) - Note Progress Note: Chief Complaint: Events noted, notes reviewed, resting in bed, denies any chest pain or dyspnea History of Present Illness: Seen and examined. Events noted, notes reviewed, resting in bed, denies any chest pain or dyspnea Echocardiography dated 01/16/2018 revealed normal LV and RV size and function, LVEF 60-65%, mild MR and mild TR with RVSP 32 mmHg Current Medications: Current Medications Acetaminophen (Tylenol -) 650 mg PO Q4H PRN PRN Reason: PAIN LEVEL 1 - 3 Collagenase (Santyl -) 1 applic TP DAILY [facility]; Protocol Last Admin: 02/04/18 09:49 Dose: Not Given Fentanyl (Sublimaze Injection -) 50 mcg IVPUSH [id number] PRN PRN Reason: PAIN-PACU ORDER X 4 DOSES ONLY Last Admin: 02/02/18 14:30 Dose: 50 mcg Ferrous Sulfate (Feosol -) 325 mg PO BIDWM [facility] Last Admin: 02/04/18 09:48 Dose: 325 mg Furosemide (Lasix -) 20 mg PO DAILY [facility] Last Admin: 02/04/18 09:48 Dose: 20 mg Heparin Sodium (Porcine) (Heparin -) 5,000 unit SQ TID [facility] Last Admin: 02/04/18 05:59 Dose: 5,000 unit Lactic Acid (Lac-Hydrin 12) 1 applic TP Q24H PRN PRN Reason: DRY SKIN Losartan Potassium (Cozaar -) 100 mg PO DAILY [facility] Last Admin: 02/04/18 09:48 Dose: 100 mg Metoprolol Succinate (Toprol Xl -) 50 mg PO DAILY [facility] Last Admin: 02/04/18 09:48 Dose: 50 mg Morphine Sulfate (Morphine Sulfate) 4 mg IVPUSH Q4H PRN PRN Reason: PAIN LEVEL 7 - 10 Last Admin: 02/03/18 01:47 Dose: 4 mg Ondansetron HCl (Zofran Injection) 4 mg IVPUSH Q6H PRN PRN Reason: NAUSEA AND/OR VOMITING Oxycodone HCl (Roxicodone -) 5 mg PO Q4H PRN PRN Reason: PAIN LEVEL 4 - 6 Last Admin: 02/03/18 22:24 Dose: 5 mg - Objective Vital Signs: Last Vital Signs Temp Pulse Resp BP Pulse Ox 100.0 F H 102 H 20 129/57 100 02/04/18 09:32 02/04/18 09:32 02/04/18 09:32 02/04/18 09:32 02/02/18 21:00 Intake & Output 02/01/18 02/02/18 02/03/18 02/04/18 23:59 23:59 23:59 23:59 Intake Total 633 563 2766 700 Output Total 1250 2850 200 Balance 620 -360 -1400 500 Weight 136 lb Neck: Supple Negative JVD no bruit Cardiovascular: S1 S2 Regular Rate Rhythm Grade 1-2/6 SM Respiratory: Clear to A&P Bilaterally Gastrointestinal: Soft Benign Normal Bowel Sounds Ext: Negative Edema Right Labs: CBC, BMP 02/03/18 06:00 02/03/18 06:00 Assessment/Plan: ASSESSMENT: 1. POD#2 post right BKA for right foot gangrene, PAD with right foot gangrene post RLE angiogram and peroneal artery angioplasty 2. CAD angina pectoris stable 3. Diastolic LV dysfunction with class 0 NYHA classification LV failure 4. HTN 5. Acute on chronic CKD, resolved 6. Anemia PLAN: 1. Continue Toprol XL 2. Continue Cozaar 3. Recommend resumption of ASA and Plavix unless contraindicated 4. Continue diuretics/Lasix Gabby Christianson MD
--- NOTE | 2018-02-04 11:56 | PN ---
Physical Exam: SUBJECTIVE: Patient seen and examined at the bedside. Awake and alert. denies pain. OBJECTIVE: Vital Signs Period Temp Pulse Resp BP Sys/Mcgill Pulse Ox Last 24 Hr 98.2 F-100.0 F 90-102 20-20 107-152/50-66 GENERAL: The patient is awake, alert, and fully oriented, in no acute distress. HEAD: Normal with no signs of trauma. EYES: PERRL, extraocular movements intact, sclera anicteric, conjunctiva clear. No ptosis. ENT: Ears normal, nares patent, oropharynx clear without exudates, moist mucous membranes. NECK: Trachea midline, full range of motion, supple. ABDOMEN: Soft, nontender, nondistended, normoactive bowel sounds, no guarding, no rebound, no hepatosplenomegaly, no masses. EXTREMITIES: a/p right BKA PSYCH: Normal mood, normal affect Laboratory Results - last 24 hr 02/01/18 13:30 Blood Type O POSITIVE Antibody Screen Negative Crossmatch See Detail Active Medications Generic Name Dose Route Start Last Admin Trade Name Freq PRN Reason Stop Dose Admin Acetaminophen 650 mg 02/02/18 14:33 Tylenol - PO Q4H PRN PAIN LEVEL 1 - 3 Collagenase 1 applic 02/03/18 10:00 02/04/18 09:49 Santyl - TP Not Given DAILY [facility] Protocol Fentanyl 50 mcg 02/02/18 13:50 02/02/18 14:30 Sublimaze Injection - IVPUSH 50 mcg [id number] PRN Administration PAIN-PACU ORDER X 4 DOSES ONLY Ferrous Sulfate 325 mg 02/02/18 17:30 02/04/18 09:48 Feosol - PO 325 mg BIDWM [facility] Administration Furosemide 20 mg 02/03/18 10:00 02/04/18 09:48 Lasix - PO 20 mg DAILY [facility] Administration Heparin Sodium (Porcine) 5,000 unit 02/03/18 22:00 02/04/18 05:59 Heparin - SQ 5,000 unit TID [facility] Administration Lactic Acid 1 applic 02/03/18 16:33 Lac-Hydrin 12 TP Q24H PRN DRY SKIN Losartan Potassium 100 mg 02/03/18 10:00 02/04/18 09:48 Cozaar - PO 100 mg DAILY [facility] Administration Metoprolol Succinate 50 mg 02/03/18 10:00 02/04/18 09:48 Toprol Xl - PO 50 mg DAILY [facility] Administration Morphine Sulfate 4 mg 02/02/18 13:38 02/03/18 01:47 Morphine Sulfate IVPUSH 4 mg Q4H PRN Administration PAIN LEVEL 7 - 10 Ondansetron HCl 4 mg 02/02/18 13:50 Zofran Injection IVPUSH Q6H PRN NAUSEA AND/OR VOMITING Oxycodone HCl 5 mg 02/02/18 14:33 02/03/18 22:24 Roxicodone - PO 5 mg Q4H PRN Administration PAIN LEVEL 4 - 6 ASSESSMENT/PLAN: Patient is a 77 year old female with a significant past medical history of chronic right lower extremity edema s/p right 3rd toe amputation and s/p R SFA stenting. She presents to the hospital for R foot bleeding gangrenous right 4th toe. Vascular Right foot chronic wounds/gangrene: s/p right BKA on 02/02/2018. On Zosyn and Vanco. Pain managed managed with oxycodone with caution secondary to confusion , hallucination side effects. Patient denies pain. Will need prosthetic fitting once site heals. PAD: asa, plavix on hold, resume per vascular. Card: Hypertension: BP stable. on Toprol, Losartan. Diastolic CHF: on Lasix. Heme: Anemia: stable, monitor hmg/hct post surgery. s/p PRBC transfusions. On ferrous sulfate. Renal MYA, resolved fen tolerating PO monitor electrolytes low salt diet prophy Heparin bid incentive spirometer Visit type - Emergency Visit Emergency Visit: Yes ED Registration Date: 01/27/18 Care time: The patient presented to the Emergency Department on the above date and was hospitalized for further evaluation of their emergent condition. - New Patient This patient is new to me today: Yes Date on this admission: 02/04/18 - Critical Care Critical Care patient: No - Discharge Referral Referred to [facility] Med P.C.: No
[2018-02-04 12:58] LABS: BASO % 0.3 % (0-2.0); EOS % 0.6 % (0-4.5); HEMATOCRIT 33.9 % (32.4-45.2); HEMOGLOBIN 11.4 GM/dL (10.7-15.3); LYMPH % 15.8 % (8-40); MCHC 33.5 g/dl (32.0-36.0); MEAN CELL VOLUME 83.6 fl (80-96); MEAN PLT VOLUME 7.1 fl (7.5-11.1); MONO % 14.8 % (3.8-10.2); NEUT % 68.5 % (42.8-82.8); PLATELET COUNT 327 K/MM3 (134-434); RBC 4.05 M/mm3 (3.60-5.2); RDW 14.2 % (11.6-15.6); WHITE BLOOD COUNT 9.4 K/mm3 (4.0-10.0)
[2018-02-04 13:22] LABS: ALBUMIN 2.4 g/dl (3.4-5.0); ANION GAP 9 MMOL/L (8-16); BLOOD UREA NITROGEN 9 mg/dL (7-18); CALCIUM 8.6 mg/dL (8.5-10.1); CHLORIDE 98 mmol/L (98-107); CO2 27 mmol/L (21-32); CREATININE 0.6 mg/dL (0.55-1.02); GLUCOSE,RANDOM 94 mg/dL (74-106); POTASSIUM 3.8 mmol/L (3.5-5.1); SGOT/AST 18 U/L (15-37); SGPT/ALT 10 U/L (12-78); SODIUM 134 mmol/L (136-145)
[2018-02-04 13:23] LABS: ALK PHOS 59 U/L (45-117); BILIRUBIN,TOTAL 0.7 mg/dL (0.2-1.0); TOT PROT 6.3 g/dl (6.4-8.2)
[2018-02-04 16:41] LABS: HEMATOCRIT 33.8 % (32.4-45.2); HEMOGLOBIN 11.6 GM/dL (10.7-15.3); MCH 28.6 pg (25.7-33.7); MCHC 34.4 g/dl (32.0-36.0); MEAN CELL VOLUME 83.3 fl (80-96); PLATELET COUNT 363 K/MM3 (134-434); RBC 4.05 M/mm3 (3.60-5.2); RDW 14.7 % (11.6-15.6); WHITE BLOOD COUNT 9.8 K/mm3 (4.0-10.0)
[2018-02-04] MEDS: morphine SULFATE 4 MG/ML VIAL IVPUSH PRN (22:11)
[2018-02-05] MEDS ORDERED: PT OWN MED DRAWER 7, Y5N ONE ×2 (06:16→09:42)
[2018-02-05] MEDS: morphine SULFATE 4 MG/ML VIAL IVPUSH PRN (07:11)
[2018-02-05] MEDS: HEPARIN NA (PORCINE) 5,000 UNITS/ML 1ML VIAL SQ SCH ×3 (07:11→21:15)
[2018-02-05 08:51] LABS: BASO % 0.4 % (0-2.0); EOS % 1.3 % (0-4.5); HEMATOCRIT 33.4 % (32.4-45.2); HEMOGLOBIN 11.2 GM/dL (10.7-15.3); LYMPH % 15.7 % (8-40); MCH 28.3 pg (25.7-33.7); MCHC 33.6 g/dl (32.0-36.0); MEAN CELL VOLUME 84.3 fl (80-96); MEAN PLT VOLUME 6.8 fl (7.5-11.1); MONO % 13.7 % (3.8-10.2); NEUT % 68.9 % (42.8-82.8); PLATELET COUNT 329 K/MM3 (134-434); RBC 3.96 M/mm3 (3.60-5.2); RDW 14.3 % (11.6-15.6); WHITE BLOOD COUNT 8.9 K/mm3 (4.0-10.0)
[2018-02-05] MEDS: FERROUS SO4 325 MG TABLET (FP) PO SCH ×2 (08:56→18:41)
[2018-02-05 09:09] LABS: ALBUMIN 2.3 g/dl (3.4-5.0); ANION GAP 10 MMOL/L (8-16); BLOOD UREA NITROGEN 10 mg/dL (7-18); CALCIUM 8.3 mg/dL (8.5-10.1); CHLORIDE 100 mmol/L (98-107); CO2 26 mmol/L (21-32); CREATININE 0.6 mg/dL (0.55-1.02); GLUCOSE,RANDOM 92 mg/dL (74-106); POTASSIUM 3.9 mmol/L (3.5-5.1); SGOT/AST 15 U/L (15-37); SGPT/ALT 9 U/L (12-78); SODIUM 136 mmol/L (136-145)
[2018-02-05 09:11] LABS: ALK PHOS 60 U/L (45-117); BILIRUBIN,TOTAL 0.6 mg/dL (0.2-1.0); TOT PROT 6.2 g/dl (6.4-8.2)
[2018-02-05] MEDS: LOSARTAN POTASSIUM 50 MG TABLET (FP) PO SCH (09:13)
[2018-02-05] MEDS: oxyCODONE HCL 5 MG TABLET PO PRN ×3 (09:13→22:31)
[2018-02-05] MEDS: FUROSEMIDE 20 MG TABLET (FP) PO SCH (09:13)
[2018-02-05] MEDS: COLLAGENASE CLOSTRIDIUM HIST. 30 GRAMS TUBE TP SCH (11:39)
--- NOTE | 2018-02-05 12:21 | PN ---
Progress Note (short form) - Note Progress Note: Chief Complaint: Events noted, notes reviewed, resting in bed, denies any chest pain or dyspnea, complaining of left foot discomfort History of Present Illness: Seen and examined. Events noted, notes reviewed, resting in bed, denies any chest pain or dyspnea, complaining of left foot discomfort Echocardiography dated 01/16/2018 revealed normal LV and RV size and function, LVEF 60-65%, mild MR and mild TR with RVSP 32 mmHg Current Medications: Current Medications Acetaminophen (Tylenol -) 650 mg PO Q4H PRN PRN Reason: PAIN LEVEL 1 - 3 Collagenase (Santyl -) 1 applic TP DAILY [facility]; Protocol Last Admin: 02/05/18 11:39 Dose: Not Given Fentanyl (Sublimaze Injection -) 50 mcg IVPUSH [id number] PRN PRN Reason: PAIN-PACU ORDER X 4 DOSES ONLY Last Admin: 02/02/18 14:30 Dose: 50 mcg Ferrous Sulfate (Feosol -) 325 mg PO BIDWM [facility] Last Admin: 02/05/18 08:56 Dose: 325 mg Furosemide (Lasix -) 20 mg PO DAILY [facility] Last Admin: 02/05/18 09:13 Dose: 20 mg Heparin Sodium (Porcine) (Heparin -) 5,000 unit SQ TID [facility] Last Admin: 02/05/18 07:11 Dose: 5,000 unit Lactic Acid (Lac-Hydrin 12) 1 applic TP Q24H PRN PRN Reason: DRY SKIN Losartan Potassium (Cozaar -) 100 mg PO DAILY [facility] Last Admin: 02/05/18 09:13 Dose: 100 mg Metoprolol Succinate (Toprol Xl -) 50 mg PO DAILY [facility] Last Admin: 02/05/18 09:13 Dose: 50 mg Morphine Sulfate (Morphine Sulfate) 4 mg IVPUSH Q4H PRN PRN Reason: PAIN LEVEL 7 - 10 Last Admin: 02/05/18 07:11 Dose: 4 mg Ondansetron HCl (Zofran Injection) 4 mg IVPUSH Q6H PRN PRN Reason: NAUSEA AND/OR VOMITING Oxycodone HCl (Roxicodone -) 5 mg PO Q4H PRN PRN Reason: PAIN LEVEL 4 - 6 Last Admin: 02/05/18 09:13 Dose: 5 mg - Objective Vital Signs: Last Vital Signs Temp Pulse Resp BP Pulse Ox 98.6 F 88 16 128/54 97 02/05/18 09:14 02/05/18 09:14 02/05/18 09:14 02/05/18 09:14 02/04/18 21:00 Intake & Output 02/02/18 02/03/18 02/04/18 02/05/18 23:59 23:59 23:59 23:59 Intake Total 890 1450 700 Output Total 1250 2850 850 300 Balance -360 -1400 -150 -300 Weight 136 lb Neck: Supple Negative JVD no bruit Cardiovascular: S1 S2 Regular Rate Rhythm Grade 1-2/6 SM Respiratory: Clear to A&P Bilaterally Gastrointestinal: Soft Benign Normal Bowel Sounds Ext: Negative Edema Right Labs: CBC, BMP 02/05/18 08:30 02/05/18 08:30 Assessment/Plan: ASSESSMENT: 1. POD#3 post right BKA for right foot gangrene, PAD with right foot gangrene post RLE angiogram and peroneal artery angioplasty 2. CAD angina pectoris stable 3. Diastolic LV dysfunction with class 0 NYHA classification LV failure 4. HTN 5. Acute on chronic CKD, resolved 6. Anemia PLAN: 1. Continue Toprol XL 2. Continue Cozaar 3. Recommend resumption of ASA and Plavix unless contraindicated 4. Continue diuretics/Lasix Gabby Christianson MD
--- NOTE | 2018-02-05 18:01 | PN ---
Physical Exam: SUBJECTIVE: Patient seen and examined at the bedside. Feels well today, denies pain. Hopeful on getting a prosthetic and able to move around more. OBJECTIVE: Vital Signs Period Temp Pulse Resp BP Sys/Mcgill Pulse Ox Last 24 Hr 98.6 F-99.4 F 86-94 16-18 128-152/54-73 97 GENERAL: The patient is awake, alert, and fully oriented, in no acute distress. HEAD: Normal with no signs of trauma. EYES: PERRL, extraocular movements intact, sclera anicteric, conjunctiva clear. No ptosis. ENT: Ears normal, nares patent, oropharynx clear without exudates, moist mucous membranes. NECK: Trachea midline, full range of motion, supple. ABDOMEN: Soft, nontender, nondistended, normoactive bowel sounds, no guarding, no rebound, no hepatosplenomegaly, no masses. EXTREMITIES: a/p right BKA PSYCH: Normal mood, normal affect Laboratory Results - last 24 hr 02/01/18 02/05/18 02/05/18 13:30 08:30 08:30 WBC 8.9 RBC 3.96 Hgb 11.2 Hct 33.4 MCV 84.3 MCH 28.3 MCHC 33.6 RDW 14.3 Plt Count 329 MPV 6.8 L Absolute Neuts (auto) 6.1 Neutrophils % 68.9 Lymphocytes % 15.7 Monocytes % 13.7 H Eosinophils % 1.3 D Basophils % 0.4 Nucleated RBC % 0 Sodium 136 Potassium 3.9 Chloride 100 Carbon Dioxide 26 Anion Gap 10 BUN 10 Creatinine 0.6 Creat Clearance w eGFR > 60 Random Glucose 92 Calcium 8.3 L Total Bilirubin 0.6 AST 15 ALT 9 L Alkaline Phosphatase 60 Total Protein 6.2 L Albumin 2.3 L Blood Type O POSITIVE Antibody Screen Negative Crossmatch See Detail Active Medications Generic Name Dose Route Start Last Admin Trade Name Freq PRN Reason Stop Dose Admin Acetaminophen 650 mg 02/02/18 14:33 Tylenol - PO Q4H PRN PAIN LEVEL 1 - 3 Collagenase 1 applic 02/03/18 10:00 02/05/18 11:39 Santyl - TP Not Given DAILY [facility] Protocol Fentanyl 50 mcg 02/02/18 13:50 02/02/18 14:30 Sublimaze Injection - IVPUSH 50 mcg [id number] PRN Administration PAIN-PACU ORDER X 4 DOSES ONLY Ferrous Sulfate 325 mg 02/02/18 17:30 02/05/18 08:56 Feosol - PO 325 mg BIDWM [facility] Administration Furosemide 20 mg 02/03/18 10:00 02/05/18 09:13 Lasix - PO 20 mg DAILY [facility] Administration Heparin Sodium (Porcine) 5,000 unit 02/03/18 22:00 02/05/18 14:21 Heparin - SQ 5,000 unit TID [facility] Administration Lactic Acid 1 applic 02/03/18 16:33 Lac-Hydrin 12 TP Q24H PRN DRY SKIN Losartan Potassium 100 mg 02/03/18 10:00 02/05/18 09:13 Cozaar - PO 100 mg DAILY [facility] Administration Metoprolol Succinate 50 mg 02/03/18 10:00 02/05/18 09:13 Toprol Xl - PO 50 mg DAILY [facility] Administration Morphine Sulfate 4 mg 02/02/18 13:38 02/05/18 07:11 Morphine Sulfate IVPUSH 4 mg Q4H PRN Administration PAIN LEVEL 7 - 10 Ondansetron HCl 4 mg 02/02/18 13:50 Zofran Injection IVPUSH Q6H PRN NAUSEA AND/OR VOMITING Oxycodone HCl 5 mg 02/02/18 14:33 02/05/18 14:21 Roxicodone - PO 5 mg Q4H PRN Administration PAIN LEVEL 4 - 6 ASSESSMENT/PLAN: Patient is a 77 year old female with a significant past medical history of chronic right lower extremity edema s/p right 3rd toe amputation and s/p R SFA stenting. She presents to the hospital for R foot bleeding gangrenous right 4th toe. Vascular Right foot chronic wounds/gangrene: s/p right BKA on 02/02/2018. On Zosyn and Vanco. Pain managed managed with oxycodone with caution secondary to confusion , hallucination side effects. Patient denies pain on exam. Will need prosthetic fitting once site heals. PAD: asa, plavix on hold, resume per vascular. Card: Hypertension: BP stable. on Toprol, Losartan. Diastolic CHF: on Lasix. Heme: Anemia: stable, monitor hmg/hct post surgery. s/p PRBC transfusions. On ferrous sulfate. Renal MYA, resolved fen tolerating PO monitor electrolytes low salt diet prophy Heparin bid incentive spirometer Visit type - Emergency Visit Emergency Visit: Yes ED Registration Date: 01/27/18 Care time: The patient presented to the Emergency Department on the above date and was hospitalized for further evaluation of their emergent condition. - New Patient This patient is new to me today: No - Critical Care Critical Care patient: No - Discharge Referral Referred to [facility] Med P.C.: No
[2018-02-06] MEDS: HEPARIN NA (PORCINE) 5,000 UNITS/ML 1ML VIAL SQ SCH ×3 (05:40→21:24)
[2018-02-06] MEDS: oxyCODONE HCL 5 MG TABLET PO PRN ×2 (06:24→10:16)
[2018-02-06 06:56] LABS: BASO % 0.3 % (0-2.0); EOS % 2.7 % (0-4.5); HEMATOCRIT 34.9 % (32.4-45.2); HEMOGLOBIN 11.6 GM/dL (10.7-15.3); LYMPH % 17.7 % (8-40); MCH 28.2 pg (25.7-33.7); MCHC 33.3 g/dl (32.0-36.0); MEAN CELL VOLUME 84.7 fl (80-96); MONO % 12.1 % (3.8-10.2); NEUT % 67.2 % (42.8-82.8); PLATELET COUNT 346 K/MM3 (134-434); RBC 4.11 M/mm3 (3.60-5.2); RDW 14.7 % (11.6-15.6); WHITE BLOOD COUNT 8.2 K/mm3 (4.0-10.0)
[2018-02-06 07:16] LABS: ALBUMIN 2.5 g/dl (3.4-5.0); ANION GAP 10 MMOL/L (8-16); BLOOD UREA NITROGEN 12 mg/dL (7-18); CALCIUM 8.9 mg/dL (8.5-10.1); CHLORIDE 99 mmol/L (98-107); CO2 27 mmol/L (21-32); CREATININE 0.6 mg/dL (0.55-1.02); GLUCOSE,RANDOM 97 mg/dL (74-106); POTASSIUM 4.2 mmol/L (3.5-5.1); SGOT/AST 15 U/L (15-37); SGPT/ALT 13 U/L (12-78); SODIUM 136 mmol/L (136-145)
[2018-02-06 07:18] LABS: ALK PHOS 63 U/L (45-117); BILIRUBIN,TOTAL 0.5 mg/dL (0.2-1.0); TOT PROT 6.5 g/dl (6.4-8.2)
--- NOTE | 2018-02-06 08:11 | PN ---
Progress Note (short form) - Note Progress Note: POD #4 Alert. Doing well. No complaints. No acute events per RN notes. Patient wearing her knee immobilizer as instructed. AVSS. Afebrile. Gen: nad RLE: dressing taken down on rounds. [place] intact. No signs of infection. Healing nicely. Problem List - Problems (1) Status post below knee amputation of right lower extremity Assessment/Plan: POD #4 Dressing changed on rounds. Cont care per medicine. PT No further surgical intervention. Re-consult PRN. On behalf of Dr. Gold, thank you for the opportunity to participate in your patient's care. Code(s): Z89.511 - ACQUIRED ABSENCE OF RIGHT LEG BELOW KNEE (2) PAD (peripheral artery disease) Code(s): I73.9 - PERIPHERAL VASCULAR DISEASE, UNSPECIFIED
[2018-02-06] MEDS: FERROUS SO4 325 MG TABLET (FP) PO SCH ×2 (08:36→17:22)
--- NOTE | 2018-02-06 09:11 | PN ---
Progress Note (short form) - Note Progress Note: Chief Complaint: Events noted, notes reviewed, resting in bed, denies any chest pain or dyspnea History of Present Illness: Seen and examined. Events noted, notes reviewed, resting in bed, denies any chest pain or dyspnea Echocardiography dated 01/16/2018 revealed normal LV and RV size and function, LVEF 60-65%, mild MR and mild TR with RVSP 32 mmHg Current Medications: Current Medications Acetaminophen (Tylenol -) 650 mg PO Q4H PRN PRN Reason: PAIN LEVEL 1 - 3 Collagenase (Santyl -) 1 applic TP DAILY [facility]; Protocol Last Admin: 02/05/18 11:39 Dose: Not Given Fentanyl (Sublimaze Injection -) 50 mcg IVPUSH [id number] PRN PRN Reason: PAIN-PACU ORDER X 4 DOSES ONLY Last Admin: 02/02/18 14:30 Dose: 50 mcg Ferrous Sulfate (Feosol -) 325 mg PO BIDWM [facility] Last Admin: 02/06/18 08:36 Dose: 325 mg Furosemide (Lasix -) 20 mg PO DAILY [facility] Last Admin: 02/05/18 09:13 Dose: 20 mg Heparin Sodium (Porcine) (Heparin -) 5,000 unit SQ TID [facility] Last Admin: 02/06/18 05:40 Dose: 5,000 unit Lactic Acid (Lac-Hydrin 12) 1 applic TP Q24H PRN PRN Reason: DRY SKIN Losartan Potassium (Cozaar -) 100 mg PO DAILY [facility] Last Admin: 02/05/18 09:13 Dose: 100 mg Metoprolol Succinate (Toprol Xl -) 50 mg PO DAILY [facility] Last Admin: 02/05/18 09:13 Dose: 50 mg Morphine Sulfate (Morphine Sulfate) 4 mg IVPUSH Q4H PRN PRN Reason: PAIN LEVEL 7 - 10 Last Admin: 02/05/18 07:11 Dose: 4 mg Ondansetron HCl (Zofran Injection) 4 mg IVPUSH Q6H PRN PRN Reason: NAUSEA AND/OR VOMITING Oxycodone HCl (Roxicodone -) 5 mg PO Q4H PRN PRN Reason: PAIN LEVEL 4 - 6 Last Admin: 02/06/18 06:24 Dose: 5 mg - Objective Vital Signs: Last Vital Signs Temp Pulse Resp BP Pulse Ox 98.8 F 94 H 18 139/67 99 02/06/18 06:08 02/06/18 06:08 02/06/18 06:08 02/06/18 06:08 02/05/18 21:00 Intake & Output 02/03/18 02/04/18 02/05/18 02/06/18 23:59 23:59 23:59 23:59 Intake Total 1450 700 Output Total 2850 850 1000 400 Balance -1400 -150 -1000 -400 Weight 136 lb Neck: Supple Negative JVD no bruit Cardiovascular: S1 S2 Regular Rate Rhythm Grade 1-2/6 SM Respiratory: Clear to A&P Bilaterally Gastrointestinal: Soft Benign Normal Bowel Sounds Ext: Dressing in Situ Labs: CBC, BMP 02/06/18 06:30 02/06/18 06:30 Assessment/Plan: ASSESSMENT: 1. POD#4 post right BKA for right foot gangrene, PAD with right foot gangrene post RLE angiogram and peroneal artery angioplasty 2. CAD angina pectoris stable 3. Diastolic LV dysfunction with class 0 NYHA classification LV failure 4. HTN 5. Acute on chronic CKD, resolved 6. Anemia PLAN: 1. Continue Toprol XL 2. Continue Cozaar 3. Recommend resumption of ASA and Plavix unless contraindicated, not ordered as of yet 4. Continue diuretics/Lasix with caution Gabby Christianson MD
[2018-02-06] MEDS ORDERED: ASPIRIN COATED 81 MG TABLET.EC PO SCH (10:00)
[2018-02-06] MEDS: FUROSEMIDE 20 MG TABLET (FP) PO SCH (10:15)
[2018-02-06] MEDS: CLOPIDOGREL BISULFATE 75 MG TABLET (FP) PO SCH (10:15)
[2018-02-06] MEDS: LOSARTAN POTASSIUM 50 MG TABLET (FP) PO SCH (10:15)
[2018-02-06] MEDS ORDERED: BISACODYL 5 MG TABLET.DR (FP) PO ONE (10:30)
[2018-02-06] MEDS ORDERED: PT OWN MED DRAWER 7, Y5N ONE (10:41)
[2018-02-06] MEDS: COLLAGENASE CLOSTRIDIUM HIST. 30 GRAMS TUBE TP SCH (10:43)
[2018-02-06] MEDS: morphine SULFATE 4 MG/ML VIAL IVPUSH PRN (10:43)
[2018-02-06] MEDS: POLYETHYLENE GLYCOL 3350 119 GM BTL PO SCH (10:43)
--- NOTE | 2018-02-06 15:03 | PN ---
Physical Exam: SUBJECTIVE: Patient seen and examined. She feels better after pain medications, she has not had a bm. Gonsalves replaced last night OBJECTIVE: Vital Signs Period Temp Pulse Resp BP Sys/Mcgill Pulse Ox Last 24 Hr 98.0 F-99.8 F 85-94 18-20 98-148/59-73 99 PE Neuro: alert, awake, cn 2-12intact Pulm: CTAB CV: s1 s2 rrr no mrg Abd: s nt nd + bs : gonsalves Ext: right foot BKA, brace in place Laboratory Results - last 24 hr 02/01/18 02/06/18 02/06/18 13:30 06:30 06:30 WBC 8.2 RBC 4.11 Hgb 11.6 Hct 34.9 MCV 84.7 MCH 28.2 MCHC 33.3 RDW 14.7 Plt Count 346 MPV 7.0 L Absolute Neuts (auto) 5.5 Neutrophils % 67.2 Lymphocytes % 17.7 Monocytes % 12.1 H Eosinophils % 2.7 D Basophils % 0.3 Nucleated RBC % 0 Sodium 136 Potassium 4.2 Chloride 99 Carbon Dioxide 27 Anion Gap 10 BUN 12 Creatinine 0.6 Creat Clearance w eGFR > 60 Random Glucose 97 Calcium 8.9 Total Bilirubin 0.5 AST 15 ALT 13 Alkaline Phosphatase 63 Total Protein 6.5 Albumin 2.5 L Blood Type O POSITIVE Antibody Screen Negative Crossmatch See Detail Active Medications Generic Name Dose Route Start Last Admin Trade Name Freq PRN Reason Stop Dose Admin Acetaminophen 650 mg 02/02/18 14:33 Tylenol - PO Q4H PRN PAIN LEVEL 1 - 3 Aspirin 162 mg 02/06/18 10:00 02/06/18 10:15 Ecotrin - PO 162 mg DAILY [facility] Administration Clopidogrel Bisulfate 75 mg 02/06/18 10:00 02/06/18 10:15 Plavix - PO 75 mg DAILY [facility] Administration Collagenase 1 applic 02/03/18 10:00 02/06/18 10:43 Santyl - TP Not Given DAILY [facility] Protocol Fentanyl 50 mcg 02/02/18 13:50 02/02/18 14:30 Sublimaze Injection - IVPUSH 50 mcg [id number] PRN Administration PAIN-PACU ORDER X 4 DOSES ONLY Ferrous Sulfate 325 mg 02/02/18 17:30 02/06/18 08:36 Feosol - PO 325 mg BIDWM [facility] Administration Furosemide 20 mg 02/03/18 10:00 02/06/18 10:15 Lasix - PO 20 mg DAILY [facility] Administration Heparin Sodium (Porcine) 5,000 unit 02/03/18 22:00 02/06/18 14:59 Heparin - SQ 5,000 unit TID [facility] Administration Lactic Acid 1 applic 02/03/18 16:33 Lac-Hydrin 12 TP Q24H PRN DRY SKIN Losartan Potassium 100 mg 02/03/18 10:00 02/06/18 10:15 Cozaar - PO 100 mg DAILY [facility] Administration Metoprolol Succinate 50 mg 02/03/18 10:00 02/06/18 10:15 Toprol Xl - PO 50 mg DAILY [facility] Administration Morphine Sulfate 4 mg 02/02/18 13:38 02/06/18 10:43 Morphine Sulfate IVPUSH 4 mg Q4H PRN Administration PAIN LEVEL 7 - 10 Ondansetron HCl 4 mg 02/02/18 13:50 Zofran Injection IVPUSH Q6H PRN NAUSEA AND/OR VOMITING Oxycodone HCl 5 mg 02/02/18 14:33 02/06/18 10:16 Roxicodone - PO 5 mg Q4H PRN Administration PAIN LEVEL 4 - 6 Polyethylene Glycol 17 gm 02/06/18 10:30 02/06/18 10:43 Miralax (For Daily Use) - PO 17 gm DAILY [facility] Administration Assessment: 77 year old female with pmxh HTN, right 3rd toe amputation, chronic nonhealing foot wound with gangrene, PAD, s/p RLE angiogram and angioplasty 01/12 admitted with active bleeding and gangrenous right 4th toe. Plan: 1. 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 Acute blood loss anemia - Hgb stable, s/p packed cell infusions intra and post op 3. HTN, diastolic CHF - Toprol xl 50mg daily - Losartan 100mg daily - Lasix 20mg - BP controlled off hctz, would d/c on discharge 4. PAD - ASA, plavix 5. Iron deficiency anemia - Venofer 200mg x1 01/28 - Started ferrous sulfate 6. MYA - Resolved 7. Urinary retention - DC gonsalves today - Bowel regimen given Visit type - Emergency Visit Emergency Visit: Yes ED Registration Date: 01/27/18 Care time: The patient presented to the Emergency Department on the above date and was hospitalized for further evaluation of their emergent condition. - New Patient This patient is new to me today: No - Critical Care Critical Care patient: No - Discharge Referral Referred to [facility] No
[2018-02-06] MEDS ORDERED: TAMSULOSIN HCL 0.4 MG CAP.ER.24H (FP) PO ONE (18:30)
--- NOTE | 2018-02-06 18:41 | PATH ---
Surgical Pathology Report Patient Name: TREMAINE SPARKS Med. Rec. #: [id number] /Age/Gender: 1940 (Age: 77) / F Account: [id number] Location: [facility] MED/SURG Taken: 02/02/2018 Received: 02/03/2018 Reported: 02/06/2018 Physicians: Dennis Newman MD Specimen(s) Received RIGHT BELOW THE KNEE EXTREMITY AMPUTATION Clinical History Right foot gangrene Final Diagnosis RIGHT BELOW KNEE LEG, AMPUTATION: BELOW KNEE AMPUTATED LEG SHOWING SKIN AND SOFT TISSUE WITH ULCERATION, SEVERE ACUTE AND CHRONIC INFLAMMATION, AND ABSCESS FORMATION. BONE WITH ACUTE OSTEOMYELITIS. ATHEROSCLEROSIS WITH FOCAL LUMINAL OCCLUSION SEEN IN ANTERIOR, POSTERIOR TIBIAL ARTERIES, AND DORSALIS PEDIS. Electronically Signed Clifton Foster M.D. Gross Description Received fresh labeled "right below the knee leg," is a 30 cm in length right below the knee amputation. The foot measures 24 cm from heel to toe. There is a 5.5 cm in length exposed portion of tibia and fibula present at the proximal aspect. The third toe has been previously amputated. The epidermal surface displays a 9.0 x 8.0 cm ulcerated, gangrenous lesion at the distal aspect of the foot, involving the remaining 4 digits and the previous amputation site. The lesion involves the underlying bone. Sectioning of the vasculature reveals focal, segmental, moderate atherosclerosis. Bander sections are submitted in 7 cassettes as follows: 1-lesion; 2-lesion with underlying bone, following decalcification; 3-skin and soft tissue margin; 4-bone margin, following decalcification; 5-anterior tibial artery; 6-posterior tibial artery; 7-dorsalis pedis. /02/03/2018 saudi/02/03/2018
[2018-02-06] MEDS ORDERED: LACTULOSE 20 GM/30 ML UDC (FOR ORAL USE ONLY) PO ONE (19:00)
[2018-02-06] MEDS: DOCUSATE SODIUM 100 MG CAPSULE (FP) PO SCH (21:24)
[2018-02-07] MEDS: oxyCODONE HCL 5 MG TABLET PO PRN (01:19)
[2018-02-07] MEDS: DOCUSATE SODIUM 100 MG CAPSULE (FP) PO SCH ×3 (05:56→21:08)
[2018-02-07] MEDS: HEPARIN NA (PORCINE) 5,000 UNITS/ML 1ML VIAL SQ SCH ×3 (05:56→21:08)
--- NOTE | 2018-02-07 09:29 | PN ---
Physical Exam: SUBJECTIVE: Patient seen and examined. She feels well, no pain at this time, having breakfast. Believes she has urinated and had a BM, per RN just BM. OBJECTIVE: Vital Signs Period Temp Pulse Resp BP Sys/Mcgill Pulse Ox Last 24 Hr 98.0 F-98.7 F 82-92 18-20 118-156/50-69 99 PE Neuro: alert, awake, cn 2-12intact Pulm: CTAB CV: s1 s2 rrr no mrg Abd: s nt nd + bs Ext: right foot BKA, brace in place Laboratory Results - last 24 hr 02/01/18 13:30 Blood Type O POSITIVE Antibody Screen Negative Crossmatch See Detail Active Medications Generic Name Dose Route Start Last Admin Trade Name Freq PRN Reason Stop Dose Admin Acetaminophen 650 mg 02/02/18 14:33 02/07/18 01:20 Tylenol - PO 650 mg Q4H PRN Administration PAIN LEVEL 1 - 3 Aspirin 81 mg 02/06/18 15:08 Ecotrin - PO DAILY [facility] Clopidogrel Bisulfate 75 mg 02/06/18 10:00 02/06/18 10:15 Plavix - PO 75 mg DAILY [facility] Administration Collagenase 1 applic 02/03/18 10:00 02/06/18 10:43 Santyl - TP Not Given DAILY [facility] Protocol Docusate Sodium 100 mg 02/06/18 22:00 02/07/18 05:56 Colace - PO 100 mg TID [facility] Administration Ferrous Sulfate 325 mg 02/02/18 17:30 02/06/18 17:22 Feosol - PO 325 mg BIDWM [facility] Administration Furosemide 20 mg 02/03/18 10:00 02/06/18 10:15 Lasix - PO 20 mg DAILY [facility] Administration Heparin Sodium (Porcine) 5,000 unit 02/03/18 22:00 02/07/18 05:56 Heparin - SQ 5,000 unit TID [facility] Administration Lactic Acid 1 applic 02/03/18 16:33 Lac-Hydrin 12 TP Q24H PRN DRY SKIN Losartan Potassium 100 mg 02/03/18 10:00 02/06/18 10:15 Cozaar - PO 100 mg DAILY [facility] Administration Metoprolol Succinate 50 mg 02/03/18 10:00 02/06/18 10:15 Toprol Xl - PO 50 mg DAILY [facility] Administration Ondansetron HCl 4 mg 02/02/18 13:50 Zofran Injection IVPUSH Q6H PRN NAUSEA AND/OR VOMITING Oxycodone HCl 5 mg 02/02/18 14:33 02/07/18 01:19 Roxicodone - PO 5 mg Q4H PRN Administration PAIN LEVEL 4 - 6 Polyethylene Glycol 17 gm 02/06/18 10:30 02/06/18 10:43 Miralax (For Daily Use) - PO 17 gm DAILY [facility] Administration Tamsulosin HCl 0.4 mg 02/07/18 09:00 Flomax - PO BID [facility] Assessment: 77 year old female with pmxh HTN, right 3rd toe amputation, chronic nonhealing foot wound with gangrene, PAD, s/p RLE angiogram and angioplasty 01/12 admitted with active bleeding and gangrenous right 4th toe. Plan: 1. Urinary retention - Increase flomax BID - Voiding slow likely due to oxycodone and decreased mobility - Bladder scan in 1 hour - Straight cath as needed - D/w RN 2. 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 Acute blood loss anemia - Hgb stable, s/p packed cell infusions intra and post op 4. HTN, diastolic CHF - Toprol xl 50mg daily - Losartan 100mg daily - Lasix 20mg - BP controlled off hctz, would d/c on discharge 5. PAD - ASA, plavix 6. Iron deficiency anemia - Dose of venofer given - Continue ferrous sulfate 7. MYA - Resolved Dispo: - SNF when voiding freely Visit type - Emergency Visit Emergency Visit: Yes ED Registration Date: 01/27/18 Care time: The patient presented to the Emergency Department on the above date and was hospitalized for further evaluation of their emergent condition. - New Patient This patient is new to me today: No - Critical Care Critical Care patient: No
[2018-02-07] MEDS: TAMSULOSIN HCL 0.4 MG CAP.ER.24H (FP) PO SCH ×3 (10:11→17:53)
[2018-02-07] MEDS: CLOPIDOGREL BISULFATE 75 MG TABLET (FP) PO SCH (10:11)
[2018-02-07] MEDS: ASPIRIN COATED 81 MG TABLET.EC PO SCH (10:11)
[2018-02-07] MEDS: LOSARTAN POTASSIUM 50 MG TABLET (FP) PO SCH (10:11)
[2018-02-07] MEDS: FUROSEMIDE 20 MG TABLET (FP) PO SCH (10:11)
[2018-02-07] MEDS: FERROUS SO4 325 MG TABLET (FP) PO SCH ×2 (10:12→17:53)
[2018-02-07] MEDS: POLYETHYLENE GLYCOL 3350 119 GM BTL PO SCH (10:13)
[2018-02-07] MEDS: COLLAGENASE CLOSTRIDIUM HIST. 30 GRAMS TUBE TP SCH (10:14)
[2018-02-07 10:42] LABS: ANION GAP 6 MMOL/L (8-16); BLOOD UREA NITROGEN 9 mg/dL (7-18); CALCIUM 8.6 mg/dL (8.5-10.1); CHLORIDE 98 mmol/L (98-107); CO2 29 mmol/L (21-32); CREATININE 0.6 mg/dL (0.55-1.02); GLUCOSE,RANDOM 114 mg/dL (74-106); POTASSIUM 3.9 mmol/L (3.5-5.1); SODIUM 133 mmol/L (136-145)
--- NOTE | 2018-02-07 13:27 | PN ---
Progress Note (short form) - Note Progress Note: Chief Complaint: Events noted, notes reviewed, sitting in a chair, denies any chest pain or dyspnea History of Present Illness: Seen and examined. Events noted, notes reviewed, sitting in a chair, denies any chest pain or dyspnea Echocardiography dated 01/16/2018 revealed normal LV and RV size and function, LVEF 60-65%, mild MR and mild TR with RVSP 32 mmHg Current Medications: Current Medications Acetaminophen (Tylenol -) 650 mg PO Q4H PRN PRN Reason: PAIN LEVEL 1 - 3 Last Admin: 02/07/18 01:20 Dose: 650 mg Aspirin (Ecotrin -) 81 mg PO DAILY [facility] Last Admin: 02/07/18 10:11 Dose: 81 mg Clopidogrel Bisulfate (Plavix -) 75 mg PO DAILY [facility] Last Admin: 02/07/18 10:11 Dose: 75 mg Collagenase (Santyl -) 1 applic TP DAILY [facility]; Protocol Last Admin: 02/07/18 10:14 Dose: Not Given Docusate Sodium (Colace -) 100 mg PO TID [facility] Last Admin: 02/07/18 05:56 Dose: 100 mg Ferrous Sulfate (Feosol -) 325 mg PO BIDWM [facility] Last Admin: 02/07/18 10:12 Dose: 325 mg Furosemide (Lasix -) 20 mg PO DAILY [facility] Last Admin: 02/07/18 10:11 Dose: 20 mg Heparin Sodium (Porcine) (Heparin -) 5,000 unit SQ TID [facility] Last Admin: 02/07/18 05:56 Dose: 5,000 unit Lactic Acid (Lac-Hydrin 12) 1 applic TP Q24H PRN PRN Reason: DRY SKIN Losartan Potassium (Cozaar -) 100 mg PO DAILY [facility] Last Admin: 02/07/18 10:11 Dose: 100 mg Metoprolol Succinate (Toprol Xl -) 50 mg PO DAILY [facility] Last Admin: 02/07/18 10:11 Dose: 50 mg Ondansetron HCl (Zofran Injection) 4 mg IVPUSH Q6H PRN PRN Reason: NAUSEA AND/OR VOMITING Oxycodone HCl (Roxicodone -) 5 mg PO Q4H PRN PRN Reason: PAIN LEVEL 4 - 6 Last Admin: 02/07/18 01:19 Dose: 5 mg Polyethylene Glycol (Miralax (For Daily Use) -) 17 gm PO DAILY [facility] Last Admin: 02/07/18 10:13 Dose: 17 gm Tamsulosin HCl (Flomax -) 0.4 mg PO 08,0 [facility] - Objective Vital Signs: Last Vital Signs Temp Pulse Resp BP Pulse Ox 98.4 F 100 H 18 141/68 99 02/07/18 10:00 02/07/18 10:00 02/07/18 10:00 02/07/18 10:00 02/06/18 21:00 Neck: Supple Negative JVD no bruit Cardiovascular: S1 S2 Regular Rate Rhythm Grade 1-2/6 SM Respiratory: Clear to A&P Bilaterally Gastrointestinal: Soft Benign Normal Bowel Sounds Ext: Dressing in Situ Labs: CBC, BMP 02/06/18 06:30 02/07/18 10:00 Assessment/Plan: ASSESSMENT: 1. POD#5 post right BKA for right foot gangrene, PAD with right foot gangrene post RLE angiogram and peroneal artery angioplasty 2. CAD angina pectoris stable 3. Diastolic LV dysfunction with class 0 NYHA classification LV failure 4. HTN 5. Acute on chronic CKD, resolved 6. Anemia PLAN: 1. Continue Toprol XL 2. Continue Cozaar 3. Continue ASA and Plavix unless contraindicated 4. Continue diuretics/Lasix with caution Gabby Christianson MD
[2018-02-08] MEDS: DOCUSATE SODIUM 100 MG CAPSULE (FP) PO SCH ×2 (05:27→15:27)
[2018-02-08] MEDS: HEPARIN NA (PORCINE) 5,000 UNITS/ML 1ML VIAL SQ SCH ×2 (05:27→15:29)
[2018-02-08 07:48] LABS: ANION GAP 11 MMOL/L (8-16); BLOOD UREA NITROGEN 10 mg/dL (7-18); CHLORIDE 99 mmol/L (98-107); CO2 26 mmol/L (21-32); CREATININE 0.6 mg/dL (0.55-1.02); GLUCOSE,RANDOM 94 mg/dL (74-106); POTASSIUM 4.4 mmol/L (3.5-5.1); SODIUM 136 mmol/L (136-145)
[2018-02-08] MEDS: ASPIRIN COATED 81 MG TABLET.EC PO SCH (10:11)
[2018-02-08] MEDS: FERROUS SO4 325 MG TABLET (FP) PO SCH ×2 (10:11→16:47)
[2018-02-08] MEDS: CLOPIDOGREL BISULFATE 75 MG TABLET (FP) PO SCH (10:12)
[2018-02-08] MEDS: LOSARTAN POTASSIUM 50 MG TABLET (FP) PO SCH (10:12)
[2018-02-08] MEDS: TAMSULOSIN HCL 0.4 MG CAP.ER.24H (FP) PO SCH ×2 (10:12→17:52)
[2018-02-08] MEDS: FUROSEMIDE 20 MG TABLET (FP) PO SCH (10:12)
[2018-02-08] MEDS: POLYETHYLENE GLYCOL 3350 119 GM BTL PO SCH (10:14)
[2018-02-08] MEDS ORDERED: oxyCODONE HCL 5 MG TABLET PO PRN (11:06)
[2018-02-08] MEDS: COLLAGENASE CLOSTRIDIUM HIST. 30 GRAMS TUBE TP SCH (11:39)
--- NOTE | 2018-02-08 12:39 | PN ---
Physical Exam: SUBJECTIVE: Patient seen and examined. No acute issues. Events: - Straight cath x1 overnight, however urinating freely OBJECTIVE: Vital Signs Period Temp Pulse Resp BP Sys/Mcgill Pulse Ox Last 24 Hr 98.3 F-99.0 F 85-92 18-20 112-136/52-60 99 PE Neuro: alert, awake, cn 2-12intact Pulm: CTAB CV: s1 s2 rrr no mrg Abd: s nt nd + bs Ext: right foot BKA, brace in place Laboratory Results - last 24 hr 02/08/18 06:30 Sodium 136 Potassium 4.4 Chloride 99 Carbon Dioxide 26 Anion Gap 11 BUN 10 Creatinine 0.6 Creat Clearance w eGFR > 60 Random Glucose 94 Calcium 9.0 Active Medications Generic Name Dose Route Start Last Admin Trade Name Freq PRN Reason Stop Dose Admin Acetaminophen 650 mg 02/02/18 14:33 02/07/18 01:20 Tylenol - PO 650 mg Q4H PRN Administration PAIN LEVEL 1 - 3 Aspirin 81 mg 02/06/18 15:08 02/08/18 10:11 Ecotrin - PO 81 mg DAILY [facility] Administration Clopidogrel Bisulfate 75 mg 02/06/18 10:00 02/08/18 10:12 Plavix - PO 75 mg DAILY [facility] Administration Collagenase 1 applic 02/03/18 10:00 02/08/18 11:39 Santyl - TP Not Given DAILY [facility] Protocol Docusate Sodium 100 mg 02/06/18 22:00 02/08/18 05:27 Colace - PO 100 mg TID [facility] Administration Ferrous Sulfate 325 mg 02/02/18 17:30 02/08/18 10:11 Feosol - PO 325 mg BIDWM [facility] Administration Furosemide 20 mg 02/03/18 10:00 02/08/18 10:12 Lasix - PO 20 mg DAILY [facility] Administration Heparin Sodium (Porcine) 5,000 unit 02/03/18 22:00 02/08/18 05:27 Heparin - SQ 5,000 unit TID [facility] Administration Lactic Acid 1 applic 02/03/18 16:33 Lac-Hydrin 12 TP Q24H PRN DRY SKIN Losartan Potassium 100 mg 02/03/18 10:00 02/08/18 10:12 Cozaar - PO 100 mg DAILY [facility] Administration Metoprolol Succinate 50 mg 02/03/18 10:00 02/08/18 10:12 Toprol Xl - PO 50 mg DAILY [facility] Administration Ondansetron HCl 4 mg 02/02/18 13:50 Zofran Injection IVPUSH Q6H PRN NAUSEA AND/OR VOMITING Oxycodone HCl 5 mg 02/08/18 11:06 Roxicodone - PO Q6H PRN PAIN LEVEL 4 - 6 Polyethylene Glycol 17 gm 02/06/18 10:30 02/08/18 10:14 Miralax (For Daily Use) - PO 17 gm DAILY [facility] Administration Tamsulosin HCl 0.4 mg 02/07/18 18:30 02/08/18 10:12 Flomax - PO 0.4 mg 0830,1830 [facility] Administration Assessment: 77 year old female with pmxh HTN, right 3rd toe amputation, chronic non-healing foot wound with gangrene, PAD, s/p RLE angiogram and angioplasty 01/12 admitted with active bleeding and gangrenous right 4th toe. Plan: 1. Urinary retention - Resolved, urinating freely - Continue Flomax BID - Straight cath as needed per discomfort 2. 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 Acute blood loss anemia - Hgb stable, s/p packed cell infusions intra and post op 4. HTN, diastolic CHF - Toprol xl 50mg daily - Losartan 100mg daily - Lasix 20mg - BP controlled off hctz, would d/c on discharge 5. PAD - ASA, plavix 6. Iron deficiency anemia - Dose of venofer given - Continue ferrous sulfate 7. MYA - Resolved Dispo: - SNF
--- NOTE | 2018-02-08 15:17 | DS ---
Physical Exam: SUBJECTIVE: Patient seen and examined. Pt states shes feeling well, drinking water and has not required much pain medication today OBJECTIVE: Vital Signs Period Temp Pulse Resp BP Sys/Mcgill Pulse Ox Last 24 Hr 98.3 F-100.1 F 85-92 18-20 112-137/52-70 99 PE Neuro: alert, awake, cn 2-12intact Pulm: CTAB CV: s1 s2 rrr no mrg Abd: s nt nd + bs Ext: right foot BKA, brace in place Laboratory Results - last 24 hr 02/08/18 06:30 Sodium 136 Potassium 4.4 Chloride 99 Carbon Dioxide 26 Anion Gap 11 BUN 10 Creatinine 0.6 Creat Clearance w eGFR > 60 Random Glucose 94 Calcium 9.0 HOSPITAL COURSE: Date of Admission:01/27/18 Date of Discharge: 02/08/18 Minutes to complete discharge: 36 Discharge Summary Reason For Visit: WOUND ESCHAR OF FOOT, GANGRENE OF TOE Current Active Problems MYA (acute kidney injury) (Acute) Cellulitis of foot, right (Acute) Diastolic dysfunction (Acute) Hypertensive cardiomyopathy (Acute) S/P BKA (below knee amputation) (Acute) Status post below knee amputation of right lower extremity (Acute) Gangrenous toe (Chronic) PVD (peripheral vascular disease) (Chronic) Wound eschar of foot (Chronic) Hospital Course: Initial Hospital Course: 77 year old female with PMH PAD, HTN, Chronic LE edema, s/p R 3rd toe amputation (june), s/p R SFA stenting presented to the hospital for R foot bleeding. Patient in the shower when she noticed copious amounts of blood coming from the distal right foot from what she believes is near the site of the prior amputation of the 3rd toe. She denied any pain at the site of the toe but stated it was very dark and unable to move it. Reported chronic lower extremity edema that may appear slightly worse this evening. Patient reports getting hyperbaric oxygen treatment every day. Subsequent Hospital Course/Progress Note/DC summary: Assessment: 77 year old female with pmxh HTN, right 3rd toe amputation, chronic nonhealing foot wound with gangrene, PAD, s/p RLE angiogram and angioplasty 01/12 admitted with active bleeding and gangrenous right 4th toe. Plan: 1. Urinary retention - Resolved, however with intermittent post void residual requiring straight cath - Continue flomax BID, started here, can dc as voiding improves - Voiding slow likely due to oxycodone and decreased mobility - Straight cath q6hr prn 2. 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 Acute blood loss anemia - Hgb stable, s/p packed cell infusions intra and post op 4. HTN, diastolic CHF - Toprol xl 50mg daily - Losartan 100mg daily - Lasix 20mg 5. PAD - ASA, plavix 6. Iron deficiency anemia - Dose of venofer given - Continue ferrous sulfate 7. MYA - Resolved 8. Constipation - Cont bowel regimen Dispo: - SNF - F/u with Dr. Gold in 2 weeks - DW pt and daughter Condition: Stable - Instructions Diet, Activity, Other Instructions: Please return to the ED for any new, persistent, or worsening symptoms. Follow up with your PCP in 1 week Take home medications as directed on home medication list Follow up with Dr. Gold in 2 weeks Can stop flomax once off pain meds and active, no post void residual Referrals: Dennis Gold MD [Staff Physician] - Disposition: [facility] - Home Medications Comprehensive Discharge Medication List: Ambulatory Orders Furosemide 20 mg PO DAILY 07/12/17 Metoprolol Succinate 50 mg PO DAILY 07/12/17 Aspirin [ASA -] 1 tab PO DAILY 09/20/17 Collagenase Clostridium Hist. [Santyl -] 1 applic TP DAILY tube 12/02/17 Clopidogrel Bisulfate [Clopidogrel] 75 mg PO DAILY #30 tablet 01/17/18 Docusate Sodium [Colace -] 100 mg PO TID capsule 02/07/18 Ferrous Sulfate [Feosol] 325 mg PO BIDWM #60 ud 02/07/18 Losartan Potassium [Cozaar -] 100 mg PO DAILY #60 tablet 02/07/18 Polyethylene Glycol 3350 [Miralax 119 gm Btl -] 17 gm PO DAILY bottle 02/07/18 Sennosides [Senna -] 1 tab PO HS #30 tablet 02/07/18 oxyCODONE HCL [Roxicodone -] 5 mg PO Q4H PRN tablet MDD 6 02/07/18 Ammonium Lactate Lotion [Lac-Hydrin 12] 1 applic TP Q24H PRN bottle 02/08/18 Tamsulosin HCl [Flomax -] 0.4 mg PO BID cap.er.24h 02/08/18 This patient is new to me today: No Emergency Visit: Yes ED Registration Date: 01/27/18 Care time: The patient presented to the Emergency Department on the above date and was hospitalized for further evaluation of their emergent condition. Critical Care patient: No - Discharge Referral Referred to [facility] Yes Physician Referral: Dennis Gold DO ([facility])
[2018-02-08 17:43] VITALS: BP 155/69; PULSE 85; TEMP 98
--- NOTE | 2018-02-09 00:21 | OP ---
DATE OF OPERATION: 01/27/2018 PREOPERATIVE DIAGNOSIS: Right foot gangrene. POSTOPERATIVE DIAGNOSIS: Right foot gangrene. PROCEDURE: Attempted right lower extremity angiogram. SURGEON: Dennis Arcos M.D. ANESTHESIA: Fractional. BLOOD LOSS: 5 mL. INDICATION: The patient is a 77-year-old female that has right foot gangrene. Before she gets her below-knee amputation, we wanted to see if we could do a retrograde angiogram in her right lower extremity because the DP is visualized in the forefoot, and see if we can go retrograde do angioplasty of the and open the occlusion. Patient was consented for the procedure, understanding all risks, benefits, and alternatives, and taken to the operating room. DESCRIPTION OF PROCEDURE: Once in the operating room, she was laid on the operating table in a supine manner, and the area of the right foot was prepped and draped in sterile surgical manner. Under ultrasound guidance we visualized right dorsalis pedis and 2 mL of lidocaine 1% was injected there. We then took our micropuncture needle and punctured the right dorsalis pedis artery. We got good backflow. We then placed our micropuncture wire into the needle, and the micropuncture wire would not advance. Multiple sticks to the dorsalis pedis was performed, but the wire would not advance due to occlusion of the anterior tibial artery. At this point we decided that there was no more intervention needed. We cannot access the artery due to its chronic occlusion. We removed the needle. Pressure was held over the right forefoot for 5 minutes. After there was no more bleeding, area was wet and dried, and 4x4 Kerlix was placed for dressing. Patient was transferred to PACU in stable condition. We will now speak to the family to schedule a below-knee amputation. DENNIS ARCOS DO [id number]
--- NOTE | 2018-02-09 07:44 | OP ---
DATE OF OPERATION: 02/02/2018 PREOPERATIVE DIAGNOSIS: Right foot gangrene. POSTOPERATIVE DIAGNOSIS: Right foot gangrene. PROCEDURE: Right below-knee amputation. SURGEON: Dennis Arcos MD ANESTHESIA: General. BLOOD LOSS: 100 mL. Patient received blood volume replaced 250 mL. INDICATIONS: Ms. Nancy Anton is a 77-year-old female who has right foot gangrene. The gangrene was progressing despite having angioplasty performed, and it was thought that she would need a BKA due to her excruciating rest pain. Patient was consented for the procedure understanding all risks, benefits, and alternatives. PROCEDURE IN DETAIL: Patient was then brought to the operating room, laid down on the operating room table in a supine manner. General anesthesia was administered to the patient and a Heck catheter was placed. We then went ahead and took a skin marker, and we were able to go 4 fingerbreadths below the tibia to the right tibial tuberosity and draw a step-off incision. The right leg was then prepped and draped in a sterile surgical manner. We then went ahead and took a No. 15 blade and made an incision along our entire skin rajni, a step-off incision for which cautery was used to control hemostasis. We were able to use Bovie electrocautery and get down to the muscles surrounding the tibia and the fibula, and those were taken down using Bovie electrocautery. We dissected out our anterior tibial artery vein and artery, and those were clamped and suture ligated with 0 silk. We then were able to dissect out our posterior tibial artery and vein, and those were clamped and suture using 0 silk. We then went through and exposed the psoas muscle, and below the psoas muscle, we were able to get down to the peroneal artery and the peroneal artery vein and artery were clamped and suture ligated using 0 silk. We then went ahead and dissected out our tibia and our fibula. We then took our incision and brought it posteriorly, where we were able to take down the gastrocnemius muscles using Bovie electrocautery. Once the muscles were all freed up, we were able to then use our bone saw, and we transected the tibia, and then 2 cm above that, we transected the fibula. The leg was then removed and sent down to Pathology. Bovie electrocautery was used to control all hemostasis. We then used our bone saw, and we were able to bevel the tibia, so that it does not cause any traumatic effects to our skin flap. We used a rasp and we filed away the fibula to make sure there were no sharp edges. We irrigated the wound copiously. We then went ahead 2-0 Vicryl and we approximated a the fascia in an interrupted manner. We then did a 2nd layer of 3-0 Vicryl to approximate the subcutaneous tissue, and then, the skin was closed with skin oj. Area was wet and dried. Xeroform, 4x4s, ABD pads, Kerlix, and Coban was placed. The patients leg was placed in the knee immobilizer. The patient tolerated the procedure with no complications. Patient transferred to PACU in stable condition. DENNIS ARCOS DO [id number]
== END 2018-02-08 18:18 | DRG 240 ==
LOC: JER 23:11 → UNDOADMOB 01-27 02:52 → JERBED 01-27 02:52 → INTOOBSV 01-27 03:07 → OBSVTOIN 01-27 03:07 → JERBED 01-27 03:07 → OBSVTOIN 01-27 03:57 → INTOOBSV 01-27 03:57 → JERBED 01-27 03:57 → UNDOADMOB 01-27 03:57 → JERBED 01-27 05:07 → J8W 01-27 05:07
PROVIDERS: ADMIT Internal Medicine; ATTEND Nurse Practitioner Acute Care
PROC: B50BYZZ Plain Radiography of Right Lower Extremity Veins using Other Contrast (ICD-10-PCS; principal; 2018-01-27 14:00)
PROC: 0Y6H0Z2 Detachment at Right Lower Leg, Mid, Open Approach (ICD-10-PCS; 2018-02-02)
PROC: 30233N1 Transfusion of Nonautologous Red Blood Cells into Peripheral Vein, Percutaneous Approach (ICD-10-PCS; 2018-02-02)
DX: I73.9 Peripheral vascular disease, unspecified (principal); I50.32 Chronic diastolic (congestive) heart failure; N17.9 Acute kidney failure, unspecified; I43 Cardiomyopathy in diseases classified elsewhere; D62 Acute posthemorrhagic anemia; I10 Essential (primary) hypertension; D50.9 Iron deficiency anemia, unspecified; I11.0 Hypertensive heart disease with heart failure; I25.119 Atherosclerotic heart disease of native coronary artery with unspecified angina pectoris; R33.9 Retention of urine, unspecified; K59.00 Constipation, unspecified; I77.9 Disorder of arteries and arterioles, unspecified; Z89.421 Acquired absence of other right toe(s)
CPT/HCPCS: 36415; 36430; 36511; 71045-TC-FY; 80048; 80053; 82728; 82962; 83540; 83550; 83735; 85025; 85027; 85044; 85610; 85651; 86140; 86850; 86900; 86901; 86922; 88307-TC; 88311-TC; 93005; 93010; 93971-TC; 94760; 97116-GP; 97161-GP; 99282-25; G0378; G0480; J1644; J1756; J7030; P9038; P9058